=== PATIENT | female | born 1985 | race Caucasian/White ===

== ENCOUNTER → 2017-03-28 | Outpatient (CLI) | payer MEDICARE, OTHER ==
[~2017-03-28] MED LIST: *ONDANSETRON 4 MG VIAL PERIprocedural Use ONLY ONE; *RESP: ALBUTEROL 2.5 MG/3 ML NEB (PRN) PERIprocedural Use ONLY NEB ONE; ADVA250A INH; ALBU.5I NEB; ARIP1TAB7 PO; ARIP20 PO; BUPR100T4 PO; BUPR150T3 PO; CHLORHEXIDINE GLUCONATE 2 % 1 PACK (2 CLOTHS) TOPICAL PRN; COMBAER INH; DEXAMETHASONE SOD PHOS 4 MG/ML VIAL IV ONE; DO NOT ADM ANY ANTICOAGULANT DRUGS PRN; DOCU1CAP39 PO; DUONI NEB; FLON0.053 NASAL; INSULIN HUMAN REGULAR 1,000 UNITS/10 ML VIAL SQ PRN; LACTATED RINGER'S 1,000 ML BAG IV ONE; LACTATED RINGER'S 1000 ML IV PRN; LISI-363 PO; LISI-515 PO; LORTA5 PO; METOPROLOL TARTRATE 25 MG TAB PO PRN; MONT10TA2 PO; OMEP20CA2; OMEP20TA39 PO; ONDANSETRON HCL 4 MG/2 ML VIAL IV PUSH ONE; PHENYLEPH/NS 1000 MCG/10 ML SYR IV ONE; POVIDONE IODINE 5% (ANTISEPSIS KIT) 4 APPLICATIONS EACH NARE PRN; PROPOFOL 200 MG/20 ML AMP IV ONE; SERT-129 PO; SUCCINYLCHOLINE CHLORIDE 200 MG/10 ML VIAL IV ONE; TOPA50TA7 PO; TOPI25CA PO; Z.0.OXYGEN INH; Z.0.OXYGENDME NC
[2017-03-28 10:45] VITALS: BP 157/82; PULSE 83; RESP 20; TEMP 99.1; O2SAT 95
[2017-03-28 15:57] VITALS: BP 184/80; PULSE 100; RESP 18; TEMP 98.1; O2SAT 100
--- NOTE | 2017-03-29 15:32 | MR ---
cc: DEVONTE AGRAWAL DATE: 03/28/2017 PROCEDURE Upper endoscopy, colonoscopy. 1985 INDICATION FOR PROCEDURE 1. Abdominal pain. 2. Nausea, vomiting. 3. History of previous gastric sleeve procedure. 4. Rectal bleeding. Photographs and biopsies were taken, polypectomy was performed and upper endoscopy. MONITORING Monitoring was accomplished with pulse oximeter, EKG, blood pressure monitor. PROCEDURE NOTE The patient was intubated to protect the airway at the start of the procedure. This was performed by anesthesiology. After intubation was completed the forward-viewing endoscope was inserted per the oral route and the esophagus was inspected and found to be normal. There was no evidence of esophagitis. The scope was gradually passed into the stomach which revealed changes consistent with previous gastric sleeve, bariatric surgery. Elongated portion of the stomach was traversed. The antrum was approached. In the antrum two gastric polyps were noted, one about 6 mm, the other one about 5 mm, both of these were snared and removed. The antrum revealed mild gastritis. This was biopsied as well. The pylorus was patent. The first, second, third portion of the duodenum were unremarkable. In the retroflex view the cardia and fundus were unremarkable. Scope was withdrawn. The patient was repositioned and colonoscopy performed. The video enteroscope was inserted per the rectum. The rectum was carefully inspected and in the retroflex view I could not appreciate any obvious bleeding source. Scope was advanced with gentle pressure to the cecum and the terminal ileum was also entered. Mucosa throughout this examination appeared to be grossly normal. There was some residual liquefied stool which was suctioned as best possible. I did not appreciate any bleeding source or space-occupying lesions. The scope was gradually withdrawn. The patient tolerated the procedure well. Postprocedure vital signs were stable. She was to be extubated. IMPRESSION Upper endoscopy revealed previous gastric sleeve, two gastric polyps were removed and retrieved. Mild antrum gastritis was biopsied. Otherwise, upper endoscopy was unremarkable. Colonoscopy was completely unremarkable to the terminal ileum and cecum without any active bleeding source seen. PLAN Follow up biopsies taken today. Will follow up clinically as an outpatient for further discussion as to the findings and if need be further workup, we could consider gastric emptying study as well. Continue supportive therapy as an outpatient. MD MACY Escobedo/DEVAN /2:53 PM /3:16 PM
== END ==
LOC: HEND 10:36
PROVIDERS: ATTEND Internal Medicine Gastroenterology
DX: R10.9 Unspecified abdominal pain (principal); R11.2 Nausea with vomiting, unspecified; Z98.84 Bariatric surgery status; K62.5 Hemorrhage of anus and rectum; K31.7 Polyp of stomach and duodenum; K29.50 Unspecified chronic gastritis without bleeding
CPT/HCPCS: 00740; 00810; 43239; 43251; 45378; 88305; 88312; J0330; J1100; J2370; J2405; J3010; J7120; J7613; 94664

== ENCOUNTER 2017-04-24 10:29 | Inpatient (IN) | payer MEDICARE, OTHER ==
[~2017-04-24] VITALS: Ht 162.6 cm; Wt 231.3 kg
[~2017-04-24 10:29] MED LIST changes: -*ONDANSETRON 4 MG VIAL PERIprocedural Use ONLY ONE; -*RESP: ALBUTEROL 2.5 MG/3 ML NEB (PRN) PERIprocedural Use ONLY NEB ONE; -ADVA250A INH; -ARIP20 PO; -BUPR150T3 PO; -CHLORHEXIDINE GLUCONATE 2 % 1 PACK (2 CLOTHS) TOPICAL PRN; -COMBAER INH; -DEXAMETHASONE SOD PHOS 4 MG/ML VIAL IV ONE; -DO NOT ADM ANY ANTICOAGULANT DRUGS PRN; -DOCU1CAP39 PO; -DUONI NEB; -FLON0.053 NASAL; -INSULIN HUMAN REGULAR 1,000 UNITS/10 ML VIAL SQ PRN; -LACTATED RINGER'S 1,000 ML BAG IV ONE; -LACTATED RINGER'S 1000 ML IV PRN; -LISI-363 PO; -LORTA5 PO; -METOPROLOL TARTRATE 25 MG TAB PO PRN; -OMEP20TA39 PO; -ONDANSETRON HCL 4 MG/2 ML VIAL IV PUSH ONE; -PHENYLEPH/NS 1000 MCG/10 ML SYR IV ONE; -POVIDONE IODINE 5% (ANTISEPSIS KIT) 4 APPLICATIONS EACH NARE PRN; -PROPOFOL 200 MG/20 ML AMP IV ONE; -SUCCINYLCHOLINE CHLORIDE 200 MG/10 ML VIAL IV ONE; -TOPI25CA PO; -Z.0.OXYGEN INH; -Z.0.OXYGENDME NC
[2017-04-24 10:32] VITALS: BP 176/85; PULSE 88; RESP 16; TEMP 98.2; O2SAT 98
--- NOTE | 2017-04-24 11:16 | PD ---
HPI Chief Complaint: Psychiatric Symptoms Time Seen by Provider: 11:11 Travel History International Travel<30 days: No Contact w/Intl Traveler<30days: No Traveled to known affect area: No History of Present Illness HPI 32-year-old female with PMH of COPD, depression, bipolar presents to the ED for evaluation of visual and auditory hallucinations. Patient states that she has been seeing visions of dilators and knives "for years." She states that yesterday she began to hear voices saying "You're nothing. You should cut yourself." Patient admits to making several superficial scratches on the right wrist. She denies suicidal or homicidal ideation. She endorses compliance with her multiple psychiatric medications. She complains of shortness of breath which she thinks is related to her heightened anxiety. Also endorses occasional nonproductive cough. No other somatic complaints. States last tetanus immunization was in 2012. States LMP "last month." Denies risk of . PFSH Past Medical History Hx Anticoagulant Therapy: No ADD: Yes ADHD: Yes Arthritis: No Asthma: Yes Autoimmune Disease: Yes (IGG DEF) Blood Disorders: No Bipolar Disorder: Yes Anxiety: Yes Depression: Yes Heart Rhythm Problems: No Cancer: No Cardiovascular Problems: Yes (HTN) High Cholesterol: Yes Chest Pain: No Congestive Heart Failure: No COPD: Yes Cerebrovascular Accident: No Diabetes: No Diminished Hearing: No Endocrine: No Gastrointestinal Disorders: Yes (GERD) GERD: Yes Glaucoma: No Genitourinary: No Headaches: No Hepatitis: No Hiatal Hernia: No Hypertension: Yes Immune Disorder: No Kidney Stones: No Musculoskeletal: No Neurologic: No Psychiatric: Yes (BIPOLAR) Reproductive: No Respiratory: Yes (ASTHMA, ARDS) Integumentary: Yes (PSORIASIS) Myocardial Infarction: No Renal Failure: No Seizures: No Sickle Cell Disease: No Sleep Apnea: Yes (BIPAP) Thyroid Disease: No Ulcer: No ?: Not LMP: 03/25/2017 : 0 Ectopic : No Ovarian Cysts: No Tubal Ligation: No Past Surgical History Abdominal Surgery: Yes (VERTICAL SLEEVE GASTRECTOMY) AICD: No Arteriovenous Shunt: No Body Medical Devices: NONE Cardiac Surgery: No Ear Surgery: No Endocrine Surgery: No Eye Surgery: Yes (SURGERY ON RIGHT EYE) Genitourinary Surgery: No Gynecologic Surgery: No Hysterectomy: No Insulin Pump: No Joint Replacement: No Oral Surgery: Yes (ADENOIDECTOMY) Pacemaker: No Thoracic Surgery: No Tonsillectomy: Yes Other Surgery: Yes Social History Alcohol Use: No Tobacco Use: No Substance Use: No Allergies-Medications (Allergen,Severity, Reaction): Coded Allergies: Adhesives (Unverified Allergy, Severe, RASH, 04/24/17) Augmentin (Verified Allergy, Severe, VOMITING, 04/24/17) Baclofen (Unverified Allergy, Severe, NAUSEA AND VOMITING, 04/24/17) Biaxin (Verified Allergy, Severe, VOMITING, 04/24/17) Latex (Unverified Allergy, Severe, RASH/ITCHING, 04/24/17) Methocarbamol (Unverified Allergy, Severe, 04/24/17) Shellfish (Verified Allergy, Severe, Hives, 04/24/17) *MDRO Multi-Drug Resistant Organism (Verified Adverse Reaction, Unknown, ) MRSA (finger wound) - 07/11/11 Reported Meds & Prescriptions Reported Meds & Active Scripts Active Reported Topamax (Topiramate) 50 Mg Tab 50 Mg PO BID Sertraline (Sertraline HCl) 100 Mg Tab 200 Mg PO HS Omeprazole 20 Mg Cap Singulair (Montelukast Sodium) 10 Mg Tab 10 Mg PO HS Lisinopril 20 Mg Tab 20 Mg PO DAILY Albuterol Neb (Albuterol Sulfate) 2.5 Mg/0.5 Ml Neb 2.5 Mg NEB Q6HR NEB PRN Note: The Albuterol Sulfate Inhalation Solution is concentrated and must be diluted. Read complete instructions carefully before using. Bupropion HCl 100 Mg Tab 300 Mg PO HS Abilify (Aripiprazole) 20 Mg Tab 20 Mg PO DAILY Review of Systems Except as stated in HPI: all other systems reviewed are Neg Physical Exam Narrative GENERAL: Morbidly obese hirsute white female in no acute distress. PSYCHIATRIC: No delusional thought processes. Appropriate eye contact. SKIN: Focused skin assessment warm, dry, dirty. HEAD: Normocephalic. EYES: No scleral icterus. No injection or drainage. NECK: Supple, trachea midline. No JVD or lymphadenopathy. CARDIOVASCULAR: Regular rate and rhythm without murmurs, gallops, or rubs. RESPIRATORY: Breath sounds clear and equal bilaterally. No accessory muscle use. GASTROINTESTINAL: Abdomen protuberant, soft, non-tender, nondistended. Active bowel sounds. MUSCULOSKELETAL: No cyanosis, or edema. BACK: Nontender without obvious deformity. No CVA tenderness. Data Data Last Documented VS Vital Signs Date Time Temp Pulse Resp B/P Pulse Ox O2 Delivery O2 Flow Rate FiO2 04/24/17 10:32 98.2 88 16 176/85 98 Orders Complete Blood Count With Diff (04/24/17 11:04) Comprehensive Metabolic Panel (04/24/17 11:04) Urinalysis - C+S If Indicated (04/24/17 11:04) Ed Urine Pregnancytest Poc (04/24/17 11:04) Psych Screen (04/24/17 11:04) Drug Screen, Random Urine (04/24/17 11:04) Alcohol (Ethanol) (04/24/17 11:04) Chest, Single Ap (04/24/17 ) Labs Laboratory Tests Test 04/24/17 12:10 White Blood Count 8.4 TH/MM3 Red Blood Count 4.77 MIL/MM3 Hemoglobin 13.3 GM/DL Hematocrit 39.9 % Mean Corpuscular Volume 83.7 FL Mean Corpuscular Hemoglobin 27.8 PG Mean Corpuscular Hemoglobin 33.3 % Concent Red Cell Distribution Width 14.2 % Platelet Count 293 TH/MM3 Mean Platelet Volume 8.1 FL Neutrophils (%) (Auto) 54.5 % Lymphocytes (%) (Auto) 30.9 % Monocytes (%) (Auto) 8.6 % Eosinophils (%) (Auto) 5.0 % Basophils (%) (Auto) 1.0 % Neutrophils # (Auto) 4.6 TH/MM3 Lymphocytes # (Auto) 2.6 TH/MM3 Monocytes # (Auto) 0.7 TH/MM3 Eosinophils # (Auto) 0.4 TH/MM3 Basophils # (Auto) 0.1 TH/MM3 CBC Comment DIFF FINAL Differential Comment Urine Color YELLOW Urine Turbidity HAZY Urine pH 6.0 Urine Specific [place] 1.027 Urine Protein TRACE mg/dL Urine Glucose (UA) NEG mg/dL Urine Ketones NEG mg/dL Urine Occult Blood SMALL Urine Nitrite NEG Urine Bilirubin NEG Urine Urobilinogen LESS THAN 2.0 MG/DL Urine Leukocyte Esterase TRACE Urine RBC 2 /hpf Urine WBC 3 /hpf Urine Squamous Epithelial 7 /hpf Cells Urine Bacteria RARE /hpf Urine Mucus FEW /lpf Microscopic Urinalysis Comment CULT NOT INDICATED Sodium Level 141 MEQ/L Potassium Level 4.0 MEQ/L Chloride Level 109 MEQ/L Carbon Dioxide Level 25.7 MEQ/L Anion Gap 6 MEQ/L Blood Urea Nitrogen 15 MG/DL Creatinine 0.91 MG/DL Estimat Glomerular Filtration 73 ML/MIN Rate Random Glucose 102 MG/DL Calcium Level 8.8 MG/DL Total Bilirubin 0.2 MG/DL Aspartate Amino Transf 80 U/L (AST/SGOT) Alanine Aminotransferase 96 U/L (ALT/SGPT) Alkaline Phosphatase 134 U/L Total Protein 8.1 GM/DL Albumin 3.4 GM/DL Ethyl Alcohol Level LESS THAN 3 MG/DL MDM Medical Decision Making Medical Screen Exam Complete: Yes Emergency Medical Condition: Yes Medical Record Reviewed: Yes Differential Diagnosis Adjustment disorder versus anxiety versus bipolar versus depression versus dementia versus electrolyte disorder versus malingering versus mood disorder versus ODD versus psychosis versus PTSD versus schizophrenia versus schizoaffective disorder versus substance-induced mood disorder versus other Narrative Course 32-year-old female with PMH of COPD, depression, bipolar presents to the ED for evaluation of visual and auditory hallucinations. Patient states that she has been seeing visions of daggers and knives "for years." She states that yesterday she began to hear voices saying "You're nothing. You should cut yourself." Patient admits to making several superficial scratches on the right wrist. She denies suicidal or homicidal ideation. She endorses compliance with her multiple psychiatric medications. She complains of shortness of breath which she thinks is related to heightened anxiety. Also endorses occasional nonproductive cough. No other somatic complaints. Last tetanus 2012. Denies risk of . Vitals reviewed. Physical exam is unremarkable. Labs reveal elevation of LFTs which appears chronic per review of the record. No other concerning lab abnormalities. Patient is medically cleared for psychiatric evaluation. Please see psychiatric note for disposition. Diagnosis Primary Impression: Medical clearance for psychiatric admission Tanesha Shah Apr 24, 2017 11:16
--- NOTE | 2017-04-24 12:22 | RADRPT ---
EXAM DATE/TIME: 04/24/2017 11:25 [facility] COMPARISON: No previous studies available for comparison. INDICATIONS : Short of breath. MEDICAL HISTORY : Chronic obstructive pulmonary disease. asthma SURGICAL HISTORY : None. ENCOUNTER: Initial ACUITY: 1 day PAIN SCORE: 0/10 LOCATION: Bilateral chest FINDINGS: A single view of the chest is limited due to the patient's body habitus. Grossly, lungs are clear. Ac counting for the degree of inspiration, heart size is upper limits of normal. No obvious effusions. O sseous structures are intact. CONCLUSION: 1. Limited anatomic detail due to the patient's body habitus. 2. However, lungs are grossly clear. Heart size is borderline but well compensated. Flakito Thurman MD on April 24, 2017 at 12:19 Board Certified Radiologist. This report was verified electronically.
[2017-04-24 12:33] LABS: BACTERIA, URINE RARE /hpf; BLOOD, URINE SMALL (NEG); COMMENT (UR) CULT NOT INDICATED; CULTURE IF INDICATED CULT NOT INDICATED; GLUCOSE,URINE NEG (NEG); KETONE, URINE NEG (NEG); MUCUS URINE FEW /lpf (OCC); NITRITE,URINE NEG (NEG); SQUAMOUS EPITHELIAL CELL URINE 7 /hpf (0-5); URINE COLOR YELLOW (YELLW/STRAW)
[2017-04-24 12:35] LABS: AUTOMATED NEUTROPHIL # 4.6 TH/MM3 (1.8-7.7); BASOPHIL # 0.1 TH/MM3 (0-0.2); EOSINOPHIL # 0.4 TH/MM3 (0-0.4); HEMATOCRIT 39.9 % (35.0-46.0); HEMO FLAGS DIFF FINAL; LYMPH % 30.9 % (9.0-44.0); LYMPHOCYTE # 2.6 TH/MM3 (1.0-4.8); MEAN CELL VOLUME 83.7 FL (80.0-100.0); MEAN CORPUSCULAR HEMOGLOBIN 27.8 PG (27.0-34.0); MEAN CORPUSCULAR HGB CONC 33.3 % (32.0-36.0); MONO % 8.6 % (0.0-8.0); NEUT % 54.5 % (16.0-70.0); PLATELET COUNT 293 TH/MM3 (150-450); RED BLOOD COUNT 4.77 MIL/MM3 (4.00-5.30); RED CELL DISTRIBUTION WIDTH 14.2 % (11.6-17.2); WHITE BLOOD COUNT 8.4 TH/MM3 (4.0-11.0)
[2017-04-24 12:55] LABS: ALT (GPT) 96 U/L (10-53); ANION GAP 6 MEQ/L (5-15); AST (GOT) 80 U/L (15-37); BICARBONATE 25.7 MEQ/L (21.0-32.0); BLOOD UREA NITROGEN 15 MG/DL (7-18); CHLORIDE 109 MEQ/L (98-107); GLOMERULAR FILTRATION RATE 73 ML/MIN (>89); SODIUM (NA) 141 MEQ/L (136-145)
[2017-04-24 12:57] LABS: ALKALINE PHOSPHATASE 134 U/L (45-117); TOTAL BILIRUBIN ADULT 0.2 MG/DL (0.2-1.0)
[2017-04-24 19:19] VITALS: BP 141/72; PULSE 77; RESP 20; TEMP 98.4; O2SAT 93
[2017-04-24] MEDS ORDERED: diphenhydrAMINE HCL 50 MG CAP - HS PRN PO (19:45)
[2017-04-24] MEDS ORDERED: BENZTROPINE MESYLATE 1 MG TAB PO PRN (19:45)
[2017-04-24] MEDS ORDERED: ACETAMINOPHEN 325 MG TAB PO PRN (19:45)
[2017-04-24] MEDS ORDERED: MAGNESIUM HYDROXIDE SUSP 30 ML CUP PO PRN (19:45)
[2017-04-24] MEDS ORDERED: BENZTROPINE MESYLATE 2 MG/2 ML VIAL IM PRN (19:45)
[2017-04-24] MEDS ORDERED: REMOVE OLD NICOTINE PATCH T-DERMAL SCH (21:00)
[2017-04-24] MEDS: TOPIRAMATE 25 MG TAB PO SCH (22:08)
[2017-04-24] MEDS: MONTELUKAST SODIUM 10 MG TAB PO SCH (22:08)
[2017-04-24] MEDS: SERTRALINE HCL 100 MG TAB PO SCH (22:08)
[2017-04-24] MEDS: buPROPion HCL 150 MG SUSTAINED RELEASE TAB PO SCH (22:08)
[2017-04-24 22:10] VITALS: BP 172/83; PULSE 78; RESP 22; TEMP 97.7; O2SAT 94
[2017-04-25 02:04] LABS: AMPHETAMINE, URINE NEG (NEG); BARBITURATES, URINE NEG (NEG); COCAINE, URINE NEG (NEG)
[2017-04-25] MEDS: hydrOXYzine HCL 50 MG TAB PO PRN ×3 (02:45→20:10)
[2017-04-25 06:00] VITALS: BP 163/69; PULSE 78; RESP 20; TEMP 98; O2SAT 94
[2017-04-25] MEDS: buPROPion HCL 150 MG SUSTAINED RELEASE TAB PO SCH ×2 (08:18→20:10)
[2017-04-25] MEDS: PANTOPRAZOLE SOD 20 MG DELAYED RELEASE TAB PO SCH (08:18)
[2017-04-25] MEDS: TOPIRAMATE 25 MG TAB PO SCH ×2 (08:19→20:10)
[2017-04-25] MEDS: LISINOPRIL 20 MG TAB PO SCH (08:19)
[2017-04-25] MEDS ORDERED: NICOTINE 21 MG/24 HR PATCH T-DERMAL SCH (09:00)
[2017-04-25 09:13] LABS: HDL CHOLESTEROL 55.1 MG/DL (40.0-60.0); LDL CHOLESTEROL 123 MG/DL (0-99)
[2017-04-25 09:17] LABS: ANION GAP 8 MEQ/L (5-15); BICARBONATE 24.8 MEQ/L (21.0-32.0); BLOOD UREA NITROGEN 15 MG/DL (7-18); CHLORIDE 106 MEQ/L (98-107); GLOMERULAR FILTRATION RATE 85 ML/MIN (>89); SODIUM (NA) 139 MEQ/L (136-145)
[2017-04-25] MEDS ORDERED: cloNIDine HCL 0.1 MG TAB PO PRN (14:00)
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
--- NOTE | 2017-04-25 15:40 | PD.CONS ---
HPI Service [facility] Consult Requested By Psychiatry team Reason for Consult Medical management - Primary Care Physician Zay Baeza DO Diagnoses: History of Present Illness Written by Zak Rivera, acting as scribe for Dr. Villareal on 04/25/17 at 15:20. This note was transcribed by scribSumeet MCGILL. I, Dr. Maddie Villareal personally performed the history, physical exam, and medical decision making; and confirmed the accuracy of the information in the transcribed note. Authenticated by Dr. Maddie Villareal on 04/25/17 at 15:20. Patient is a 32-year-old female with primary medical history of morbid obesity, COPD, HLD, HTN, GERD, asthma, ACOSTA on BiPAP, depression, bipolar disorder who came into the hospital secondary to visual and auditory hallucinations. She is now admitted to inpatient psychiatry unit for further evaluation. Consulted for medical management. Patient states that she is hearing voices and she is also wanting to cut herself. She states that she has visual hallucinations of seeing "daggers and knives." Patient states she uses 2 L nasal cannula and BiPAP at night but not during the daytime. Reports some cough, not expectorating. Reports some nausea occasionally. Denies any vomiting, abdominal cramping. Denies any headaches, chest pain, palpitations, dizziness. Denies dysuria. Denies shortness of breath. Review of Systems Except as stated in HPI: all other systems reviewed are Neg Past Family Social History Allergies: Coded Allergies: Adhesives (Unverified Allergy, Severe, RASH, 04/24/17) Augmentin (Verified Allergy, Severe, VOMITING, 04/24/17) Baclofen (Unverified Allergy, Severe, NAUSEA AND VOMITING, 04/24/17) Biaxin (Verified Allergy, Severe, VOMITING, 04/24/17) Latex (Unverified Allergy, Severe, RASH/ITCHING, 04/24/17) Methocarbamol (Unverified Allergy, Severe, 04/24/17) Shellfish (Verified Allergy, Severe, Hives, 04/24/17) *MDRO Multi-Drug Resistant Organism (Verified Adverse Reaction, Unknown, ) MRSA (finger wound) - 07/11/11 Past Medical History Morbid obesity COPD Depression Bipolar disorder HTN HLD GERD Asthma Psoriasis ACOSTA on BiPAP Past Surgical History Vertical sleeve gastrectomy Right eye surgery Adenoidectomy Reported Medications Reported Meds & Active Scripts Active Reported Topamax (Topiramate) 50 Mg Tab 50 Mg PO BID Sertraline (Sertraline HCl) 100 Mg Tab 200 Mg PO HS Omeprazole 20 Mg Cap Singulair (Montelukast Sodium) 10 Mg Tab 10 Mg PO HS Lisinopril 20 Mg Tab 20 Mg PO DAILY Albuterol Neb (Albuterol Sulfate) 2.5 Mg/0.5 Ml Neb 2.5 Mg NEB Q6HR NEB PRN Note: The Albuterol Sulfate Inhalation Solution is concentrated and must be diluted. Read complete instructions carefully before using. Bupropion HCl 100 Mg Tab 300 Mg PO HS Abilify (Aripiprazole) 20 Mg Tab 20 Mg PO DAILY Active Ordered Medications Current Medications Medications (Trade) Dose Ordered Sig/Minesh Route Start Time Stop Time Status Last Admin (Atarax) 50 mg Q6H PRN PO 04/24/17 19:45 04/25/17 13:05 (Cogentin) 1 mg Q12H PRN PO 04/24/17 19:45 (Cogentin Inj) 1 mg Q12H PRN IM 04/24/17 19:45 (Benadryl) 50 mg HS PRN PO 04/24/17 19:45 04/24/17 22:30 (Tylenol) 650 mg Q4H PRN PO 04/24/17 19:45 (Milk Of Magnesia Liq) 30 ml DAILY PRN PO 04/24/17 19:45 (Mag-Al Plus Susp Liq) 30 ml Q6H PRN PO 04/24/17 19:45 (Abilify) 20 mg DAILY PO 04/25/17 09:00 04/25/17 08:18 (Wellbutrin Sr) 150 mg BID PO 04/24/17 21:00 04/25/17 08:18 (Prinivil) 20 mg DAILY PO 04/25/17 09:00 04/25/17 08:19 (Singulair) 10 mg HS PO 04/24/17 21:00 04/24/17 22:08 (Protonix) 20 mg DAILY PO 04/25/17 09:00 04/25/17 08:18 (Zoloft) 200 mg HS PO 04/24/17 21:00 04/24/17 22:08 (Topamax) 50 mg BID PO 04/24/17 21:00 04/25/17 08:19 (Catapres) 0.1 mg Q6H PRN PO 04/25/17 14:00 (risperDAL M-TAB) 1 mg DAILY@08,16 PO 04/25/17 16:00 Family History Mother has diabetes and high blood pressure, father has bipolar Social History Denies alcohol use Denies tobacco use Denies illicit drug use Physical Exam Vital Signs Vital Signs Date Time Temp Pulse Resp B/P Pulse Ox O2 Delivery O2 Flow Rate FiO2 04/25/17 06:00 98.0 78 20 163/69 94 04/24/17 22:10 97.7 78 22 172/83 94 04/24/17 19:19 98.4 77 20 141/72 93 Room Air Physical Exam GENERAL: This is a morbidly obese, well-developed patient, in no apparent distress. SKIN: Warm and dry. HEAD: Normocephalic. EYES: Pupils equal round and reactive. No scleral icterus. No injection or drainage. ENT: Nose without bleeding. Throat without erythema. Airway patent. NECK: Trachea midline. CARDIOVASCULAR: Regular rate and rhythm without murmurs, gallops, or rubs. RESPIRATORY: CTA. No wheezes, rales, or rhonchi. GASTROINTESTINAL: Abdomen protuberant, non-tender. Bowel sounds active 4. No guarding. MUSCULOSKELETAL: Extremities without clubbing, cyanosis, or edema. NEUROLOGICAL: Awake and alert. Cranial nerves II through XII intact. Motor and sensory grossly within normal limits. Normal speech. Laboratory Laboratory Tests Test 04/25/17 06:20 Sodium Level 139 Potassium Level 4.0 Chloride Level 106 Carbon Dioxide Level 24.8 Anion Gap 8 Blood Urea Nitrogen 15 Creatinine 0.79 Estimat Glomerular Filtration 85 Rate Random Glucose 76 Calcium Level 9.1 Triglycerides Level 139 Cholesterol Level 206 LDL Cholesterol 123 HDL Cholesterol 55.1 Cholesterol/HDL Ratio 3.73 Result Diagram: 04/24/17 1210 04/25/17 0620 Imaging Last Impressions Chest X-Ray 04/24/17 0000 Signed Impressions: Service Date/Time: Monday, April 24, 2017 11:25 - CONCLUSION: 1. Limited anatomic detail due to the patient's body habitus. 2. However, lungs are grossly clear. Heart size is borderline but well compensated. Flakito Thurman MD Assessment and Plan Problem List: (1) Morbid obesity with BMI of 70 and over, adult ICD Code: E66.01 Status: Chronic (2) Bipolar disorder, curr episode depressed, severe, w/psychotic features ICD Code: F31.5 Status: Acute (3) COPD (chronic obstructive pulmonary disease) ICD Code: J44.9 Status: Chronic (4) HTN (hypertension) ICD Code: I10 Status: Chronic Assessment and Plan Patient is a 32-year-old female with primary medical history of morbid obesity, COPD, HLD, HTN, GERD, asthma, ACOSTA on BiPAP, depression, bipolar disorder who came into the hospital secondary to visual and auditory hallucinations. She is now admitted to inpatient psychiatry unit for further evaluation. Consulted for medical management. Anxiety, depression, bipolar, suicidal ideation - Managed by psychiatry team COPD Asthma - Continue home medications Singulair - Pro-air when necessary - DuoNeb's when necessary - Chest x-ray Limited anatomic detail due to the patient's body habitus. 2. However, lungs are grossly clear. Heart size is borderline but well compensated ACOSTA - Home BiPAP. Family members will bring HTN HLD - Clonidine when necessary for now - Trend BP - Elevated cholesterol 206, LDL C 123. - Encourage lifestyle changes - Recheck in 3 months as an outpatient GERD - Pantoprazole DVT prop ambulatory Code Status Full code Discussed Condition With Patient, nursing Zak Scanlon Apr 25, 2017 15:40 Maddie Villareal MD Apr 25, 2017 15:42
[2017-04-25] MEDS: risperiDONE ODT 1 MG TAB PO SCH (16:39)
[2017-04-25 16:54] LABS: HEMOGLOBIN A1a 1.1 %; HEMOGLOBIN Ao 85.4 %; HEMOGLOBIN F 0.9 %; HEMOGLOBIN LA1C 1.6 %; HEMOGLOBIN P3 3.5 %
[2017-04-25 18:00] VITALS: BP 135/89; PULSE 78; RESP 20; TEMP 97.5; O2SAT 96
[2017-04-25] MEDS: SERTRALINE HCL 100 MG TAB PO SCH (20:11)
[2017-04-25] MEDS: MONTELUKAST SODIUM 10 MG TAB PO SCH (20:11)
[2017-04-26] MEDS: hydrOXYzine HCL 50 MG TAB PO PRN ×2 (02:19→14:47)
[2017-04-26 06:08] VITALS: BP 116/69; PULSE 62; RESP 18; TEMP 97.3; O2SAT 92
[2017-04-26 08:25] LABS: AUTOMATED NEUTROPHIL # 3.3 TH/MM3 (1.8-7.7); BASOPHIL # 0.1 TH/MM3 (0-0.2); BASOPHIL % 1.2 % (0.0-2.0); EOSINOPHIL # 0.4 TH/MM3 (0-0.4); EOSINOPHIL % 5.7 % (0.0-4.0); HEMO FLAGS DIFF FINAL; LYMPH % 37.3 % (9.0-44.0); LYMPHOCYTE # 2.5 TH/MM3 (1.0-4.8); MEAN CELL VOLUME 83.4 FL (80.0-100.0); MEAN CORPUSCULAR HEMOGLOBIN 27.8 PG (27.0-34.0); MEAN CORPUSCULAR HGB CONC 33.3 % (32.0-36.0); MONO % 7.5 % (0.0-8.0); NEUT % 48.3 % (16.0-70.0); PLATELET COUNT 246 TH/MM3 (150-450); RED BLOOD COUNT 4.56 MIL/MM3 (4.00-5.30); RED CELL DISTRIBUTION WIDTH 14.3 % (11.6-17.2); WHITE BLOOD COUNT 6.8 TH/MM3 (4.0-11.0)
[2017-04-26 08:32] LABS: ALT (GPT) 102 U/L (10-53); ANION GAP 8 MEQ/L (5-15); AST (GOT) 112 U/L (15-37); BICARBONATE 27.1 MEQ/L (21.0-32.0); BLOOD UREA NITROGEN 15 MG/DL (7-18); CHLORIDE 107 MEQ/L (98-107); GLOMERULAR FILTRATION RATE 94 ML/MIN (>89); POTASSIUM 3.7 MEQ/L (3.5-5.1); SODIUM (NA) 142 MEQ/L (136-145)
[2017-04-26] MEDS: buPROPion HCL 150 MG SUSTAINED RELEASE TAB PO SCH ×2 (08:33→21:23)
[2017-04-26 08:34] LABS: ALKALINE PHOSPHATASE 106 U/L (45-117); TOTAL BILIRUBIN ADULT 0.4 MG/DL (0.2-1.0)
[2017-04-26] MEDS: risperiDONE ODT 1 MG TAB PO SCH ×2 (08:34→16:52)
[2017-04-26] MEDS: PANTOPRAZOLE SOD 20 MG DELAYED RELEASE TAB PO SCH (08:34)
[2017-04-26] MEDS: LISINOPRIL 20 MG TAB PO SCH (08:34)
[2017-04-26] MEDS: TOPIRAMATE 25 MG TAB PO SCH ×2 (08:35→21:23)
[2017-04-26] MEDS: RESP: ALBUTEROL 2.5 MG/3 ML NEB (PRN) INH (10:09)
--- NOTE | 2017-04-26 11:53 | HHI.PYPN ---
Subjective Remarks Patient seen with nurse Sher, chart review, patient compliant medications. Patient states she had one "nightmare" that included visual of person stabbing at her with knives, and voices telling her to harm herself. She still remains depressed anxious and quite vigilant. Though she feels safer here than at home at this time. For now continue treatment Review of Systems Except as stated in HPI: all other systems reviewed are Neg Objective Alert: Yes [place]: Person, Place, Date Mood: Anxious, Depressed Affect: Restricted Memory Intact: Comment Hallucinations: Auditory, Visual (fair) Delusions: Yes Delusion Type: Paranoid (vague) Suicidal: Ideation (vague related to the auditory or visual hallucinations) Homicidal: Ideation (denies) Insight/Judgment Poor Labs Test 04/25/17 04/26/17 11:51 06:56 Nasal Screen MRSA (PCR) MRSA NOT DETECTED White Blood Count 6.8 TH/MM3 Red Blood Count 4.56 MIL/MM3 Hemoglobin 12.7 GM/DL Hematocrit 38.0 % Mean Corpuscular Volume 83.4 FL Mean Corpuscular Hemoglobin 27.8 PG Mean Corpuscular Hemoglobin 33.3 % Concent Red Cell Distribution Width 14.3 % Platelet Count 246 TH/MM3 Mean Platelet Volume 8.4 FL Neutrophils (%) (Auto) 48.3 % Lymphocytes (%) (Auto) 37.3 % Monocytes (%) (Auto) 7.5 % Eosinophils (%) (Auto) 5.7 % Basophils (%) (Auto) 1.2 % Neutrophils # (Auto) 3.3 TH/MM3 Lymphocytes # (Auto) 2.5 TH/MM3 Monocytes # (Auto) 0.5 TH/MM3 Eosinophils # (Auto) 0.4 TH/MM3 Basophils # (Auto) 0.1 TH/MM3 CBC Comment DIFF FINAL Differential Comment Sodium Level 142 MEQ/L Potassium Level 3.7 MEQ/L Chloride Level 107 MEQ/L Carbon Dioxide Level 27.1 MEQ/L Anion Gap 8 MEQ/L Blood Urea Nitrogen 15 MG/DL Creatinine 0.73 MG/DL Estimat Glomerular Filtration 94 ML/MIN Rate Random Glucose 85 MG/DL Calcium Level 8.8 MG/DL Total Bilirubin 0.4 MG/DL Aspartate Amino Transf 112 U/L (AST/SGOT) Alanine Aminotransferase 102 U/L (ALT/SGPT) Alkaline Phosphatase 106 U/L Total Protein 7.4 GM/DL Albumin 3.2 GM/DL Vitals/IOs Vital Signs Date Time Temp Pulse Resp B/P Pulse Ox O2 Delivery O2 Flow Rate FiO2 04/26/17 06:08 97.3 62 18 116/69 92 04/24/17 19:19 Room Air Intake and Output 04/25/17 04/25/17 04/26/17 08:00 16:00 00:00 Intake Total 720 ml 480 ml Balance 720 ml 480 ml Assessment & Plan Problem List: (1) Morbid obesity with BMI of 70 and over, adult ICD Code: E66.01 (2) Bipolar disorder, curr episode depressed, severe, w/psychotic features ICD Code: F31.5 Assessment & Plan Estimated LOS: days patient continues depressed vaguely suicidal psychotic features. Compliant medications. For now continue treatment Justification for Cont. Inpt. At this time patient will decompensate placed in a lower level of care Discharge Planning To be determined Request HC Surrog/Guard Advoc?: No Nain Burgess MD Apr 26, 2017 11:53
[2017-04-26 16:30] VITALS: BP 130/75; PULSE 77; RESP 18; TEMP 98.3; O2SAT 95
[2017-04-26] MEDS: MONTELUKAST SODIUM 10 MG TAB PO SCH (21:23)
[2017-04-26] MEDS: SERTRALINE HCL 100 MG TAB PO SCH (21:24)
[2017-04-27 05:40] VITALS: BP 124/56; PULSE 56; RESP 17; TEMP 98; O2SAT 96
[2017-04-27] MEDS: risperiDONE ODT 1 MG TAB PO SCH ×2 (08:41→16:13)
[2017-04-27] MEDS: PANTOPRAZOLE SOD 20 MG DELAYED RELEASE TAB PO SCH (08:41)
[2017-04-27] MEDS: buPROPion HCL 150 MG SUSTAINED RELEASE TAB PO SCH ×2 (08:42→19:48)
[2017-04-27] MEDS: TOPIRAMATE 25 MG TAB PO SCH ×2 (08:42→19:48)
[2017-04-27] MEDS: LISINOPRIL 20 MG TAB PO SCH (08:43)
--- NOTE | 2017-04-27 11:41 | HHI.PYPN ---
Subjective Remarks Patient seen in [place] of floor staff, chart review, compliant medications. Patient calm cooperative today stating she is sleeping better and had no bad dreams last night. He states the first time today she is not experiencing any auditory or visual hallucinations. States is talked with her mother and fianc the also feel she is improving. For now continue treatment Review of Systems Except as stated in HPI: all other systems reviewed are Neg Objective Alert: Yes [place]: Person, Place, Date Mood: Anxious, Depressed Affect: Restricted Memory Intact: Comment Hallucinations: Auditory (denies today), Visual (denies today) Delusions: Yes Delusion Type: Paranoid (denies) Suicidal: Ideation (denies) Homicidal: Ideation (deny) Insight/Judgment Poor Vitals/IOs Vital Signs Date Time Temp Pulse Resp B/P Pulse Ox O2 Delivery O2 Flow Rate FiO2 04/27/17 05:40 98.0 56 17 124/56 96 04/24/17 19:19 Room Air Assessment & Plan Problem List: (1) Morbid obesity with BMI of 70 and over, adult ICD Code: E66.01 (2) Bipolar disorder, curr episode depressed, severe, w/psychotic features ICD Code: F31.5 Assessment & Plan Estimated LOS: days patient showing some decrease in her psychosis now denying voices or visions. States he had no bad dreams last night. For now continue treatment will need to see some consistency with this improvement Justification for Cont. Inpt. At this time patient may decompensate if not observe for further continuation of her improvement Discharge Planning To be determined Request HC Surrog/Guard Advoc?: No Nain Burgess MD Apr 27, 2017 11:41
[2017-04-27] MEDS: ONDANSETRON ODT 4 MG TAB PO PRN (16:46)
[2017-04-27 17:27] VITALS: BP 148/68; PULSE 63; RESP 18; TEMP 97.2; O2SAT 98
--- NOTE | 2017-04-27 17:55 | HHI.PR ---
Subjective Remarks Follow-up visit abdominal pain, elevated liver enzymes. Patient seen and examined today. Reported nausea without vomiting. Patient was given Zofran as ordered. States she has some relief. Abdominal pain rated 6/10, started today , aggravated by movement, intermittent aching, dull, sharp pain starts from right side going to the left side. Patient states she's been having on and off abdominal pain since her cholecystectomy surgery. Discussed lab results with patient elevated liver enzymes. Discussed plan of treatment. Denies SOB/ dyspnea. Denies chest pain, palpitations, headaches, dizziness. Denies fevers, chills. Denies dysuria. Objective Vitals Vital Signs Date Time Temp Pulse Resp B/P Pulse Ox O2 Delivery O2 Flow Rate FiO2 04/27/17 17:27 97.2 63 18 148/68 98 04/27/17 05:40 98.0 56 17 124/56 96 Result Diagram: 04/26/17 0656 04/26/17 0656 Imaging Last Impressions Chest X-Ray 04/24/17 0000 Signed Impressions: Service Date/Time: Monday, April 24, 2017 11:25 - CONCLUSION: 1. Limited anatomic detail due to the patient's body habitus. 2. However, lungs are grossly clear. Heart size is borderline but well compensated. Flakito Thurman MD Objective Remarks GENERAL: This is a morbidly obese, well-developed patient, in no apparent distress. SKIN: Warm and dry. HEAD: Normocephalic. EYES: Pupils equal round and reactive. No scleral icterus. No injection or drainage. ENT: Nose without bleeding. Throat without erythema. Airway patent. NECK: Trachea midline. CARDIOVASCULAR: Regular rate and rhythm without murmurs, gallops, or rubs. RESPIRATORY: CTA. No wheezes, rales, or rhonchi. GASTROINTESTINAL: Abdomen protuberant. Bowel sounds active 4. Tender to palpate right quadrant, left quadrant. No tenderness mid epigastric region. MUSCULOSKELETAL: Extremities without clubbing, cyanosis, or edema. NEUROLOGICAL: Awake and alert. No focal neuro deficit. Motor and sensory grossly within normal limits. Normal speech. A/P Problem List: (1) Morbid obesity with BMI of 70 and over, adult ICD Code: E66.01 Status: Chronic (2) Bipolar disorder, curr episode depressed, severe, w/psychotic features ICD Code: F31.5 Status: Acute (3) COPD (chronic obstructive pulmonary disease) ICD Code: J44.9 Status: Chronic (4) HTN (hypertension) ICD Code: I10 Status: Chronic Assessment and Plan Patient is a 32-year-old female with primary medical history of morbid obesity, COPD, HLD, HTN, GERD, asthma, ACOSTA on BiPAP, depression, bipolar disorder who came into the hospital secondary to visual and auditory hallucinations. She is now admitted to inpatient psychiatry unit for further evaluation. Consulted for medical management. Abdominal Pain, associated with nausea Transaminitis - AST 111, [id number] - US liver follow-up results - Recheck labs LFTs, BMP, hepatitis profile - If US liver shows an abnormality will consult GI for recommendations - Avoid hepatotoxic medications - Zofran when necessary Anxiety, depression, bipolar, suicidal ideation - Managed by psychiatry team COPD Asthma - Continue home medications Singulair - Pro-air when necessary - DuoNeb's when necessary - Chest x-ray Limited anatomic detail due to the patient's body habitus. 2. However, lungs are grossly clear. Heart size is borderline but well compensated ACOSTA - Home BiPAP. Family members will bring HTN HLD - Clonidine when necessary for now - Trend BP - Elevated cholesterol 206, LDL C 123. - ASCVD risk not recommended for Statin use - Encourage lifestyle changes - Recheck in 3 months as an outpatient GERD - Pantoprazole DVT prop ambulatory Full code Discussed Condition with Patient, nursing, Zak Adrian Apr 27, 2017 17:54
[2017-04-27] MEDS: SERTRALINE HCL 100 MG TAB PO SCH (19:48)
[2017-04-27] MEDS: MONTELUKAST SODIUM 10 MG TAB PO SCH (19:48)
--- NOTE | 2017-04-27 20:16 | RADRPT ---
EXAM DATE/TIME: 04/27/2017 18:43 [facility] COMPARISON: No previous studies available for comparison. INDICATIONS : Abnormal labs. MEDICAL HISTORY : Hypertension. Hypercholesterolemia. Chronic obstructive pulmonary disease. Asthma. Sleep apnea. GERD. Bipolar. ADHD. PTSD. SURGICAL HISTORY : Cholecystectomy. Right eye surgery. Adenoidectomy. Veritcal sleeve gastrectomy. ENCOUNTER: Initial ACUITY: 1 day PAIN SCORE: 7/10 LOCATION: Right upper quadrant MEASUREMENTS: LIVER: 20.6 cm length COMMON DUCT: Non-visualized RIGHT KIDNEY: 12.8 x 5.6 x 4.9 cm SPLEEN: 15.6 cm length FINDINGS: Examination is limited due to patient body habitus and bowel gas. There is previous cholecystectomy. Liver enlarged to 20.6 cm with fatty infiltration. Spleen also enlarged to 15.6 cm. Gallbladder, comm on bile duct and portal vein aren't clearly identified. CONCLUSION: 1. Fatty liver enlarged to 20.6 cm. Spleen enlarged to 15.6 cm. No free fluid. Exam technically limit ed. The gallbladder and bile ducts are not clearly visualized. Daquan Mabry MD on April 27, 2017 at 20:13 Board Certified Radiologist. This report was verified electronically.
[2017-04-27] MEDS: RESP: ALBUTEROL 2.5 MG/3 ML NEB (PRN) INH (21:40)
[2017-04-28 04:04] LABS: BICARBONATE 28.3 MEQ/L (21.0-32.0); POTASSIUM 4.2 MEQ/L (3.5-5.1)
[2017-04-28 04:06] LABS: INDIRECT BILIRUBIN 0.2 MG/DL (0.0-0.8); TOTAL BILIRUBIN ADULT 0.3 MG/DL (0.2-1.0)
[2017-04-28 06:01] VITALS: BP 135/73; PULSE 56; RESP 19; TEMP 98.9; O2SAT 96
[2017-04-28] MEDS: ONDANSETRON ODT 4 MG TAB PO PRN ×3 (08:09→22:13)
[2017-04-28] MEDS: PANTOPRAZOLE SOD 20 MG DELAYED RELEASE TAB PO SCH (09:32)
[2017-04-28] MEDS: buPROPion HCL 150 MG SUSTAINED RELEASE TAB PO SCH ×2 (09:32→22:09)
[2017-04-28] MEDS: LISINOPRIL 20 MG TAB PO SCH (09:32)
[2017-04-28] MEDS: TOPIRAMATE 25 MG TAB PO SCH ×2 (09:32→22:09)
[2017-04-28] MEDS: risperiDONE ODT 1 MG TAB PO SCH ×2 (09:34→16:00)
[2017-04-28] MEDS: RESP: ALBUTEROL 2.5 MG/3 ML NEB (PRN) INH (12:18)
[2017-04-28] MEDS: ALUMINUM/MAGNESIUM/SIMETH 30 ML CUP PO PRN (13:00)
--- NOTE | 2017-04-28 14:23 | HHI.PR ---
Subjective Remarks At the margin of the bed. Patient says she felt nauseated and vomited 4 times liquid in the morning. However she was able to tolerate breakfast and lunch. She also has bilateral upper quadrant abdominal pain, nonradiating, intermittent , mild to moderate in intensity . No diarrhea. No fever or chills. Patient says she had natasha done. Objective Vitals Vital Signs Date Time Temp Pulse Resp B/P Pulse Ox O2 Delivery O2 Flow Rate FiO2 04/28/17 06:01 98.9 56 19 135/73 96 04/27/17 17:27 97.2 63 18 148/68 98 Result Diagram: 04/26/17 0656 04/28/17 0319 Imaging Last Impressions Liver Ultrasound 04/27/17 0000 Signed Impressions: Service Date/Time: Thursday, April 27, 2017 18:43 - CONCLUSION: 1. Fatty liver enlarged to 20.6 cm. Spleen enlarged to 15.6 cm. No free fluid. Exam technically limited. The gallbladder and bile ducts are not clearly visualized. Daquan Mabry MD Chest X-Ray 04/24/17 0000 Signed Impressions: Service Date/Time: Monday, April 24, 2017 11:25 - CONCLUSION: 1. Limited anatomic detail due to the patient's body habitus. 2. However, lungs are grossly clear. Heart size is borderline but well compensated. Flakito Thurman MD Objective Remarks GENERAL: This is a very pleasant 32 yo F, morbidly obese, well-developed patient , in no apparent distress. CARDIOVASCULAR: Regular rate and rhythm without murmurs, gallops, or rubs. RESPIRATORY: CTA all lung ji. No wheezes, rales, or rhonchi. GASTROINTESTINAL: Abdomen protuberant. Bowel sounds active 4. Tender to palpate right quadrant, left quadrant. No tenderness mid epigastric region. MUSCULOSKELETAL: Extremities without clubbing, cyanosis, or edema. NEUROLOGICAL: Awake and alert. No focal neuro deficit. Motor and sensory grossly within normal limits. Normal speech. A/P Problem List: (1) Morbid obesity with BMI of 70 and over, adult ICD Code: E66.01 Status: Chronic (2) Bipolar disorder, curr episode depressed, severe, w/psychotic features ICD Code: F31.5 Status: Acute (3) COPD (chronic obstructive pulmonary disease) ICD Code: J44.9 Status: Chronic (4) HTN (hypertension) ICD Code: I10 Status: Chronic Assessment and Plan Patient is a 32-year-old female with primary medical history of morbid obesity, COPD, HLD, HTN, GERD, asthma, ACOSTA on BiPAP, depression, bipolar disorder who came into the hospital secondary to visual and auditory hallucinations. She is now admitted to inpatient psychiatry unit for further evaluation. Consulted for medical management. Abdominal Pain, associated with nausea Transaminitis Hepatosplenomegaly AST 111, [id number], trend US liver reviewed and findings discussed with the patient, with hepatosplenomegaly Monitor LFTs, BMP, hepatitis profile Consult GI for recommendations Avoid hepatotoxic medications Zofran when necessary Anxiety, depression, bipolar, suicidal ideation- Managed by psychiatry team COPD Asthma Continue home medications Singulair Pro-air when necessary DuoNeb's when necessary Chest x-ray Limited anatomic detail due to the patient's body habitus. 2. However, lungs are grossly clear. Heart size is borderline but well compensated ACOSTA - Home BiPAP. Family members will bring HTN HLD Clonidine when necessary for now Trend BP Elevated cholesterol 206, LDL C 123. ASCVD risk not recommended for Statin use Encourage lifestyle changes Recheck in 3 months as an outpatient GERD- Pantoprazole Morbid obesity with BMI of 87.2. Diet and exercise. DVT prophy ambulatory Full code Discussed with the patient, nurse Maddie Villareal MD Apr 28, 2017 14:23
[2017-04-28] MEDS ORDERED: DIATRIZOATE MEGLUM/DIATRIZOATE SOD 9 ML CUP PO ONE (15:45)
--- NOTE | 2017-04-28 16:18 | HHI.PYPN ---
Subjective Remarks Pt seen and discussed with staff. She reports that mood is improved and she denies SI/HI. She is compliant with medications and denies side effects. She denies AVH and delusional ideations. Objective Alert: Yes [place]: Person, Place, Date Mood: Calm Affect: Restricted Memory Intact: Comment (intact) Hallucinations: Other (none) Delusions: No Delusion Type: Other (no delusional content) Suicidal: Ideation (denies) Homicidal: Ideation (deny) Insight/Judgment fair Labs Test 04/28/17 03:19 Sodium Level 141 MEQ/L Potassium Level 4.2 MEQ/L Chloride Level 106 MEQ/L Carbon Dioxide Level 28.3 MEQ/L Anion Gap 7 MEQ/L Blood Urea Nitrogen 13 MG/DL Creatinine 0.84 MG/DL Estimat Glomerular Filtration 80 ML/MIN Rate Random Glucose 105 MG/DL Calcium Level 8.7 MG/DL Total Bilirubin 0.3 MG/DL Direct Bilirubin 0.1 MG/DL Indirect Bilirubin 0.2 MG/DL Aspartate Amino Transf 97 U/L (AST/SGOT) Alanine Aminotransferase 101 U/L (ALT/SGPT) Alkaline Phosphatase 110 U/L Total Protein 7.4 GM/DL Albumin 3.3 GM/DL Lipase 113 U/L Vitals/IOs Vital Signs Date Time Temp Pulse Resp B/P Pulse Ox O2 Delivery O2 Flow Rate FiO2 04/28/17 06:01 98.9 56 19 135/73 96 04/24/17 19:19 Room Air Assessment & Plan Problem List: (1) Bipolar disorder, curr episode depressed, severe, w/psychotic features ICD Code: F31.5 (2) Morbid obesity with BMI of 70 and over, adult ICD Code: E66.01 Assessment & Plan PT improving. Continue current tx plan. Estimated LOS: days Justification for Cont. Inpt. risk of decompensation. Request HC Surrog/Guard Advoc?: Rosa Maria Tapia MD Apr 28, 2017 16:18
[2017-04-28 18:35] VITALS: BP 143/67; PULSE 90; RESP 30; TEMP 97.9; O2SAT 95
[2017-04-28] MEDS ORDERED: IOHEXOL 350 MG/ML 10 ML VIAL (for RAD DIAG) IV ONE (20:14)
--- NOTE | 2017-04-28 20:31 | RADRPT ---
EXAM DATE/TIME: 04/28/2017 20:02 [facility] COMPARISON: No previous studies available for comparison. INDICATIONS : Bilateral upper quadrant pain. IV CONTRAST: 96 cc Omnipaque 350 (iohexol) IV ORAL CONTRAST: Prescribed oral contrast ingested. RADIATION DOSE: 29.25 CTDIvol (mGy) ; Patient body habitus MEDICAL HISTORY : Gastroesophageal reflux disease. Chronic obstructive pulmonary disease. Hypertension. SURGICAL HISTORY : Gasterectomy. ENCOUNTER: Initial ACUITY: 1 day PAIN SCALE: 6/10 LOCATION: Bilateral upper quadrant abdomen TECHNIQUE: Volumetric scanning of the abdomen and pelvis was performed. Using automated exposure control and ad justment of the mA and/or kV according to patient size, radiation dose was kept as low as reasonably achievable to obtain optimal diagnostic quality images. DICOM format image data is available electro nically for review and comparison. FINDINGS: Image quality is compromised due to out of field artifact related to patient's body size. The study is still diagnostic. LOWER LUNGS: The visualized lower lungs are clear. LIVER: Homogeneous density without lesion for noncontrast technique. There is no dilation of the biliary tr ee. Cholecystectomy. SPLEEN: Normal size without lesion. PANCREAS: Within normal limits. KIDNEYS: Normal in size and shape. There is no mass, stone or hydronephrosis. ADRENAL GLANDS: Within normal limits. VASCULAR: There is no aortic aneurysm. BOWEL/MESENTERY: No dilated loops of small or large bowel. ABDOMINAL WALL: Within normal limits. RETROPERITONEUM: There is no lymphadenopathy. BLADDER: No wall thickening or mass. REPRODUCTIVE: Within normal limits. INGUINAL: There is no lymphadenopathy or hernia. MUSCULOSKELETAL: Within normal limits for patient age. CONCLUSION: Negative noncontrast CT abdomen/pelvis. Eloy Marr MD on April 28, 2017 at 20:27 Board Certified Radiologist. This report was verified electronically.
[2017-04-28] MEDS: SERTRALINE HCL 100 MG TAB PO SCH (22:09)
[2017-04-28] MEDS: MONTELUKAST SODIUM 10 MG TAB PO SCH (22:09)
[2017-04-29] MEDS: ALUMINUM/MAGNESIUM/SIMETH 30 ML CUP PO PRN (05:25)
[2017-04-29 06:06] VITALS: BP 170/82; PULSE 86; RESP 21; TEMP 98.1; O2SAT 95
[2017-04-29] MEDS: LISINOPRIL 20 MG TAB PO SCH (08:33)
[2017-04-29] MEDS: TOPIRAMATE 25 MG TAB PO SCH ×2 (08:33→20:07)
[2017-04-29] MEDS: PANTOPRAZOLE SOD 20 MG DELAYED RELEASE TAB PO SCH (08:34)
[2017-04-29] MEDS: buPROPion HCL 150 MG SUSTAINED RELEASE TAB PO SCH ×2 (08:34→20:06)
[2017-04-29] MEDS: ONDANSETRON ODT 4 MG TAB PO PRN ×2 (08:36→18:18)
[2017-04-29] MEDS: risperiDONE ODT 1 MG TAB PO SCH ×2 (08:36→16:30)
--- NOTE | 2017-04-29 13:29 | MB ---
cc: DEVONTE PATEL LOUIS M. MD DATE OF CONSULTATION: 04/29/2017. REASON FOR CONSULTATION: Fatty liver. REFERRING PHYSICIAN: Dr. Burgess. HISTORY OF PRESENT ILLNESS: This is a 32-year-old female who was admitted a few days ago after coming to the emergency department voluntarily with complaints of increased auditory and visual hallucinations and showing increase in self-harming behaviors. I would refer to the psychiatry notes for details. The patient states that she is feeling better from a psychiatric standpoint. She was recently referred to Dr. Patel for several months of vomiting, upper abdominal pain and rectal bleeding. She underwent EGD and colonoscopy with Dr. Patel at the end of March of this year. The endoscopy was done March 28 and revealed a prior gastric sleeve anatomy and two benign gastric polyps were removed. Mild antrum gastritis was biopsied and negative for H. Pylori. Colonoscopy was completely unremarkable to the terminal ileum. The patient has had recent imaging with an abdominal ultrasound done this admission on April 27 that showed fatty liver with an enlarged liver and an enlarged spleen but the study was technically limited due to her body size. She had a CT scan of her abdomen and pelvis done yesterday and the report mentions that she received both IV and oral contrast but the radiologist's conclusion was that it was a negative noncontrast study. The liver appeared homogeneous without bile duct dilation. The pancreas appeared normal and there were no signs of bowel obstruction. The patient has had chronically elevated liver chemistries. Her AST is most recently 97 with an ALT of 101, alkaline phosphatase of 110, total bilirubin of 0.3 and a low albumin of 3.3. Her lipase was normal. Her viral hepatitis serology is pending. The patient states that she had a gastric sleeve done by Dr. Sanchez in 2010 and lost over 100 pounds but then due to psychiatric issues gained the weight back. She states she had her gallbladder removed laparoscopically in May of 2016 and there was mention in the op note of fatty liver but the liver was not biopsied at that time. She states that she felt well for about a few weeks after her gallbladder removal, but since then she has had frequent upper abdominal pain which she describes as a sharp stabbing pain in both upper quadrants that usually lasts about an hour. Sometimes eating triggers it but at other times it occurs without eating. She states that she vomits up food that she recently ingested about five minutes after eating. This has not changed over the past several months. SOCIAL HISTORY: The patient is single but she lives at home with her mother and a fiance'. She has no children. She does not use tobacco products or drink alcohol. PAST MEDICAL HISTORY: Her medical history is remarkable for: 1. Morbid obesity status post gastric sleeve in 2010. 2. History of COPD. 3. Asthma. 4. History of bipolar disorder with depression. 5. History of hypertension. 6. History of gastroesophageal reflux disease. 7. History of psoriasis. 8. History of sleep apnea on BiPAP. PAST SURGICAL HISTORY: 1. She has had the gastric sleeve. 2. She had a tracheostomy. 3. She has had an adenoidectomy. 4. Right eye surgery. 5. Laparoscopic cholecystectomy. MEDICATIONS: Her medications at home have included: 1. Topamax 50 milligrams twice a day. 2. Sertraline 100 milligrams two tablets at bedtime. 3. Omeprazole 20 milligrams daily. 4. Singulair 10 milligrams at bedtime. 5. Lisinopril 20 milligrams daily. 6. Albuterol inhaler PRN. 7. Bupropion 100 milligrams three tablets at bedtime. 8. Abilify 20 milligrams daily. ALLERGIES: 1. ADHESIVES CAUSE A RASH. 2. AUGMENTIN CAUSED VOMITING. 3. BACLOFEN CAUSED NAUSEA AND VOMITING. 4. BIAXIN CAUSED VOMITING. 5. LATEX CAUSES A RASH AND ITCHING. 6. METHOCARBAMOL. 7. SHELLFISH WHICH CAUSES HIVES. REVIEW OF SYSTEMS: Her review of systems is remarkable for the gastrointestinal symptoms as described above. She states that she is still seeing blood when she goes to the bathroom but she is not certain if it is from the rectum or the vaginal area. She denies any recent weight loss. No fever or chills. No dysphagia. No heartburn on omeprazole. She has had the recent hallucinations and other psychiatric problems as mentioned above. Remainder of the review of systems was unremarkable. PHYSICAL EXAMINATION: GENERAL: Physical exam reveals a morbidly obese female in no acute distress. She has a pleasant affect. VITAL SIGNS: Her blood pressure is 170/82, pulse 86, respirations are 21, temperature is 98.1 orally. HEAD, EYES, EARS, NOSE, THROAT: Sclerae anicteric. She has a tracheostomy scar. LUNGS: Grossly clear. HEART: Heart sounds are distant but regular. ABDOMEN: Abdomen is obese and rounded with diffuse upper abdominal tenderness. No focal tenderness. No palpable masses. Difficult to appreciate any organomegaly given her obesity. EXTREMITIES: No pitting edema. SKIN: Warm and dry. NEUROLOGIC: She was alert and oriented. LABORATORY FINDINGS: In addition to the above, her platelet count is normal at 246,000, hemoglobin 12.7 with an MCV of 83.4. Liver function tests were as described above. Her creatinine is normal 0.84, BUN 13. Urine drug screen was negative. Urinalysis - culture not indicated. I IMPRESSION: 1. Elevated liver enzymes with hepatomegaly on imaging. The patient most likely has nonalcoholic fatty liver disease. 2. Chronic upper abdominal pain with nausea and vomiting. Etiology unclear. Given the recent negative CT scan and upper endoscopy, she may have adhesions or motility disorder. There is no sign of bile duct dilation and her alkaline phosphatase and her bilirubin are normal, so a common bile duct stone or other biliary pathology unlikely. PLAN: 1. Would recommend further blood tests to screen for autoimmune and metabolic liver disease. 2. Because of her psychiatric history, will screen for Vaughn's disease. 3. At some point, a liver biopsy should be considered. 4. Can also consider a gastric emptying scan as well as an upper GI with small bowel follow through once she is stable from a psychiatric standpoint. Will be available to see her while she is in the hospital; otherwise, she should follow up with Dr. Patel in the office after discharge. Thank you for this consultation. MD DEBI Kapoor/AVA /12:48 PM /1:10 PM LING
--- NOTE | 2017-04-29 14:57 | HHI.PYPN ---
Subjective Remarks Pt seen and discussed with staff. She denies AVH and SI/HI. She has been engaging in staff splitting and hygiene is poor. She is compliant with medications and denies side effects. Active in milieu and socializing with peers. Objective Alert: Yes [place]: Person, Place, Date Mood: Calm Affect: Restricted Memory Intact: Comment (intact) Hallucinations: Other (none) Delusions: No Delusion Type: Other (no delusional content) Suicidal: Ideation (denies) Homicidal: Ideation (deny) Insight/Judgment Continue current tx plan. Vitals/IOs Vital Signs Date Time Temp Pulse Resp B/P Pulse Ox O2 Delivery O2 Flow Rate FiO2 04/29/17 06:06 98.1 86 21 170/82 95 Assessment & Plan Problem List: (1) Bipolar disorder, curr episode depressed, severe, w/psychotic features ICD Code: F31.5 (2) Morbid obesity with BMI of 70 and over, adult ICD Code: E66.01 Assessment & Plan continue current tx plan. Estimated LOS: days Justification for Cont. Inpt. risk of decompensating Request HC Surrog/Guard Advoc?: Rosa Maria Tapia MD Apr 29, 2017 14:57
[2017-04-29] MEDS: hydrOXYzine HCL 50 MG TAB PO PRN ×2 (15:38→20:06)
[2017-04-29 16:46] VITALS: BP 109/60; PULSE 74; RESP 18; TEMP 97.4
--- NOTE | 2017-04-29 18:20 | HHI.PR ---
Subjective Remarks Says she has pain in her abdomen, RUQ and LUQ. CT abd results reviewed. No cp, sob, n/v/d/c. Objective Vitals Vital Signs Date Time Temp Pulse Resp B/P Pulse Ox O2 Delivery O2 Flow Rate FiO2 04/29/17 16:46 97.4 74 18 109/60 04/29/17 06:06 98.1 86 21 170/82 95 04/28/17 18:35 97.9 90 30 143/67 95 I/O 04/28/17 04/28/17 04/28/17 04/29/17 04/29/17 04/29/17 07:00 15:00 23:00 07:00 15:00 23:00 Intake Total 550 ml Balance 550 ml Intake Oral 550 ml # Voids 2 Result Diagram: 04/26/17 0656 04/28/17 0319 Imaging Last Impressions Abdomen/Pelvis CT 04/28/17 0000 Signed Impressions: Service Date/Time: Friday, April 28, 2017 20:02 - CONCLUSION: Negative noncontrast CT abdomen/pelvis. Eloy Marr MD Liver Ultrasound 04/27/17 0000 Signed Impressions: Service Date/Time: Thursday, April 27, 2017 18:43 - CONCLUSION: 1. Fatty liver enlarged to 20.6 cm. Spleen enlarged to 15.6 cm. No free fluid. Exam technically limited. The gallbladder and bile ducts are not clearly visualized. Daquan Mabry MD Chest X-Ray 04/24/17 0000 Signed Impressions: Service Date/Time: Monday, April 24, 2017 11:25 - CONCLUSION: 1. Limited anatomic detail due to the patient's body habitus. 2. However, lungs are grossly clear. Heart size is borderline but well compensated. Flakito Thurman MD Objective Remarks GENERAL: This is a very pleasant 32 yo F, morbidly obese, well-developed patient , in no apparent distress. CARDIOVASCULAR: Regular rate and rhythm without murmurs, gallops, or rubs. RESPIRATORY: CTA all lung ji. No wheezes, rales, or rhonchi. GASTROINTESTINAL: Abdomen protuberant. Bowel sounds active 4. Tender to palpate right quadrant, left quadrant. No tenderness mid epigastric region. MUSCULOSKELETAL: Extremities without clubbing, cyanosis, or edema. NEUROLOGICAL: Awake and alert. No focal neuro deficit. Motor and sensory grossly within normal limits. Normal speech. A/P Problem List: (1) Morbid obesity with BMI of 70 and over, adult ICD Code: E66.01 Status: Chronic (2) Bipolar disorder, curr episode depressed, severe, w/psychotic features ICD Code: F31.5 Status: Acute (3) COPD (chronic obstructive pulmonary disease) ICD Code: J44.9 Status: Chronic (4) HTN (hypertension) ICD Code: I10 Status: Chronic Assessment and Plan Patient is a 32-year-old female with primary medical history of morbid obesity, COPD, HLD, HTN, GERD, asthma, ACOSTA on BiPAP, depression, bipolar disorder who came into the hospital secondary to visual and auditory hallucinations. She is now admitted to inpatient psychiatry unit for further evaluation. Consulted for medical management. Abdominal Pain, associated with nausea. Nausea resolved, able to tolerate food, still with abdominal pain. Transaminitis Hepatosplenomegaly AST 111, [id number], trend US liver reviewed and findings discussed with the patient, with hepatosplenomegaly Monitor LFTs, BMP, hepatitis profile Consult GI for recommendations Avoid hepatotoxic medications Zofran when necessary Add bentyl as patient says seh is taking at home and helps with pain some. Add oxycodone PO Q8hrs PRN, discussed with the patient will try to limit tylenol and narcotic use 2/2 enlarged liver. Anxiety, depression, bipolar, suicidal ideation- Managed by psychiatry team COPD Asthma Continue home medications Singulair Pro-air when necessary DuoNeb's when necessary Chest x-ray Limited anatomic detail due to the patient's body habitus. 2. However, lungs are grossly clear. Heart size is borderline but well compensated ACOSTA - Home BiPAP. Family members will bring HTN HLD Clonidine when necessary for now Trend BP Elevated cholesterol 206, LDL C 123. ASCVD risk not recommended for Statin use Encourage lifestyle changes Recheck in 3 months as an outpatient GERD- Pantoprazole Morbid obesity with BMI of 87.2. Diet and exercise. DVT prophy ambulatory Full code Discussed with the patient, nurse Maddie Villareal MD Apr 29, 2017 18:20
[2017-04-29 18:41] LABS: PROTHROMBIN TIME - PATIENT 10.7 SEC (9.8-11.6)
[2017-04-29 18:46] LABS: TRANSFERRIN IRON PROFILE 264 MG/DL (200-360)
[2017-04-29 18:48] LABS: FERRITIN 70 NG/ML (8-252)
[2017-04-29] MEDS: MONTELUKAST SODIUM 10 MG TAB PO SCH (20:06)
[2017-04-29] MEDS: SERTRALINE HCL 100 MG TAB PO SCH (20:06)
[2017-04-29] MEDS: DICYCLOMINE HCL 10 MG CAP PO SCH (20:06)
[2017-04-30] MEDS: ONDANSETRON ODT 4 MG TAB PO PRN (06:06)
[2017-04-30 06:18] VITALS: BP 112/63; PULSE 63; RESP 17; TEMP 97.5; O2SAT 97
[2017-04-30 08:32] LABS: ALT (GPT) 112 U/L (10-53)
[2017-04-30 08:34] LABS: ALKALINE PHOSPHATASE 124 U/L (45-117); TOTAL BILIRUBIN ADULT 0.5 MG/DL (0.2-1.0)
[2017-04-30] MEDS: PANTOPRAZOLE SOD 20 MG DELAYED RELEASE TAB PO SCH (08:39)
[2017-04-30] MEDS: LISINOPRIL 20 MG TAB PO SCH (08:39)
[2017-04-30] MEDS: risperiDONE ODT 1 MG TAB PO SCH (08:40)
[2017-04-30] MEDS: DICYCLOMINE HCL 10 MG CAP PO SCH ×2 (08:40→12:12)
[2017-04-30] MEDS: hydrOXYzine HCL 50 MG TAB PO PRN (08:40)
[2017-04-30] MEDS: TOPIRAMATE 25 MG TAB PO SCH (08:40)
[2017-04-30] MEDS: buPROPion HCL 150 MG SUSTAINED RELEASE TAB PO SCH (08:40)
[2017-04-30 08:48] LABS: ANION GAP 9 MEQ/L (5-15); AST (GOT) 122 U/L (15-37); BICARBONATE 28.1 MEQ/L (21.0-32.0); BLOOD UREA NITROGEN 11 MG/DL (7-18); CHLORIDE 101 MEQ/L (98-107); GLOMERULAR FILTRATION RATE 74 ML/MIN (>89); SODIUM (NA) 138 MEQ/L (136-145)
[2017-04-30 08:53] LABS: POTASSIUM 4.7 MEQ/L (3.5-5.1)
--- NOTE | 2017-04-30 12:48 | PD.TTN ---
Patient Problems 1. Discharge planning 2. Medication compliance 3. Knowledge deficit 4. Lack of coping skills Progress Toward Goals Provider Input: Patient is compliant with medications and denies side effects. Patient denies SI/HI AVH currently. Patient complains of medical issues. Psych Therapist Input: Patient is pleasant and cooperative with care. Patient is observed to be in better spirits and is socalizing appropriately with peers on the unit. Occupational Therapist Input: Patient does not attend groups. Tracie Coleman [facility] Apr 30, 2017 12:48
[2017-04-30] MEDS ORDERED: ARIP1TAB7 PO (13:45)
[2017-04-30] MEDS ORDERED: ZOLO100T PO (13:45)
[2017-04-30] MEDS ORDERED: RISP1TAB54 PO (13:45)
[2017-04-30] MEDS ORDERED: TOPA50TA7 PO (13:45)
[2017-04-30] MEDS ORDERED: BUPR150CR PO (13:45)
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
== END 2017-04-30 15:45 | disposition home or self-care (01) | DRG 885 ==
LOC: NEPC 10:29 → NEDA 19:35 → H250 20:10 → H260 04-25 21:21
PROVIDERS: ADMIT Psychiatry & Neurology Psychiatry; ATTEND Psychiatry & Neurology Psychiatry
DX: F31.64 Bipolar disorder, current episode mixed, severe, with psychotic features (principal); Z68.45 Body mass index [BMI] 70 or greater, adult; R45.851 Suicidal ideations; K62.5 Hemorrhage of anus and rectum; E66.01 Morbid (severe) obesity due to excess calories; E78.5 Hyperlipidemia, unspecified; F41.9 Anxiety disorder, unspecified; F90.9 Attention-deficit hyperactivity disorder, unspecified type; G47.33 Obstructive sleep apnea (adult) (pediatric); I10 Essential (primary) hypertension; K21.9 Gastro-esophageal reflux disease without esophagitis; J44.9 Chronic obstructive pulmonary disease, unspecified; K29.70 Gastritis, unspecified, without bleeding; Z62.810 Personal history of physical and sexual abuse in childhood; Z79.899 Other long term (current) drug therapy; Z98.84 Bariatric surgery status
CPT/HCPCS: 71010; 74177; 76705; 80048; 80053; 80061; 80074; 80076; 80307; 81001; 82103; 82104; 82390; 82525; 82728; 83036; 83540; 83550; 83690; 84703; 85025; 85610; 86038; 86255; 87641; 94640; 94664; J7613; Q0163; Q9963; Q9967

== ENCOUNTER 2017-10-26 19:17 | Inpatient (IN) | payer MEDICARE, MEDICAID ==
[~2017-10-26] VITALS: Ht 162.6 cm; Wt 221.3 kg
[~2017-10-26 19:17] MED LIST changes: +ABIL20TA5 PO; -ARIP1TAB7 PO; +BUPR150CR PO; -OMEP20CA2; +OMEP20CA2 PO; +RISP1TAB54 PO; +ZOLO100T PO
[2017-10-26 19:19] VITALS: BP 173/99; PULSE 68; RESP 18; TEMP 98.7; O2SAT 95
--- NOTE | 2017-10-26 19:54 | PD ---
HPI Chief Complaint: Psychiatric Symptoms Time Seen by Provider: 19:48 Travel History International Travel<30 days: No Contact w/Intl Traveler<30days: No Traveled to known affect area: No History of Present Illness HPI 32-year-old female with history of bipolar depression here for evaluation of suicidal ideation and abdominal pain. The patient reports that she has had constant abdominal pain for 4 years. She reports increasing depression and states that she wants to cut her arms as well as cut her abdomen where her abdominal pain is. Her pain is upper and described as sharp/stabbing. History of cholecystectomy. No fevers. She reports constant diarrhea over the last 4 years as well. She is followed by a GI physician for this. No urinary symptoms. No vaginal bleeding or discharge. She did not do anything today to harm herself. PFSH Past Medical History Hx Anticoagulant Therapy: No ADD: Yes ADHD: Yes Arthritis: No Asthma: Yes Autoimmune Disease: Yes (IGG DEF) Blood Disorders: No Bipolar Disorder: Yes Anxiety: Yes Depression: Yes Heart Rhythm Problems: No Cancer: No Cardiovascular Problems: Yes (HTN) High Cholesterol: Yes Chemotherapy: No Chest Pain: No Congestive Heart Failure: No COPD: Yes Cerebrovascular Accident: No Diabetes: No Diminished Hearing: No Endocrine: No Gastrointestinal Disorders: Yes (GERD) GERD: Yes Glaucoma: No Genitourinary: No Headaches: No Hepatitis: No Hiatal Hernia: No Hypertension: Yes Immune Disorder: No Kidney Stones: No Musculoskeletal: No Neurologic: No Psychiatric: Yes (BIPOLAR) Reproductive: No Respiratory: Yes (ASTHMA, ARDS) Integumentary: Yes (PSORIASIS) Migraines: No Myocardial Infarction: No Radiation Therapy: No Renal Failure: No Seizures: No Sickle Cell Disease: No Sleep Apnea: Yes (BIPAP) Thyroid Disease: No Ulcer: No ?: Unknown LMP: irregular cycles : 0 Ectopic : No Ovarian Cysts: No Tubal Ligation: No Past Surgical History Abdominal Surgery: Yes (VERTICAL SLEEVE GASTRECTOMY) AICD: No Arteriovenous Shunt: No Body Medical Devices: NONE Cardiac Surgery: No Ear Surgery: No Endocrine Surgery: No Eye Surgery: Yes (SURGERY ON RIGHT EYE) Genitourinary Surgery: No Gynecologic Surgery: No Hysterectomy: No Insulin Pump: No Joint Replacement: No Oral Surgery: Yes (ADENOIDECTOMY) Pacemaker: No Thoracic Surgery: No Tonsillectomy: Yes Other Surgery: Yes Social History Alcohol Use: No Tobacco Use: No Substance Use: No Allergies-Medications (Allergen,Severity, Reaction): Coded Allergies: adhesive (Unverified Allergy, Severe, RASH, 05/15/17) amoxicillin (Unverified Allergy, Severe, VOMITING, 05/15/17) baclofen (Unverified Allergy, Severe, NAUSEA AND VOMITING, 05/15/17) clarithromycin (Unverified Allergy, Severe, VOMITING, 05/15/17) clavulanic acid (Unverified Allergy, Severe, VOMITING, 05/15/17) latex (Unverified Allergy, Severe, RASH/ITCHING, 05/15/17) methocarbamol (Unverified Allergy, Severe, 05/15/17) shellfish derived (Unverified Allergy, Severe, Hives, 05/15/17) *MDRO Multi-Drug Resistant Organism (Verified Adverse Reaction, Unknown, Cleared - 04/27/17, 04/27/17) Cleared: MRSA screens negative on 04/25/17 & 04/27/17 MRSA (finger wound) - 07/11/11 Reported Meds & Prescriptions Reported Meds & Active Scripts Active Topamax (Topiramate) 50 Mg Tab 50 Mg PO BID Risperdal M-Tab (Risperidone) 1 Mg Tab 1 Mg PO DAILY@08,16 Wellbutrin SR 12 HR (Bupropion HCl) 150 Mg Tab 150 Mg PO BID Reported Hydroxyzine HCl 10 Mg Tab 10 Mg PO DAILY Sertraline (Sertraline HCl) 100 Mg Tab 200 Mg PO HS Omeprazole 20 Mg Cap Singulair (Montelukast Sodium) 10 Mg Tab 10 Mg PO HS Lisinopril 20 Mg Tab 20 Mg PO DAILY Albuterol Neb (Albuterol Sulfate) 2.5 Mg/0.5 Ml Neb 2.5 Mg NEB Q6HR NEB PRN Note: The Albuterol Sulfate Inhalation Solution is concentrated and must be diluted. Read complete instructions carefully before using. Bupropion HCl 100 Mg Tab 300 Mg PO HS Abilify (Aripiprazole) 20 Mg Tab 20 Mg PO DAILY Review of Systems Except as stated in HPI: all other systems reviewed are Neg Physical Exam Narrative GENERAL: Well-developed, well-nourished, overweight, comfortable, no apparent distress, calm. SKIN: Focused skin assessment warm/dry. HEAD: Atraumatic. Normocephalic. EYES: Pupils equal and round. No scleral icterus. No injection or drainage. ENT: Mucous membranes pink and moist. NECK: Trachea midline. No JVD. CARDIOVASCULAR: Regular rate and rhythm. RESPIRATORY: No accessory muscle use. Clear to auscultation. Breath sounds equal bilaterally. GASTROINTESTINAL: Abdomen soft, non-tender, nondistended. Normal bowel sounds. MUSCULOSKELETAL: No obvious deformities. No clubbing. No cyanosis. No edema. NEUROLOGICAL: Awake and alert. No obvious cranial nerve deficits. Motor grossly within normal limits. Normal speech. PSYCHIATRIC: Calm, flat affect, poor eye contact. Data Data Last Documented VS Vital Signs Date Time Temp Pulse Resp B/P (MAP) Pulse Ox O2 Delivery O2 Flow Rate FiO2 10/26/17 19:19 98.7 68 18 173/99 (123) 95 Room Air Orders Orders Complete Blood Count With Diff (10/26/17 19:50) Comprehensive Metabolic Panel (10/26/17 19:50) Thyroid Stimulating Hormone (10/26/17 19:50) Beta Hcg (Quant/Titer) (10/26/17 19:50) Psych Screen (10/26/17 19:50) Drug Screen, Random Urine (10/26/17 19:50) Alcohol (Ethanol) (10/26/17 19:50) Salicylates (Aspirin) (10/26/17 19:50) Tylenol (Acetaminophen) (10/26/17 19:50) Urinalysis - C+S If Indicated (10/26/17 19:51) Labs Laboratory Tests Test 10/26/17 19:55 10/26/17 20:00 White Blood Count 7.1 TH/MM3 Red Blood Count 5.03 MIL/MM3 Hemoglobin 13.9 GM/DL Hematocrit 41.8 % Mean Corpuscular Volume 83.2 FL Mean Corpuscular Hemoglobin 27.6 PG Mean Corpuscular Hemoglobin Concent 33.2 % Red Cell Distribution Width 13.5 % Platelet Count 276 TH/MM3 Mean Platelet Volume 8.0 FL Neutrophils (%) (Auto) 50.9 % Lymphocytes (%) (Auto) 35.3 % Monocytes (%) (Auto) 7.6 % Eosinophils (%) (Auto) 5.4 % Basophils (%) (Auto) 0.8 % Neutrophils # (Auto) 3.6 TH/MM3 Lymphocytes # (Auto) 2.5 TH/MM3 Monocytes # (Auto) 0.5 TH/MM3 Eosinophils # (Auto) 0.4 TH/MM3 Basophils # (Auto) 0.1 TH/MM3 CBC Comment DIFF FINAL Differential Comment Blood Urea Nitrogen 13 MG/DL Creatinine 0.83 MG/DL Random Glucose 95 MG/DL Total Protein 7.5 GM/DL Albumin 3.6 GM/DL Calcium Level 8.9 MG/DL Alkaline Phosphatase 128 U/L Aspartate Amino Transf (AST/SGOT) 90 U/L Alanine Aminotransferase (ALT/SGPT) 99 U/L Total Bilirubin 0.3 MG/DL Sodium Level 141 MEQ/L Potassium Level 4.0 MEQ/L Chloride Level 107 MEQ/L Carbon Dioxide Level 29.7 MEQ/L Anion Gap 4 MEQ/L Estimat Glomerular Filtration Rate 81 ML/MIN Thyroid Stimulating Hormone 3rd Gen 3.280 uIU/ML Human Chorionic Gonadotropin, Quant LESS THAN 1 MIU/ML Salicylates Level LESS THAN 1.7 MG/DL Acetaminophen Level LESS THAN 2.0 MCG/ML Ethyl Alcohol Level LESS THAN 3 MG/DL Urine Color YELLOW Urine Turbidity HAZY Urine pH 5.5 Urine Specific [place] 1.023 Urine Protein TRACE mg/dL Urine Glucose (UA) NEG mg/dL Urine Ketones NEG mg/dL Urine Occult Blood NEG Urine Nitrite NEG Urine Bilirubin NEG Urine Urobilinogen LESS THAN 2.0 MG/DL Urine Leukocyte Esterase TRACE Urine RBC 1 /hpf Urine WBC 2 /hpf Urine Squamous Epithelial Cells 2 /hpf Urine Bacteria OCC /hpf Urine Mucus FEW /lpf Microscopic Urinalysis Comment CULT NOT INDICATED Urine Opiates Screen NEG Urine Barbiturates Screen NEG Urine Amphetamines Screen NEG Urine Benzodiazepines Screen NEG Urine Cocaine Screen NEG Urine Cannabinoids Screen NEG MDM Medical Decision Making Medical Screen Exam Complete: Yes Emergency Medical Condition: Yes Medical Record Reviewed: Yes Differential Diagnosis Depression, suicidal ideation, chronic abdominal pain, acute intra-abdominal/ surgical process unlikely Narrative Course Vital signs reviewed. CBC is unremarkable. CMP shows slight transaminitis with AST 90, ALT 99 which she has had in the past. Beta hCG is negative. Urine drug screen is negative for all drugs tested. UA is not suggestive of UTI. Patient has had abdominal pain for 4 years. There is no tenderness or peritoneal signs on exam today. I do not believe that there is an acute intra- abdominal/surgical process to warrant imaging at this time. She is medically cleared for psychiatric evaluation and disposition by them. Diagnosis Primary Impression: Medical clearance for psychiatric admission Carl Clarke MD Oct 26, 2017 19:54
[2017-10-26] MEDS ORDERED: HYDR-755 PO (20:24)
[2017-10-26 20:28] LABS: BACTERIA, URINE OCC /hpf; BILIRUBIN, URINE NEG (NEG); BLOOD, URINE NEG (NEG); GLUCOSE,URINE NEG (NEG); KETONE, URINE NEG (NEG); MUCUS URINE FEW /lpf (OCC); NITRITE,URINE NEG (NEG); PH, URINE 5.5 (5.0-8.5); SQUAMOUS EPITHELIAL CELL URINE 2 /hpf (0-5); URINE COLOR YELLOW (YELLW/STRAW); URINE LEUKOCYTE ESTERASE TRACE (NEG)
[2017-10-26 20:30] LABS: AUTOMATED NEUTROPHIL # 3.6 TH/MM3 (1.8-7.7); BASOPHIL # 0.1 TH/MM3 (0-0.2); BASOPHIL % 0.8 % (0.0-2.0); EOSINOPHIL # 0.4 TH/MM3 (0-0.4); EOSINOPHIL % 5.4 % (0.0-4.0); HEMATOCRIT 41.8 % (35.0-46.0); HEMOGLOBIN 13.9 GM/DL (11.6-15.3); LYMPH % 35.3 % (9.0-44.0); LYMPHOCYTE # 2.5 TH/MM3 (1.0-4.8); MEAN CELL VOLUME 83.2 FL (80.0-100.0); MEAN CORPUSCULAR HEMOGLOBIN 27.6 PG (27.0-34.0); MEAN CORPUSCULAR HGB CONC 33.2 % (32.0-36.0); MONO % 7.6 % (0.0-8.0); MONOCYTE # 0.5 TH/MM3 (0-0.9); NEUT % 50.9 % (16.0-70.0); PLATELET COUNT 276 TH/MM3 (150-450); RED BLOOD COUNT 5.03 MIL/MM3 (4.00-5.30); RED CELL DISTRIBUTION WIDTH 13.5 % (11.6-17.2); WHITE BLOOD COUNT 7.1 TH/MM3 (4.0-11.0)
[2017-10-26 20:41] LABS: ALBUMIN 3.6 GM/DL (3.4-5.0); ALT (GPT) 99 U/L (10-53); AST (GOT) 90 U/L (15-37); BICARBONATE 29.7 MEQ/L (21.0-32.0); BLOOD UREA NITROGEN 13 MG/DL (7-18); CALCIUM 8.9 MG/DL (8.5-10.1); CHLORIDE 107 MEQ/L (98-107); CREATININE 0.83 MG/DL (0.50-1.00); GLOMERULAR FILTRATION RATE 81 ML/MIN (>89); GLUCOSE,RANDOM 95 MG/DL (74-106); SODIUM (NA) 141 MEQ/L (136-145)
[2017-10-26 20:52] LABS: ALKALINE PHOSPHATASE 128 U/L (45-117); TOTAL BILIRUBIN ADULT 0.3 MG/DL (0.2-1.0); TOTAL PROTEIN 7.5 GM/DL (6.4-8.2)
[2017-10-26 20:56] LABS: ACETAMINOPHEN LESS THAN 2.0 MCG/ML (10.0-30.0)
[2017-10-27] MEDS ORDERED: LOSA25TA PO (01:21)
[2017-10-27] MEDS ORDERED: ABIL30TA5 PO (01:21)
[2017-10-27] MEDS ORDERED: FURO1TAB61 PO (01:25)
[2017-10-27 02:38] VITALS: BP 162/92; PULSE 70; TEMP 98.3; O2SAT 95
[2017-10-27] MEDS ORDERED: MAGNESIUM HYDROXIDE SUSP 30 ML CUP PO PRN (03:45)
[2017-10-27] MEDS ORDERED: ALUMINUM/MAGNESIUM/SIMETH 30 ML CUP PO PRN (03:45)
[2017-10-27] MEDS ORDERED: LORazepam 2 MG/ML VIAL IM PRN (03:45)
[2017-10-27] MEDS: LORazepam 1 MG TAB PO PRN ×2 (04:23→21:36)
[2017-10-27] MEDS: ACETAMINOPHEN 325 MG TAB PO PRN ×2 (04:28→17:55)
[2017-10-27 04:30] VITALS: BP 169/99; PULSE 77; RESP 18; TEMP 98.2; O2SAT 96
[2017-10-27 06:01] VITALS: BP 168/93; PULSE 87; RESP 18; TEMP 98.1; O2SAT 95
--- NOTE | 2017-10-27 08:17 | PD.CONS ---
HPI Service [facility] Consult Requested By Dr Cobb Reason for Consult medical management Primary Care Physician Zay Baeza DO Diagnoses: History of Present Illness 32-year-old female with history of bipolar depression, HTN, IGG deficiency, GERD , Asthma here for evaluation of suicidal ideation and abdominal pain. The patient reports that she has had constant abdominal pain for 4 years. She reports increasing depression and states that she wants to cut her arms as well as cut her abdomen where her abdominal pain is. Her pain is upper and described as sharp/stabbing. History of cholecystectomy. No fevers. She reports constant diarrhea over the last 4 years as well. She is followed by a GI physician for this. No urinary symptoms. No vaginal bleeding or discharge. She did not do anything today to harm herself. Patient says she has diarrhea nonbloody 3-4 times a day. No fever or chills. She also complains of diffuse abdominal cramps. No fever or chills. Able to keep down food. No nausea or vomiting Review of Systems Except as stated in HPI: all other systems reviewed are Neg Past Family Social History Allergies: Coded Allergies: adhesive (Unverified Allergy, Severe, RASH, 05/15/17) amoxicillin (Unverified Allergy, Severe, VOMITING, 05/15/17) baclofen (Unverified Allergy, Severe, NAUSEA AND VOMITING, 05/15/17) clarithromycin (Unverified Allergy, Severe, VOMITING, 05/15/17) clavulanic acid (Unverified Allergy, Severe, VOMITING, 05/15/17) latex (Unverified Allergy, Severe, RASH/ITCHING, 05/15/17) methocarbamol (Unverified Allergy, Severe, 05/15/17) shellfish derived (Unverified Allergy, Severe, Hives, 05/15/17) *MDRO Multi-Drug Resistant Organism (Verified Adverse Reaction, Unknown, Cleared - 04/27/17, 04/27/17) Cleared: MRSA screens negative on 04/25/17 & 04/27/17 MRSA (finger wound) - 07/11/11 Past Medical History Bipolar depression, HTN, IGG deficiency, GERD, Asthma Past Surgical History Vertical sleeve gastrectomy Cholecystectomy Right eye surgery Adenoidectomy Tonsillectomy Reported Medications Reported Meds & Active Scripts Active Topamax (Topiramate) 50 Mg Tab 50 Mg PO BID Wellbutrin SR 12 HR (Bupropion HCl) 150 Mg Tab 150 Mg PO BID Reported Lasix (Furosemide) 80 Mg Tab 80 Mg PO DAILY Losartan (Losartan Potassium) 25 Mg Tab 12.5 Mg PO DAILY Abilify (Aripiprazole) 30 Mg Tab 30 Mg PO DAILY Hydroxyzine HCl 10 Mg Tab 10 Mg PO DAILY Sertraline (Sertraline HCl) 100 Mg Tab 200 Mg PO HS Omeprazole 20 Mg Cap 20 Cap PO HS Singulair (Montelukast Sodium) 10 Mg Tab 10 Mg PO HS Albuterol Neb (Albuterol Sulfate) 2.5 Mg/0.5 Ml Neb 2.5 Mg NEB Q6HR NEB PRN Note: The Albuterol Sulfate Inhalation Solution is concentrated and must be diluted. Read complete instructions carefully before using. Family History Mother with diabetes, heart problems, pacemaker hypertension Father with hypertension, bipolar disorder Social History Denies EtOH use, illicit drug use or tobacco use. Physical Exam Vital Signs Vital Signs Date Time Temp Pulse Resp B/P (MAP) Pulse Ox O2 Delivery O2 Flow Rate FiO2 10/27/17 06:01 98.1 87 18 168/93 (118) 95 10/27/17 04:30 98.2 77 18 169/99 (122) 96 10/27/17 02:38 98.3 70 162/92 (115) 95 10/26/17 19:19 98.7 68 18 173/99 (123) 95 Room Air Physical Exam GENERAL: This is a very pleasant 32-year-old female morbidly obese, well- nourished, well-developed patient, in no apparent distress. SKIN: No rashes, ecchymoses or lesions. Cool and dry. HEAD: Atraumatic. Normocephalic. No temporal or scalp tenderness. EYES: Pupils equal round and reactive. Extraocular motions intact. No scleral icterus. No injection or drainage. ENT: Nose without bleeding, purulent drainage or septal hematoma. Throat without erythema, tonsillar hypertrophy or exudate. Uvula midline. Airway patent. NECK: Trachea midline. No JVD or lymphadenopathy. Supple, nontender, no meningeal signs. CARDIOVASCULAR: Regular rate and rhythm without murmurs, gallops, or rubs. RESPIRATORY: Clear to auscultation. Breath sounds equal bilaterally. No wheezes , rales, or rhonchi. GASTROINTESTINAL: Abdomen soft, obese, mild diffuse tenderness on palpation, nondistended. No hepato-splenomegaly, or palpable masses. No guarding. MUSCULOSKELETAL: Extremities without clubbing, cyanosis, or edema. No joint tenderness, effusion, or edema noted. No calf tenderness. Negative Homans sign bilaterally. NEUROLOGICAL: Awake and alert. Cranial nerves II through XII intact. Motor and sensory grossly within normal limits. Five out of 5 muscle strength in all muscle groups. Normal speech. Laboratory Laboratory Tests Test 10/26/17 19:55 10/26/17 20:00 White Blood Count 7.1 Red Blood Count 5.03 Hemoglobin 13.9 Hematocrit 41.8 Mean Corpuscular Volume 83.2 Mean Corpuscular Hemoglobin 27.6 Mean Corpuscular Hemoglobin Concent 33.2 Red Cell Distribution Width 13.5 Platelet Count 276 Mean Platelet Volume 8.0 Neutrophils (%) (Auto) 50.9 Lymphocytes (%) (Auto) 35.3 Monocytes (%) (Auto) 7.6 Eosinophils (%) (Auto) 5.4 Basophils (%) (Auto) 0.8 Neutrophils # (Auto) 3.6 Lymphocytes # (Auto) 2.5 Monocytes # (Auto) 0.5 Eosinophils # (Auto) 0.4 Basophils # (Auto) 0.1 CBC Comment DIFF FINAL Differential Comment Blood Urea Nitrogen 13 Creatinine 0.83 Random Glucose 95 Total Protein 7.5 Albumin 3.6 Calcium Level 8.9 Alkaline Phosphatase 128 Aspartate Amino Transf (AST/SGOT) 90 Alanine Aminotransferase (ALT/SGPT) 99 Total Bilirubin 0.3 Sodium Level 141 Potassium Level 4.0 Chloride Level 107 Carbon Dioxide Level 29.7 Anion Gap 4 Estimat Glomerular Filtration Rate 81 Thyroid Stimulating Hormone 3rd Gen 3.280 Human Chorionic Gonadotropin, Quant LESS THAN 1 Salicylates Level LESS THAN 1.7 Acetaminophen Level LESS THAN 2.0 Ethyl Alcohol Level LESS THAN 3 Urine Color YELLOW Urine Turbidity HAZY Urine pH 5.5 Urine Specific [place] 1.023 Urine Protein TRACE Urine Glucose (UA) NEG Urine Ketones NEG Urine Occult Blood NEG Urine Nitrite NEG Urine Bilirubin NEG Urine Urobilinogen LESS THAN 2.0 Urine Leukocyte Esterase TRACE Urine RBC 1 Urine WBC 2 Urine Squamous Epithelial Cells 2 Urine Bacteria OCC Urine Mucus FEW Microscopic Urinalysis Comment CULT NOT INDICATED Urine Opiates Screen NEG Urine Barbiturates Screen NEG Urine Amphetamines Screen NEG Urine Benzodiazepines Screen NEG Urine Cocaine Screen NEG Urine Cannabinoids Screen NEG Result Diagram: 10/26/17195410/26/171954 Assessment and Plan Assessment and Plan Depression, suicidal ideation. Management per psych Chronic abdominal pain x 4 years Diarrhea CBC is unremarkable. CMP shows slight transaminitis with AST 90, ALT 99 which she has had in the past , appears at baseline. Beta hCG is negative. Urine drug screen is negative for all drugs tested. UA is not suggestive of UTI. Check for C. difficile Started Lactinex Start dicyclomine when necessary for abdominal cramps. Patient says she follows with Dr. Jorge RYAN as outpatient and had recent colonoscopy and EGD which were normal. She also had an gastric emptying study done as outpatient by Dr. Patel. Patient doesn't improve consider consulting Dr. Jorge RYAN Morbid obesity BMI of 83.7. Diet and exercise. follow-up as outpatient, consider bariatric surgery. HTN Resume losartan. Monitor BP and adjust as need DVT ppx ambulation Discussed Condition With pt, nurse Maddie Villareal MD Oct 27, 2017 08:17
[2017-10-27] MEDS ORDERED: buPROPion HCL 150 MG SUSTAINED RELEASE TAB PO SCH (09:00)
[2017-10-27] MEDS: RESP: ALBUTEROL CONC 2.5 MG/0.5 ML NEB INH PRN (09:02)
[2017-10-27] MEDS: ARIPiprazole 30 MG TAB PO SCH (10:30)
[2017-10-27] MEDS: hydrOXYzine HCL 10 MG TAB PO SCH (10:30)
[2017-10-27] MEDS: TOPIRAMATE 25 MG TAB PO SCH ×2 (10:31→20:46)
--- NOTE | 2017-10-27 12:41 | HHI.HP ---
Provisional Diagnosis Admission Date Oct 27, 2017 at 02:12 [place] I. Bipolar disorder current episode depressed severe without psychosis F 31.5 Certification of Person's Competence To Provide Express and Informed Consent I have personally examined Andree Flynn , a person being served at [facility] on, Oct 27, 2017 12:29. Express and informed consent means consent voluntarily given in writing, by a competent person, after sufficient explanation and disclosure of the subject matter involved to enable the person to make a knowing and willful decision without any element of force, fraud, deceit, duress, or other form of constraint or coercion. This person is 18 years of age or older, is not now known to be incompetent to consent to treatment with a guardian advocate, and does not have a health care surrogate or proxy currently making medical treatment decisions. I have found this person to be one of the following: [xxx] Competent to provide express and informed consent, as defined above, for voluntary admission to this facility and is competent to provide express and informed consent for treatment. He/she has the consistent capacity to make well reasoned, willful, and knowing decisions concerning his or her medical or mental health treatment. The person fully and consistently understands the purpose of the admission for examination/placement and is fully capable of personally exercising all rights [place] Incompetent to provide express and informed consent to voluntary admission, and this is incompetent to provide express and informed consent to treatment. The person must be transferred to involuntary status and a petition for a guardian advocate filed with the Circuit Court. [] Refusing to provide express and informed consent to voluntary admission but is competent to provide express and informed consent for treatment. The person must be discharged or transferred to involuntary status. Form shall be completed within 24 hours of a person's arrival at the receiving facility and filed in the clinical record of each person: 1. Admitted on a voluntary basis 2. Permitted to provide express and informed consent to his/her own treatment 3. Allowed to transfer from involuntary to voluntary status 4. Prior to permitting a person to consent to his or her own treatment after having been previously found incompetent to consent to treatment. History of Present Illness Capacity: Has Capacity Psych Chief Complaint: depression urges to self mutilate HPI Patient is a 32-year-old morbidly obese white female known to me from prior hospitalization in March 2017. Comes here today voluntarily with a history of chronic abdominal pain for 4+ years with multiple examinations and workups that have been negative. The patient appears to started after she had a gallbladder surgery. Urine toxicology negative. At the present time patient sitting quietly in her room nurse Joanna present throughout session. Patient alert origin calm cooperative did remember me from her prior contact. She states she lives with her mother father lala she's had a relationship with for 7 years and her younger sister. She states she has been depressed related to the chronicity of his pain and the inability to treated sufficiently for her purpose. She is also somewhat upset by the lack of care infection by her lala . She is had marked increased urges to cut herself related to some pressure in her head. In the hopes to relieve the abdominal pain. She is also considered cutting on her abdomen related to this. She denies suicidal ideation intent or plan though has some vague ideation. She is unemployed at the present time. The lithium that since being a pleasure are her 2 small dogs. She denies any physical or sexual abuse. Denies an significant mental health issues in the family. Patient does have various specialists in the community that she follows up with including Dr. Patel, she sees Dr. Romulo fountain been a psychiatrist for a number of years. Though she denies seeing a counselor. At the present time patient doesn't meet criteria for a brief inpatient psychiatric hospitalization. We did discuss medications. We will wean patient off of her Wellbutrin cutting the dose in half today and adding Cymbalta 30 mg in the afternoon. Hopeless to be fairly short stay patient to follow-up with Dr. fountain Review of Systems Constitutional: DENIES: Diaphoretic episodes, Fatigue, Fever, Weight gain, Weight loss, Chills, Dizziness, Change in appetite, Night Sweats Endocrine: DENIES: Abnorml menstrual pattern, Heat/cold intolerance, Polydipsia , Polyuria, Polyphagia Eyes: DENIES: Blurred vision, Diplopia, Eye inflammation, Eye pain, Vision loss , Photosensitivity, Double Vision Ears, nose, mouth, throat: DENIES: Tinnitus, Hearing loss, Vertigo, Nasal discharge, Oral lesions, Throat pain, Hoarseness, Ear Pain, Running Nose, Epistaxis, Sinus Pain, Toothache, Odynophagia Respiratory: DENIES: Apneas, Cough, Snoring, Wheezing, Hemoptysis, Sputum production, Shortness of breath Cardiovascular: DENIES: Chest pain, Palpitations, Syncope, Dyspnea on Exertion , PND, Lower Extremity Edema, Orthopnea, Claudication Gastrointestinal: COMPLAINS OF: Abdominal pain, DENIES: Black stools, Bloody stools, Constipation, Diarrhea, Nausea, Vomiting, Difficulty Swallowing, Anorexia Genitourinary: DENIES: Abnormal vaginal bleeding, Dysmenorrhea, Dyspareunia, Sexual dysfunction, Urinary frequency, Urinary incontinence, Urgency, Hematuria , Dysuria, Nocturia, Vaginal discharge Musculoskeletal: DENIES: Joint pain, Muscle aches, Stiffness, Joint Swelling, Back pain, Neck pain Integumentary: DENIES: Abnormal pigmentation, Pruritus, Rash, Nail changes, Breast masses, Breast skin changes, Nipple discharge Hematologic/lymphatic: DENIES: Bruising, Lymphadenopathy Immunologic/allergic: DENIES: Eczema, Urticaria Neurologic: DENIES: Abnormal gait, Headache, Localized weakness, Paresthesias, Seizures, Speech Problems, Tremor, Poor Balance Psychiatric: COMPLAINS OF: Mood changes, Depression, Suicidal Ideation (denies been having increasing urges to self mutilate) Past Psych History Psychological trauma history Patient denies Violence risk - others (6 mos) Low Violence risk - self (6 mos) high Substance Abuse History Drugs/Alcohol past 12 months Denies Past Family Social History Coded Allergies: adhesive (Unverified Allergy, Severe, RASH, 05/15/17) amoxicillin (Unverified Allergy, Severe, VOMITING, 05/15/17) baclofen (Unverified Allergy, Severe, NAUSEA AND VOMITING, 05/15/17) clarithromycin (Unverified Allergy, Severe, VOMITING, 05/15/17) clavulanic acid (Unverified Allergy, Severe, VOMITING, 05/15/17) latex (Unverified Allergy, Severe, RASH/ITCHING, 05/15/17) methocarbamol (Unverified Allergy, Severe, 05/15/17) shellfish derived (Unverified Allergy, Severe, Hives, 05/15/17) *MDRO Multi-Drug Resistant Organism (Verified Adverse Reaction, Unknown, Cleared - 04/27/17, 04/27/17) Cleared: MRSA screens negative on 04/25/17 & 04/27/17 MRSA (finger wound) - 07/11/11 Active Scripts Topiramate (Topamax) 50 Mg Tab, 50 MG PO BID for health, #60 TAB 0 Refills Prov:Nain Burgess MD 04/30/17 Bupropion HCl ER 12 HR (Wellbutrin SR 12 HR) 150 Mg Tab, 150 MG PO BID for health, #60 TAB 0 Refills Prov:Nain Burgess MD 04/30/17 Reported Medications Furosemide (Lasix) 80 Mg Tab, 80 MG PO DAILY, #30 TAB 0 Refills 10/27/17 Losartan (Losartan) 25 Mg Tab, 12.5 MG PO DAILY for Blood Pressure Management, # 15 TAB 0 Refills 10/27/17 Aripiprazole (Abilify) 30 Mg Tab, 30 MG PO DAILY, #30 TAB 0 Refills 10/27/17 Hydroxyzine HCl (Hydroxyzine HCl) 10 Mg Tab, 10 MG PO DAILY, TAB 0 Refills 10/26/17 Sertraline (Sertraline) 100 Mg Tab, 200 MG PO HS, #30 TAB 0 Refills 03/28/17 Omeprazole (Omeprazole) 20 Mg Cap, 20 CAP PO HS for Heartburn Management 03/28/17 Montelukast (Singulair) 10 Mg Tab, 10 MG PO HS, #30 TAB 0 Refills 03/28/17 Albuterol Neb (Albuterol Neb) 2.5 Mg/0.5 Ml Neb, 2.5 MG NEB Q6HR NEB Y for WHEEZING, BOX Note: The Albuterol Sulfate Inhalation Solution is concentrated and must be diluted. Read complete instructions carefully before using. 03/28/17 Discontinued Reported Medications Lisinopril (Lisinopril) 20 Mg Tab, 20 MG PO DAILY, #30 TAB 0 Refills 03/28/17 Bupropion HCl (Bupropion HCl) 100 Mg Tab, 300 MG PO HS for Control Depression, TAB 0 Refills 03/28/17 Aripiprazole (Abilify) 20 Mg Tab, 20 MG PO DAILY, #30 TAB 0 Refills 03/28/17 Topiramate (Topamax) 50 Mg Tab, 50 MG PO BID for Control Seizures, #60 TAB 0 Refills 03/28/17 Discontinued Scripts Risperidone Odt (Risperdal M-Tab) 1 Mg Tab, 1 MG PO DAILY@08,16 for health, #60 TAB 0 Refills Prov:Nain Burgess MD 04/30/17 Sertraline (Zoloft) 100 Mg Tab, 200 MG PO 2 hs for health, #60 TAB 0 Refills Prov:Nain Burgess MD 04/30/17 Aripiprazole (Abilify) 20 Mg Tab, 20 MG PO DAILY for health, #30 TAB 0 Refills Prov:Nain Burgess MD 04/30/17 Current Medications Medications (Trade) Dose Ordered Sig/Minesh Route Start Time Stop Time Status Last Admin (Ativan) 1 mg Q6H PRN PO 10/27/17 03:45 10/27/17 04:23 (Ativan Inj) 1 mg Q6H PRN IM 10/27/17 03:45 (Tylenol) 650 mg Q4H PRN PO 10/27/17 03:45 10/27/17 04:28 (Milk Of Magnesia Liq) 30 ml DAILY PRN PO 10/27/17 03:45 (Mag-Al Plus Susp Liq) 30 ml Q6H PRN PO 10/27/17 03:45 (Albuterol Concentrated Neb) 2.5 mg Q6HR NEB PRN INH 10/27/17 03:45 10/27/17 09:02 (Singulair) 10 mg HS PO 10/27/17 21:00 (Protonix) 20 mg HS PO 10/27/17 21:00 (Zoloft) 200 mg HS PO 10/27/17 21:00 (Wellbutrin Sr) 150 mg BID PO 10/27/17 09:00 10/27/17 10:30 (Topamax) 50 mg BID PO 10/27/17 09:00 10/27/17 10:31 (Atarax) 10 mg DAILY PO 10/27/17 09:00 10/27/17 10:30 (Abilify) 30 mg DAILY PO 10/27/17 09:00 10/27/17 10:30 (Lactinex) 1 tab TID PO 10/27/17 13:00 (Bentyl) 20 mg QID PRN PO 10/27/17 11:15 Family Psych History Denies Social History Patient lives with parents and younger sister and fianc Patient's Strengths (min. 2) Patient verbal label axis health care Physical Exam Patient medically cleared ED, patient sitting quietly on the edge of her bed she is in no acute distress sitting calmly there she is in no respiratory distress. She does not appear to be in abdominal pain though she states that the abdominal pain is present and severe. Patient moves all 4 extremities without difficulty Vital Signs Vital Signs Date Time Temp Pulse Resp B/P (MAP) Pulse Ox O2 Delivery O2 Flow Rate FiO2 10/27/17 06:01 98.1 87 18 168/93 (118) 95 10/26/17 19:19 Room Air Lab Results Test 10/26/17 19:55 10/26/17 20:00 White Blood Count 7.1 TH/MM3 Red Blood Count 5.03 MIL/MM3 Hemoglobin 13.9 GM/DL Hematocrit 41.8 % Mean Corpuscular Volume 83.2 FL Mean Corpuscular Hemoglobin 27.6 PG Mean Corpuscular Hemoglobin Concent 33.2 % Red Cell Distribution Width 13.5 % Platelet Count 276 TH/MM3 Mean Platelet Volume 8.0 FL Neutrophils (%) (Auto) 50.9 % Lymphocytes (%) (Auto) 35.3 % Monocytes (%) (Auto) 7.6 % Eosinophils (%) (Auto) 5.4 % Basophils (%) (Auto) 0.8 % Neutrophils # (Auto) 3.6 TH/MM3 Lymphocytes # (Auto) 2.5 TH/MM3 Monocytes # (Auto) 0.5 TH/MM3 Eosinophils # (Auto) 0.4 TH/MM3 Basophils # (Auto) 0.1 TH/MM3 CBC Comment DIFF FINAL Differential Comment Blood Urea Nitrogen 13 MG/DL Creatinine 0.83 MG/DL Random Glucose 95 MG/DL Total Protein 7.5 GM/DL Albumin 3.6 GM/DL Calcium Level 8.9 MG/DL Alkaline Phosphatase 128 U/L Aspartate Amino Transf (AST/SGOT) 90 U/L Alanine Aminotransferase (ALT/SGPT) 99 U/L Total Bilirubin 0.3 MG/DL Sodium Level 141 MEQ/L Potassium Level 4.0 MEQ/L Chloride Level 107 MEQ/L Carbon Dioxide Level 29.7 MEQ/L Anion Gap 4 MEQ/L Estimat Glomerular Filtration Rate 81 ML/MIN Thyroid Stimulating Hormone 3rd Gen 3.280 uIU/ML Human Chorionic Gonadotropin, Quant LESS THAN 1 MIU/ML Salicylates Level LESS THAN 1.7 MG/DL Acetaminophen Level LESS THAN 2.0 MCG/ML Ethyl Alcohol Level LESS THAN 3 MG/DL Urine Color YELLOW Urine Turbidity HAZY Urine pH 5.5 Urine Specific [place] 1.023 Urine Protein TRACE mg/dL Urine Glucose (UA) NEG mg/dL Urine Ketones NEG mg/dL Urine Occult Blood NEG Urine Nitrite NEG Urine Bilirubin NEG Urine Urobilinogen LESS THAN 2.0 MG/DL Urine Leukocyte Esterase TRACE Urine RBC 1 /hpf Urine WBC 2 /hpf Urine Squamous Epithelial Cells 2 /hpf Urine Bacteria OCC /hpf Urine Mucus FEW /lpf Microscopic Urinalysis Comment CULT NOT INDICATED Urine Opiates Screen NEG Urine Barbiturates Screen NEG Urine Amphetamines Screen NEG Urine Benzodiazepines Screen NEG Urine Cocaine Screen NEG Urine Cannabinoids Screen NEG Mental Status Examination Appearance: Appropriate Consciousness: Alert Orientation: x4 Motor Activity: Normal gait Speech: Unremarkable Language: Adequate Fund of Knowledge: Adequate Attention and Concentration: Adequate Memory: Unremarkable Mood: Sad, Anxious (mildly) Affect: Other (good range and intensity) Thought Process & Associations: Intact Thought Content: Appropriate Hallucination Type: None Delusion Type: None Suicidal Ideation: No Suicidal Plan: No Suicidal Intention: No Homicidal Ideation: No Homicidal Plan: No Homicidal Intention: No Insight: Fair Judgment: Impulsive Assessment & Plan Problem List: (1) Bipolar disorder, curr episode depressed, severe, w/psychotic features ICD Codes: F31.5 - Bipolar disorder, current episode depressed, severe, with psychotic features Status: Chronic Assessment & Plan Estimated LOS: days this time patient meets criteria for involuntary psychiatric hospitalization observation assessment patient's safety and to adjust medications. See medication adjustments above will also hospitalist consult with us. And had a dietary consult Discharge Planning To return home with family Request HC Surrog/Guard Advoc?: Nain Tidwell MD Oct 27, 2017 12:41
[2017-10-27] MEDS: LACTOBACILLUS ACIDOPHILUS TAB PO SCH ×2 (14:05→17:53)
[2017-10-27] MEDS: DULoxetine HCl DR 30 MG CAP PO SCH (16:15)
[2017-10-27 16:44] VITALS: BP 152/71; PULSE 73; RESP 18; TEMP 98.3; O2SAT 92
[2017-10-27] MEDS: PANTOPRAZOLE SOD 20 MG DELAYED RELEASE TAB PO SCH (20:46)
[2017-10-27] MEDS: MONTELUKAST SODIUM 10 MG TAB PO SCH (20:46)
[2017-10-27] MEDS: SERTRALINE HCL 100 MG TAB PO SCH (20:46)
[2017-10-27] MEDS: DICYCLOMINE HCL 20 MG TAB PO PRN (20:46)
[2017-10-28 06:28] VITALS: BP 197/86; PULSE 76; RESP 18; TEMP 98; O2SAT 92
[2017-10-28 06:36] VITALS: BP 148/85
--- NOTE | 2017-10-28 07:47 | HHI.PR ---
Subjective Remarks Patient in nad. Says diarrhea resolved. Still with abd cramps improved. Patient is eatign small portions of meals and more often and is improving. No fever or chills.No n/v/d/c. Objective Vitals Vital Signs Date Time Temp Pulse Resp B/P (MAP) Pulse Ox O2 Delivery O2 Flow Rate FiO2 10/28/17 06:36 148/85 (106) 10/28/17 06:28 98.0 76 18 197/86 (123) 92 10/27/17 16:44 98.3 73 18 152/71 (98) 92 Result Diagram: 10/26/17195410/26/171954 Objective Remarks GENERAL: This is a very pleasant 32-year-old female morbidly obese, well- nourished, well-developed patient, in no apparent distress. CARDIOVASCULAR: Regular rate and rhythm without murmurs, gallops, or rubs. RESPIRATORY: Clear to auscultation. Breath sounds equal bilaterally. No wheezes , rales, or rhonchi. GASTROINTESTINAL: Abdomen soft, obese, mild diffuse tenderness on palpation, nondistended. No hepato-splenomegaly, or palpable masses. No guarding. MUSCULOSKELETAL: Extremities without clubbing, cyanosis, or edema. No joint tenderness, effusion, or edema noted. No calf tenderness. Negative Homans sign bilaterally. NEUROLOGICAL: Awake and alert. Cranial nerves II through XII intact. Motor and sensory grossly within normal limits. Five out of 5 muscle strength in all muscle groups. Normal speech. A/P Assessment and Plan Depression, suicidal ideation. Management per psych Chronic abdominal pain x 4 years Diarrhea, resolved CBC is unremarkable. CMP shows slight transaminitis with AST 90, ALT 99 which she has had in the past , appears at baseline. Beta hCG is negative. Urine drug screen is negative for all drugs tested. UA is not suggestive of UTI. Check for C. difficile if still diarrhea Started Lactinex Start dicyclomine when necessary for abdominal cramps. Patient says she follows with Dr. Jorge RYAN as outpatient and had recent colonoscopy and EGD which were normal. She also had an gastric emptying study done as outpatient by Dr. Patel. Patient doesn't improve consider consulting Dr. Jorge RYAN Morbid obesity BMI of 83.7. Diet and exercise. follow-up as outpatient, consider bariatric surgery. HTN Resume losartan. Monitor BP and adjust as need DVT ppx ambulation Discussed Condition With pt, nurse Maddie Villareal MD Oct 28, 2017 07:47
[2017-10-28] MEDS: RESP: ALBUTEROL CONC 2.5 MG/0.5 ML NEB INH PRN ×2 (09:35→21:01)
[2017-10-28] MEDS: hydrOXYzine HCL 10 MG TAB PO SCH (10:11)
[2017-10-28] MEDS: ARIPiprazole 30 MG TAB PO SCH (10:11)
[2017-10-28] MEDS: buPROPion HCL 150 MG SUSTAINED RELEASE TAB PO SCH (10:12)
[2017-10-28] MEDS: LACTOBACILLUS ACIDOPHILUS TAB PO SCH ×3 (10:12→18:28)
[2017-10-28] MEDS: TOPIRAMATE 25 MG TAB PO SCH ×2 (10:13→20:35)
--- NOTE | 2017-10-28 14:58 | HHI.PYPN ---
Subjective Chief Complaint: depression urges to self mutilate Remarks Pt seen and discussed with staff. She remains depressed and dysphoric. She reports that she continues to have urges to cut out her stomach. She is malodorous with poor hygiene. She has been pacing halls. She is compliant with medications and denies side effects. Mental Status Examination Appearance: Appropriate Consciousness: Alert Orientation: x4 Motor Activity: Normal gait Speech: Unremarkable Language: Adequate Fund of Knowledge: Adequate Attention and Concentration: Adequate Memory: Unremarkable Mood: Sad Affect: Sad Thought Process & Associations: Intact Thought Content: Appropriate Hallucination Type: None Delusion Type: None Suicidal Ideation: No Suicidal Plan: No Suicidal Intention: No Homicidal Ideation: No Homicidal Plan: No Homicidal Intention: No Insight: Fair Judgment: Impulsive Results Labs Test 10/28/17 09:30 Vitals/IOs Vital Signs Date Time Temp Pulse Resp B/P (MAP) Pulse Ox O2 Delivery O2 Flow Rate FiO2 10/28/17 06:36 148/85 (106) 10/28/17 06:28 98.0 76 18 92 10/26/17 19:19 Room Air Assessment & Plan Problem List: (1) Bipolar disorder, curr episode depressed, severe, w/psychotic features ICD Codes: F31.5 - Bipolar disorder, current episode depressed, severe, with psychotic features Status: Chronic Assessment & Plan Continue current tx plan. Estimated LOS: days Justification for Cont. Inpt. impairments in safety Request HC Surrog/Guard Advoc?: Rosa Maria Tapia MD Oct 28, 2017 14:58
[2017-10-28] MEDS: LORazepam 1 MG TAB PO PRN (16:10)
[2017-10-28] MEDS: DULoxetine HCl DR 30 MG CAP PO SCH (16:10)
[2017-10-28] MEDS: LOSARTAN 25 MG TAB PO SCH (17:12)
[2017-10-28] MEDS: SERTRALINE HCL 100 MG TAB PO SCH (20:34)
[2017-10-28] MEDS: MONTELUKAST SODIUM 10 MG TAB PO SCH (20:34)
[2017-10-28] MEDS: PANTOPRAZOLE SOD 20 MG DELAYED RELEASE TAB PO SCH (20:35)
[2017-10-29 05:23] VITALS: BP 111/65; PULSE 72; RESP 18; TEMP 97.1; O2SAT 96
[2017-10-29] MEDS: buPROPion HCL 150 MG SUSTAINED RELEASE TAB PO SCH (08:14)
[2017-10-29] MEDS: ARIPiprazole 30 MG TAB PO SCH (08:14)
[2017-10-29] MEDS: LACTOBACILLUS ACIDOPHILUS TAB PO SCH ×3 (08:14→17:06)
[2017-10-29] MEDS: TOPIRAMATE 25 MG TAB PO SCH ×2 (08:15→21:27)
[2017-10-29] MEDS: LOSARTAN 25 MG TAB PO SCH (08:15)
[2017-10-29] MEDS: hydrOXYzine HCL 10 MG TAB PO SCH (08:15)
[2017-10-29] MEDS: DICYCLOMINE HCL 20 MG TAB PO PRN (08:18)
[2017-10-29] MEDS: ONDANSETRON ODT 4 MG TAB PO PRN (12:28)
--- NOTE | 2017-10-29 12:54 | HHI.PR ---
Subjective Remarks PATIENT HAD NAUSEA AND ABDOMINAL PAIN- IMPROVED WITH ZOFRAN WILL CONTINUE TO MONITOR ONE MORE DAY MAY NEED GI IN FUTURE PATIENT STILL EATING ALL HER MEALS HAD BOWEL MOVEMENT TODAY Objective Vitals Vital Signs Date Time Temp Pulse Resp B/P (MAP) Pulse Ox O2 Delivery O2 Flow Rate FiO2 10/29/17 05:23 97.1 72 18 111/65 (80) 96 Result Diagram: 10/26/17195410/26/171954 Other Results Laboratory Tests Test 10/26/17 19:55 10/26/17 20:00 10/28/17 09:30 White Blood Count 7.1 TH/MM3 Red Blood Count 5.03 MIL/MM3 Hemoglobin 13.9 GM/DL Hematocrit 41.8 % Mean Corpuscular Volume 83.2 FL Mean Corpuscular Hemoglobin 27.6 PG Mean Corpuscular Hemoglobin Concent 33.2 % Red Cell Distribution Width 13.5 % Platelet Count 276 TH/MM3 Mean Platelet Volume 8.0 FL Neutrophils (%) (Auto) 50.9 % Lymphocytes (%) (Auto) 35.3 % Monocytes (%) (Auto) 7.6 % Eosinophils (%) (Auto) 5.4 % Basophils (%) (Auto) 0.8 % Neutrophils # (Auto) 3.6 TH/MM3 Lymphocytes # (Auto) 2.5 TH/MM3 Monocytes # (Auto) 0.5 TH/MM3 Eosinophils # (Auto) 0.4 TH/MM3 Basophils # (Auto) 0.1 TH/MM3 CBC Comment DIFF FINAL Differential Comment Blood Urea Nitrogen 13 MG/DL Creatinine 0.83 MG/DL Random Glucose 95 MG/DL Total Protein 7.5 GM/DL Albumin 3.6 GM/DL Calcium Level 8.9 MG/DL Alkaline Phosphatase 128 U/L Aspartate Amino Transf (AST/SGOT) 90 U/L Alanine Aminotransferase (ALT/SGPT) 99 U/L Total Bilirubin 0.3 MG/DL Sodium Level 141 MEQ/L Potassium Level 4.0 MEQ/L Chloride Level 107 MEQ/L Carbon Dioxide Level 29.7 MEQ/L Anion Gap 4 MEQ/L Estimat Glomerular Filtration Rate 81 ML/MIN Thyroid Stimulating Hormone 3rd Gen 3.280 uIU/ML Human Chorionic Gonadotropin, Quant LESS THAN 1 MIU/ML Salicylates Level LESS THAN 1.7 MG/DL Acetaminophen Level LESS THAN 2.0 MCG/ML Ethyl Alcohol Level LESS THAN 3 MG/DL Urine Color YELLOW Urine Turbidity HAZY Urine pH 5.5 Urine Specific [place] 1.023 Urine Protein TRACE mg/dL Urine Glucose (UA) NEG mg/dL Urine Ketones NEG mg/dL Urine Occult Blood NEG Urine Nitrite NEG Urine Bilirubin NEG Urine Urobilinogen LESS THAN 2.0 MG/DL Urine Leukocyte Esterase TRACE Urine RBC 1 /hpf Urine WBC 2 /hpf Urine Squamous Epithelial Cells 2 /hpf Urine Bacteria OCC /hpf Urine Mucus FEW /lpf Microscopic Urinalysis Comment CULT NOT INDICATED Urine Opiates Screen NEG Urine Barbiturates Screen NEG Urine Amphetamines Screen NEG Urine Benzodiazepines Screen NEG Urine Cocaine Screen NEG Urine Cannabinoids Screen NEG Objective Remarks GENERAL: 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 HEAD: Atraumatic. Normocephalic. EYES: Pupils equal and round. No scleral icterus. No injection or drainage. EOMI ENT: No nasal bleeding or discharge. Mucous membranes pink and moist. TONGUE MIDLINE NECK: Trachea midline. No JVD. SUPPLE CARDIOVASCULAR: Regular rate and rhythm. S1, S2 NO S3 OR S4 RESPIRATORY: No accessory muscle use. Clear to auscultation. Breath sounds equal bilaterally. GASTROINTESTINAL: Abdomen soft, non-tender, nondistended. Hepatic and splenic margins not palpable. SUPER MORBIDLY OBESE MUSCULOSKELETAL: Extremities without clubbing, cyanosis, or edema. No obvious deformities. NEUROLOGICAL: Awake and alert. No obvious cranial nerve deficits. Motor grossly within normal limits. Five out of 5 muscle strength in the arms and legs. Normal speech. PSYCHIATRIC: INAppropriate mood and affect; insight and judgment ABnormal. Medications and IVs Current Medications Lorazepam (Ativan) 1 mg Q6H PRN PO MODERATE TO SEVERE ANXIETY Last administered on 10/28/17at 16:10; Start 10/27/17 at 03:45 Lorazepam (Ativan Inj) 1 mg Q6H PRN IM MODERATE TO SEVERE ANXIETY; Start at 03:45 Acetaminophen (Tylenol) 650 mg Q4H PRN PO Pain 1-5 or Temp >101F Last administered on 10/27/17at 17:55; Start 10/27/17 at 03:45 Magnesium Hydroxide (Milk Of Magnesia Liq) 30 ml DAILY PRN PO CONSTIPATION; Start 10/27/17 at 03:45 Al Hydrox/Mg Hydrox/Simethicone (Mag-Al Plus Susp Liq) 30 ml Q6H PRN PO DYSPEPSIA Last administered on 10/29/17at 11:40; Start 10/27/17 at 03:45 Albuterol Sulfate (Albuterol Concentrated Neb) 2.5 mg Q6HR NEB PRN INH WHEEZING Last administered on 10/28/17at 21:01; Start 10/27/17 at 03:45 Montelukast Sodium (Singulair) 10 mg HS PO Last administered on 10/28/17at 20:34 ; Start 10/27/17 at 21:00 Pantoprazole Sodium (Protonix) 20 mg HS PO Last administered on 10/28/17at 20:35 ; Start 10/27/17 at 21:00 Sertraline HCl (Zoloft) 200 mg HS PO Last administered on 10/28/17 20:34; Start 10/27/17 at 21:00 Bupropion HCl (Wellbutrin Sr) 150 mg BID PO Last administered on 10/27/17at 10: 30; Start 10/27/17 at 09:00; Stop 10/27/17 at 12:27; Status DC Topiramate (Topamax) 50 mg BID PO Last administered on 10/29/17 08:15; Start 10/27/17 at 09:00 Hydroxyzine HCl (Atarax) 10 mg DAILY PO Last administered on 10/29/17 08:15; Start 10/27/17 at 09:00 Aripiprazole (Abilify) 30 mg DAILY PO Last administered on 10/29/17 08:14; Start 10/27/17 at 09:00 Lactobacillus Acidophilus (Lactinex) 1 tab TID PO Last administered on at 12:28; Start 10/27/17 at 13:00 Dicyclomine HCl (Bentyl) 20 mg QID PRN PO abd cramps Last administered on 10/29 08:18; Start 10/27/17 at 11:15 Bupropion HCl (Wellbutrin Sr) 150 mg DAILY PO Last administered on 10/29/17 08 :14; Start 10/28/17 at 09:00 Duloxetine HCl (Cymbalta Dr) 30 mg DAILY@1600 PO Last administered on at 16:10; Start 10/27/17 at 16:00 Losartan Potassium (Cozaar) 25 mg DAILY PO Last administered on 10/29/17at 08:15 ; Start 10/28/17 at 16:45 Ondansetron HCl (Zofran Odt) 4 mg Q6H PRN PO NAUSEA OR VOMITING Last administered on 10/29/17at 12:28; Start 10/29/17 at 12:00 A/P Assessment and Plan Depression, suicidal ideation. Management per psych Chronic abdominal pain x 4 years Diarrhea, resolved CBC is unremarkable. CMP shows slight transaminitis with AST 90, ALT 99 which she has had in the past , appears at baseline. Beta hCG is negative. Urine drug screen is negative for all drugs tested. UA is not suggestive of UTI. Check for C. difficile if still diarrhea Started Lactinex Start dicyclomine when necessary for abdominal cramps. Patient says she follows with Dr. Jorge RYAN as outpatient and had recent colonoscopy and EGD which were normal. She also had an gastric emptying study done as outpatient by Dr. Patel. Patient doesn't improve consider consulting Dr. Jorge RYAN Morbid obesity BMI of 83.7. Diet and exercise. follow-up as outpatient, consider bariatric surgery. HTN Resume losartan. Monitor BP and adjust as need DVT ppx ambulation PATIENT DENIES CONSTIPATION- HAD BM TODAY STILL TOLERATING ALL OF HER DIET Discharge Planning PENDING PSYCHIATRIC CLEARANCE Anival Addison DO Oct 29, 2017 12:54
[2017-10-29 14:55] LABS: ALBUMIN 3.4 GM/DL (3.4-5.0); AST (GOT) 75 U/L (15-37); BICARBONATE 30.9 MEQ/L (21.0-32.0); BLOOD UREA NITROGEN 13 MG/DL (7-18); CHLORIDE 106 MEQ/L (98-107); CREATININE 0.69 MG/DL (0.50-1.00); GLOMERULAR FILTRATION RATE 100 ML/MIN (>89); GLUCOSE,RANDOM 99 MG/DL (74-106); SODIUM (NA) 141 MEQ/L (136-145)
[2017-10-29 14:57] LABS: ALT (GPT) 83 U/L (10-53)
[2017-10-29 14:59] LABS: ALKALINE PHOSPHATASE 115 U/L (45-117); TOTAL BILIRUBIN ADULT 0.3 MG/DL (0.2-1.0)
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
[2017-10-29 15:47] VITALS: BP 194/86; PULSE 73; RESP 15; TEMP 98.1; O2SAT 90
[2017-10-29] MEDS: LORazepam 1 MG TAB PO PRN (16:10)
[2017-10-29] MEDS: DULoxetine HCl DR 30 MG CAP PO SCH (16:17)
[2017-10-29] MEDS: ACETAMINOPHEN 325 MG TAB PO PRN ×2 (16:38→21:27)
[2017-10-29] MEDS ORDERED: cloNIDine HCL 0.1 MG TAB PO PRN (17:00)
[2017-10-29] MEDS: FUROSEMIDE 40 MG TAB PO SCH (17:06)
[2017-10-29 18:00] VITALS: BP 194/86; PULSE 73; RESP 15; TEMP 98.1; O2SAT 90
[2017-10-29] MEDS: MONTELUKAST SODIUM 10 MG TAB PO SCH (21:27)
[2017-10-29] MEDS: PANTOPRAZOLE SOD 20 MG DELAYED RELEASE TAB PO SCH (21:27)
[2017-10-29] MEDS: SERTRALINE HCL 100 MG TAB PO SCH (21:27)
[2017-10-30 05:51] VITALS: BP 144/68; PULSE 74; RESP 17; TEMP 97.5; O2SAT 92
[2017-10-30 07:29] LABS: HEMATOCRIT 40.7 % (35.0-46.0); HEMOGLOBIN 13.5 GM/DL (11.6-15.3); MEAN CELL VOLUME 83.3 FL (80.0-100.0); MEAN CORPUSCULAR HEMOGLOBIN 27.7 PG (27.0-34.0); MEAN CORPUSCULAR HGB CONC 33.2 % (32.0-36.0); RED BLOOD COUNT 4.89 MIL/MM3 (4.00-5.30); WHITE BLOOD COUNT 5.9 TH/MM3 (4.0-11.0)
[2017-10-30 07:30] LABS: AUTOMATED NEUTROPHIL # 2.7 TH/MM3 (1.8-7.7); BASOPHIL # 0.1 TH/MM3 (0-0.2); BASOPHIL % 1.1 % (0.0-2.0); EOSINOPHIL # 0.4 TH/MM3 (0-0.4); EOSINOPHIL % 6.3 % (0.0-4.0); LYMPH % 39.4 % (9.0-44.0); LYMPHOCYTE # 2.3 TH/MM3 (1.0-4.8); MONO % 6.7 % (0.0-8.0); MONOCYTE # 0.4 TH/MM3 (0-0.9); NEUT % 46.5 % (16.0-70.0); PLATELET COUNT 256 TH/MM3 (150-450); RED CELL DISTRIBUTION WIDTH 13.6 % (11.6-17.2)
[2017-10-30 07:59] LABS: ALBUMIN 3.4 GM/DL (3.4-5.0); ALT (GPT) 81 U/L (10-53); AST (GOT) 71 U/L (15-37); BICARBONATE 32.8 MEQ/L (21.0-32.0); BLOOD UREA NITROGEN 14 MG/DL (7-18); CALCIUM 8.7 MG/DL (8.5-10.1); CHLORIDE 104 MEQ/L (98-107); CREATININE 0.67 MG/DL (0.50-1.00); GLOMERULAR FILTRATION RATE 103 ML/MIN (>89); GLUCOSE,RANDOM 90 MG/DL (74-106); MAGNESIUM 2.1 MG/DL (1.5-2.5); PHOSPHORUS 4.5 MG/DL (2.5-4.9); SODIUM (NA) 143 MEQ/L (136-145)
[2017-10-30] MEDS: hydrOXYzine HCL 10 MG TAB PO SCH (08:02)
[2017-10-30] MEDS: ARIPiprazole 30 MG TAB PO SCH (08:02)
[2017-10-30] MEDS: LOSARTAN 25 MG TAB PO SCH (08:02)
[2017-10-30] MEDS: LACTOBACILLUS ACIDOPHILUS TAB PO SCH ×3 (08:02→17:01)
[2017-10-30] MEDS: FUROSEMIDE 40 MG TAB PO SCH ×2 (08:03→17:01)
[2017-10-30] MEDS: buPROPion HCL 150 MG SUSTAINED RELEASE TAB PO SCH (08:03)
[2017-10-30] MEDS: TOPIRAMATE 25 MG TAB PO SCH ×2 (08:03→21:00)
[2017-10-30 08:07] LABS: ALKALINE PHOSPHATASE 113 U/L (45-117); FREE T4 0.99 NG/DL (0.76-1.46); TOTAL BILIRUBIN ADULT 0.3 MG/DL (0.2-1.0); TOTAL PROTEIN 7.1 GM/DL (6.4-8.2)
[2017-10-30] MEDS: DICYCLOMINE HCL 20 MG TAB PO PRN ×3 (08:11→21:21)
[2017-10-30] MEDS: ACETAMINOPHEN 325 MG TAB PO PRN ×3 (08:11→21:22)
[2017-10-30] MEDS: RESP: ALBUTEROL CONC 2.5 MG/0.5 ML NEB INH PRN (12:30)
--- NOTE | 2017-10-30 13:56 | HHI.PR ---
Subjective Remarks Follow up on patient with abdominal pain, N/V. Patient seen and examined. Patient continues to complain of severe lower abdominal pain after eating. Reports 2 episodes of nonbloody vomiting yesterday. She states she was barely able to eat any lunch due to the pain. She is moving her bowels and reports normal BM yesterday. She denies any diarrhea. She denies any dark/black/tarry stools. She denies any urinary complaints. She denies any fever or chills. Objective Vitals Vital Signs Date Time Temp Pulse Resp B/P (MAP) Pulse Ox O2 Delivery O2 Flow Rate FiO2 10/30/17 05:51 97.5 74 17 144/68 (93) 92 10/29/17 18:00 98.1 73 15 194/86 (122) 90 10/29/17 15:47 98.1 73 15 194/86 (122) 90 I/O 10/29/17 10/29/17 10/29/17 10/30/17 10/30/17 10/30/17 07:00 15:00 23:00 07:00 15:00 23:00 Intake Total 240 ml Balance 240 ml Intake Oral 240 ml Result Diagram: 10/30/1762310/30/1724 Objective Remarks GENERAL: Well-nourished, well-developed morbidly obese female patient in NAD. Awake and alert. Appears comfortable. SKIN: Warm and dry. No rash. HEAD: Normocephalic. Atraumatic. EYES: Pupils equal and round. No scleral icterus. No injection or drainage. ENT: No nasal bleeding or discharge. Mucous membranes pink and moist. NECK: Supple. Trachea midline. CARDIOVASCULAR: Regular rate and rhythm. S1, S2 noted. No murmur appreciated. RESPIRATORY: Nonlabored. Clear to auscultation. Breath sounds equal bilaterally. GASTROINTESTINAL: Abdomen soft, obese. (+)subjective tenderness to palpation over lower abdomen. Normoactive bowel sounds x4. MUSCULOSKELETAL: No obvious deformities. Extremities without clubbing or cyanosis. Trace bilateral lower extremity edema. NEUROLOGICAL: Awake and alert. No obvious cranial nerve deficits. Motor grossly within normal limits. 5/5 muscle strength in bilateral upper and lower extremities. Normal speech. PSYCHIATRIC: Appropriate mood and affect; insight and judgment normal. Medications and IVs Current Medications Medications (Trade) Dose Ordered Sig/Minesh Route Start Time Stop Time Status Last Admin (Ativan) 1 mg Q6H PRN PO 10/27/17 03:45 10/29/17 16:10 (Ativan Inj) 1 mg Q6H PRN IM 10/27/17 03:45 (Tylenol) 650 mg Q4H PRN PO 10/27/17 03:45 10/30/17 08:11 (Milk Of Magnesia Liq) 30 ml DAILY PRN PO 10/27/17 03:45 (Mag-Al Plus Susp Liq) 30 ml Q6H PRN PO 10/27/17 03:45 10/29/17 11:40 (Albuterol Concentrated Neb) 2.5 mg Q6HR NEB PRN INH 10/27/17 03:45 10/30/17 12:30 (Singulair) 10 mg HS PO 10/27/17 21:00 10/29/17 21:27 (Protonix) 20 mg HS PO 10/27/17 21:00 10/29/17 21:27 (Zoloft) 200 mg HS PO 10/27/17 21:00 10/29/17 21:27 (Topamax) 50 mg BID PO 10/27/17 09:00 10/30/17 08:03 (Atarax) 10 mg DAILY PO 10/27/17 09:00 10/30/17 08:02 (Abilify) 30 mg DAILY PO 10/27/17 09:00 10/30/17 08:02 (Lactinex) 1 tab TID PO 10/27/17 13:00 10/30/17 08:02 (Bentyl) 20 mg QID PRN PO 10/27/17 11:15 10/30/17 08:11 (Wellbutrin Sr) 150 mg DAILY PO 10/28/17 09:00 10/30/17 08:03 (Cymbalta Dr) 30 mg DAILY@1600 PO 10/27/17 16:00 10/29/17 16:17 (Cozaar) 25 mg DAILY PO 10/28/17 16:45 10/30/17 08:02 (Zofran Odt) 4 mg Q6H PRN PO 10/29/17 12:00 10/29/17 12:28 (Catapres) 0.1 mg Q4H PRN PO 10/29/17 17:00 10/29/17 16:27 (Lasix) 40 mg BID@,18 PO 10/29/17 18:00 10/30/17 08:03 A/P Assessment and Plan Depression Suicidal ideation - Management per psychiatric team Acute on chronic abdominal pain Nausea/vomiting hx of cholecystectomy - patient follows with Dr. Patel of GI as outpatient. Patient with recent GES on the , she does not know the results. Still with complaints of severe abdominal pain. Will consult Dr. Patel, appreciate recommendations. - obtain KUB - UA 10/26 unremarkable. Obtain repeat UA. - obtain lipase level - continue on Bentyl for abdominal cramping - Zofran prn N/V Morbid Obesity hx of previous gastric surgery - BMI 83.7 - lifestyle modification to include healthy eating habits and regular home exercise program HTN - continue patient on Losartan. BP not well controlled. Increase Losartan dose. - monitor BP and adjust treatment accordingly Transaminitis - patient follows with GI as outpatient - chronic, - avoid hepatotoxic agents - negative hepatitis profile, CT abd/pelvis showing homogeneous density without lesion 04/16 DVT prophylaxis - patient is ambulatory Georgie Ca Oct 30, 2017 13:56
[2017-10-30 14:38] LABS: BACTERIA, URINE RARE /hpf; BILIRUBIN, URINE NEG (NEG); BLOOD, URINE NEG (NEG); GLUCOSE,URINE NEG (NEG); KETONE, URINE NEG (NEG); MUCUS URINE FEW /lpf (OCC); NITRITE,URINE NEG (NEG); SQUAMOUS EPITHELIAL CELL URINE 4 /hpf (0-5); TRANSITIONAL EPI CELLS, URINE <1 /hpf; URINE COLOR YELLOW (YELLW/STRAW); URINE LEUKOCYTE ESTERASE MOD (NEG)
--- NOTE | 2017-10-30 15:18 | HHI.PYPN ---
Subjective Chief Complaint: depression urges to self mutilate Remarks Patient seen for follow-up, chart reviewed. Discussion her sister reported patient reported feeling better and denies any suicidal or homicidal ideations. Patient found heavily evaluated by to be calm and cooperative interview today. Patient continues report feelings of abdominal pain which she states affects mood but in general reports feeling "okay". Patient states sleeping well. Patient reports eating as much as she can tolerate due to abdominal pain and had also met with a dietitian which recommendations. Patient states that she has vague thoughts of wanting to cut herself but denies any homicidal suicidal ideations. Patient reports having spoken to family over the phone which feel that she is getting better. Review of Systems Except as stated in HPI: all other systems reviewed are Neg Mental Status Examination Appearance: Appropriate, Malodorous Consciousness: Alert Orientation: x4 Motor Activity: Normal gait Speech: Unremarkable Language: Adequate Fund of Knowledge: Adequate Attention and Concentration: Adequate Memory: Unremarkable Mood: Sad Affect: Sad Thought Process & Associations: Intact Thought Content: Appropriate Hallucination Type: None Delusion Type: None Suicidal Ideation: No Suicidal Plan: No Suicidal Intention: No Homicidal Ideation: No Homicidal Plan: No Homicidal Intention: No Insight: Fair Judgment: Impulsive Results Labs Labs reviewed Test 10/30/17 06:24 10/30/17 14:22 White Blood Count 5.9 TH/MM3 Red Blood Count 4.89 MIL/MM3 Hemoglobin 13.5 GM/DL Hematocrit 40.7 % Mean Corpuscular Volume 83.3 FL Mean Corpuscular Hemoglobin 27.7 PG Mean Corpuscular Hemoglobin Concent 33.2 % Red Cell Distribution Width 13.6 % Platelet Count 256 TH/MM3 Mean Platelet Volume 8.0 FL Neutrophils (%) (Auto) 46.5 % Lymphocytes (%) (Auto) 39.4 % Monocytes (%) (Auto) 6.7 % Eosinophils (%) (Auto) 6.3 % Basophils (%) (Auto) 1.1 % Neutrophils # (Auto) 2.7 TH/MM3 Lymphocytes # (Auto) 2.3 TH/MM3 Monocytes # (Auto) 0.4 TH/MM3 Eosinophils # (Auto) 0.4 TH/MM3 Basophils # (Auto) 0.1 TH/MM3 CBC Comment DIFF FINAL Differential Comment Blood Urea Nitrogen 14 MG/DL Creatinine 0.67 MG/DL Random Glucose 90 MG/DL Total Protein 7.1 GM/DL Albumin 3.4 GM/DL Calcium Level 8.7 MG/DL Phosphorus Level 4.5 MG/DL Magnesium Level 2.1 MG/DL Alkaline Phosphatase 113 U/L Aspartate Amino Transf (AST/SGOT) 71 U/L Alanine Aminotransferase (ALT/SGPT) 81 U/L Total Bilirubin 0.3 MG/DL Sodium Level 143 MEQ/L Potassium Level 3.8 MEQ/L Chloride Level 104 MEQ/L Carbon Dioxide Level 32.8 MEQ/L Anion Gap 6 MEQ/L Estimat Glomerular Filtration Rate 103 ML/MIN Lipase 112 U/L Free Thyroxine 0.99 NG/DL Thyroid Stimulating Hormone 3rd Gen 4.510 uIU/ML Urine Color YELLOW Urine Turbidity HAZY Urine pH 5.0 Urine Specific [place] 1.010 Urine Protein NEG mg/dL Urine Glucose (UA) NEG mg/dL Urine Ketones NEG mg/dL Urine Occult Blood NEG Urine Nitrite NEG Urine Bilirubin NEG Urine Urobilinogen LESS THAN 2.0 MG/DL Urine Leukocyte Esterase MOD Urine RBC 1 /hpf Urine WBC 2 /hpf Urine Squamous Epithelial Cells 4 /hpf Urine Transitional Epithelial Cells <1 /hpf Urine Bacteria RARE /hpf Urine Mucus FEW /lpf Microscopic Urinalysis Comment CULT NOT INDICATED Vitals/IOs Vital Signs Date Time Temp Pulse Resp B/P (MAP) Pulse Ox O2 Delivery O2 Flow Rate FiO2 10/30/17 05:51 97.5 74 17 144/68 (93) 92 10/26/17 19:19 Room Air Intake and Output 10/30/17 10/30/17 10/31/17 08:00 16:00 00:00 Intake Total 240 ml Balance 240 ml Assessment & Plan Problem List: (1) Bipolar disorder, curr episode depressed, severe, w/psychotic features ICD Codes: F31.5 - Bipolar disorder, current episode depressed, severe, with psychotic features Status: Chronic Assessment & Plan Patient at this time reports having some improvement in mood but continues to have intermittent thoughts of wanting to cut herself which are also exacerbated by her continued chronic abdominal pain. Patient denies any thoughts of suicide at this time. Patient continues to have pain which is managed by the primary medical team. We'll continue current treatment as patient appears to be improving. Recommendations as per primary medical team. Brief supportive psychotherapy provided. Discharge planning in progress Justification for Cont. Inpt. At risk for decompensation at lower level of care Discharge Planning Patient to return back to her residence upon psychiatric stabilization Request HC Surrog/Guard Advoc?: No Cristobal Branham MD Oct 30, 2017 15:18
[2017-10-30] MEDS: DULoxetine HCl DR 30 MG CAP PO SCH (15:24)
--- NOTE | 2017-10-30 15:24 | RADRPT ---
EXAM DATE/TIME: 10/30/2017 15:00 [facility] COMPARISON: CT ABDOMEN & PELVIS W CONTRAST, April 28, 2017, 20:02. INDICATIONS : Abdomen pain. MEDICAL HISTORY : Gastroesophageal reflux disease. Chronic obstructive pulmonary disease. Hypertension. SURGICAL HISTORY : Gasterectomy. ENCOUNTER: Initial ACUITY: 1 day PAIN SCORE: 0/10 LOCATION: Abdomen. FINDINGS: Supine view of the abdomen was performed. The abdominal bowel gas pattern is normal. No abnormal ma sses, calcifications, or organomegaly is seen. The osseous structures are unremarkable. Clip in plac e prior cholecystectomy. CONCLUSION: Prior cholecystectomy. Benign abdomen. Primo Burch MD on October 30, 2017 at 15:20 Board Certified Radiologist. This report was verified electronically.
[2017-10-30 15:37] LABS: HEMOGLOBIN A1C 5.7 % (4.3-6.0)
[2017-10-30] MEDS: SUCRALFATE 1 GM TAB PO SCH ×2 (17:00→21:00)
[2017-10-30] MEDS: ONDANSETRON ODT 4 MG TAB PO PRN (17:01)
--- NOTE | 2017-10-30 17:52 | MB ---
cc: JASMYNE QUINTANILLA M.D., HARRY M.D. DATE OF CONSULTATION: 10/30/2017 DATE OF : 1985 VISUAL DESIGNER: Dylon Christie MD. REASON FOR CONSULTATION: The patient is a 32 year-old white female I was asked to see her for further evaluation, management of abdominal pain. She has been seeing Dr. Patel as an outpatient for quite some time. She tells me that since her cholecystectomy two years ago, she has had post prandial abdominal pain starting within minutes of eating a meal. It tends to be across the low abdomen. The patient describes as a sharp/lightening type pain. She has had some nausea. She has had no diarrhea or constipation. She has been gaining weight and recent gastric emptying study was normal. Zofran has helped symptoms to a degree. Course of Flagyl may have helped to some degree in the past. A panendoscopy had been preformed on March, there is evidence of prior gastric sleeve, two hyperplastic gastric polyps were removed. Mild antral erythema was noted. Biopsies confirmed mild to moderate chronic gastritis with no intestinal metaplasia and no H-pylori organisms. CT scan in March was unremarkable. Supine abdominal films today unremarkable. PAST MEDICAL HISTORY: The patients medical history is significant for bipolar disorder. Hypertension. PAST SURGICAL HISTORY: 1. As mentioned, Cholecystectomy. 2. Gastric sleeve procedure. MEDICATIONS: 1. On admission 2. Topamax. 3. Wellbutrin 4. Lasix 5. Losartan 6. Abilify 7. Hydroxyzine 8. Sertraline 9. Omeprazole 20 mg at bedtime 10. Singulair 11. Albuterol ALLERGIES ADHESIVE TAPE AMOXICILLIN BACLOFEN CLARITHROMYCIN CARBONIC ACID LATEX METHOCARBAMOL SHELLFISH SOCIAL HISTORY: No alcohol or drug use. FAMILY HISTORY: None for any psychiatric disorders. REVIEW OF SYSTEMS She denies headaches, she has had no history of seizures. She denies dysphagia, odynophagia. Early satiety, she has had no bowel irregularities recently although she has had diarrhea in the past. No chest pains, no palpitations, no respiratory difficulties. No urinary symptoms. PHYSICAL EXAMINATION: VITAL SIGNS: Weight 221 kg's, temperature 97.5. Pulse 74, blood pressure 144/68. Oxygen saturation 92% on room air. IN GENERAL: She is alert and oriented times three. She is morbidly obese. She is anicteric, extraocular motions are intact. LYMPHATICS: I appreciate no submandibular, cervical, supraclavicular, axillary or epitrochlea adenopathy. LUNGS: The lungs are clear to auscultation. HEART: The heart examination Regular rate and rhythm, no appreciable murmur or gallop. ABDOMEN: Bowel sounds with no appreciable bruit. The abdomen is soft, there is tenderness to a mild degree in the low abdomen. Though it is hard to know if I am actually pressing into the abdominal structures or if the discomfort is related to the subcutaneous fatty tissue. I appreciate no hepatosplenomegaly or palmar erythema or Dupuytren's contractors. LABORATORY STUDIES: Today white count 5.9, hemoglobin 13.5, platelets 256, sodium 143, potassium 3.8, blood urea nitrogen 14, creatinine 0.67. Aspartate aminotransferase 71, ALT 81, alkaline phosphatase 113, bilirubin 0.3, thyroid stimulating hormone 4.5. Human chorionic gonadotropin less than 1. Urinalysis unremarkable. Toxicology screen negative. IMPRESSION: 1. Post prandial abdominal pain with nausea and vomiting with studies as outlined above. 2. Normal CT scan in March. 3. Normal recent gastric emptying study. 4. Panendoscopy revealing moderate gastritis histologically. 5. She has been on Omeprazole. PLAN: At this point I suggest a trial of sucralfate in case the gastric mucosal irrigation is related to a non-acid irritant. This product will be given one gram four times per day. One hour before meals and at bedtime. Not to be given within one hour of other medications. Dr. Patel will follow up on this patient tomorrow. MD SAMUEL Li/gopal /3:42 PM /3:51 PM
[2017-10-30 18:00] VITALS: BP 139/60; PULSE 79; RESP 20; TEMP 98.4; O2SAT 96
[2017-10-30] MEDS: SERTRALINE HCL 100 MG TAB PO SCH (20:59)
[2017-10-30] MEDS: MONTELUKAST SODIUM 10 MG TAB PO SCH (21:00)
[2017-10-30] MEDS: PANTOPRAZOLE SOD 20 MG DELAYED RELEASE TAB PO SCH (21:00)
[2017-10-31] MEDS: ACETAMINOPHEN 325 MG TAB PO PRN ×2 (01:13→11:38)
[2017-10-31] MEDS: ONDANSETRON ODT 4 MG TAB PO PRN (01:14)
[2017-10-31 06:00] VITALS: BP 99/58; PULSE 88; RESP 18; TEMP 97.4; O2SAT 90
[2017-10-31] MEDS: SUCRALFATE 1 GM TAB PO SCH ×2 (08:00→11:11)
[2017-10-31] MEDS: ARIPiprazole 30 MG TAB PO SCH (08:35)
[2017-10-31] MEDS: buPROPion HCL 150 MG SUSTAINED RELEASE TAB PO SCH (08:35)
[2017-10-31] MEDS: LACTOBACILLUS ACIDOPHILUS TAB PO SCH ×2 (08:35→13:00)
[2017-10-31] MEDS: FUROSEMIDE 40 MG TAB PO SCH (08:35)
[2017-10-31] MEDS: TOPIRAMATE 25 MG TAB PO SCH (08:35)
[2017-10-31] MEDS: hydrOXYzine HCL 10 MG TAB PO SCH (09:00)
[2017-10-31] MEDS ORDERED: LOSARTAN 25 MG TAB PO SCH (09:00)
[2017-10-31] MEDS ORDERED: LOSARTAN 50 MG TAB PO SCH (09:00)
--- NOTE | 2017-10-31 09:59 | HHI.GIFU ---
Subjective Remarks alert nad c/o lower abdominal pain across abdomen without vomiting Bowel movements ok Objective Vitals I&O Vital Signs Date Time Temp Pulse Resp B/P (MAP) Pulse Ox O2 Delivery O2 Flow Rate FiO2 10/31/17 06:00 97.4 88 18 99/58 (72) 90 10/30/17 18:00 98.4 79 20 139/60 (86) 96 I/O 10/30/17 10/30/17 10/30/17 10/31/17 10/31/17 10/31/17 07:00 15:00 23:00 07:00 15:00 23:00 Intake Total 240 ml 240 ml Balance 240 ml 240 ml Intake Oral 240 ml 240 ml Laboratory Laboratory Tests Test 10/30/17 14:22 Urine Color YELLOW Urine Turbidity HAZY Urine pH 5.0 Urine Specific [place] 1.010 Urine Protein NEG Urine Glucose (UA) NEG Urine Ketones NEG Urine Occult Blood NEG Urine Nitrite NEG Urine Bilirubin NEG Urine Urobilinogen LESS THAN 2.0 Urine Leukocyte Esterase MOD Urine RBC 1 Urine WBC 2 Urine Squamous Epithelial Cells 4 Urine Transitional Epithelial Cells <1 Urine Bacteria RARE Urine Mucus FEW Microscopic Urinalysis Comment CULT NOT INDICATED Physical Exam CHEST: Chest is clear to auscultation and percussion. CARDIAC: Regular rate and rhythm with no murmur gallop or rubs. ABDOMEN: Soft, nondistended, extremely large and pendulous, no discrete rebound or gaurding bs pos EXTREMITIES: No clubbing, cyanosis, or edema. Assessment and Plan Assessment: (1) Abdominal pain ICD Codes: R10.9 - Unspecified abdominal pain (2) BIPOLAR DISORDER, UNSPECIFIED Status: Chronic Plan continue present therapy pain me be due to abdominal wall or musculo skeletal etiology ...could also try warm heating pad or ultram prn otherwise will sign off and f/u as outpt thanks Levi Patel MD Oct 31, 2017 09:59
[2017-10-31 12:41] LABS: ALKALINE PHOSPHATASE 113 U/L (45-117); ALT (GPT) 81 U/L (10-53); TOTAL BILIRUBIN ADULT 0.3 MG/DL (0.2-1.0); TOTAL PROTEIN 7.2 GM/DL (6.4-8.2)
[2017-10-31 12:42] LABS: ALBUMIN 3.5 GM/DL (3.4-5.0); AST (GOT) 77 U/L (15-37); BICARBONATE 34.8 MEQ/L (21.0-32.0); BLOOD UREA NITROGEN 16 MG/DL (7-18); CALCIUM 8.8 MG/DL (8.5-10.1); CHLORIDE 101 MEQ/L (98-107); GLOMERULAR FILTRATION RATE 84 ML/MIN (>89); GLUCOSE,RANDOM 92 MG/DL (74-106); SODIUM (NA) 139 MEQ/L (136-145)
[2017-10-31] MEDS ORDERED: COZA25TA PO (14:09)
[2017-10-31] MEDS ORDERED: FURO40TA PO (14:09)
[2017-10-31] MEDS ORDERED: HYDR-755 PO (14:09)
[2017-10-31] MEDS ORDERED: SERT-129 PO (14:09)
[2017-10-31] MEDS ORDERED: DULO1CAP2 PO (14:09)
[2017-10-31] MEDS ORDERED: DICY20TA10 PO (14:09)
[2017-10-31] MEDS ORDERED: ABIL30TA5 PO (14:09)
[2017-10-31] MEDS ORDERED: LACT PO (14:09)
[2017-10-31] MEDS ORDERED: MONT10TA2 PO (14:09)
[2017-10-31] MEDS ORDERED: CARA1TAB6 PO (14:09)
[2017-10-31] MEDS ORDERED: PANT20 PO (14:09)
[2017-10-31] MEDS ORDERED: TOPA50TA7 PO (14:09)
[2017-10-31] MEDS ORDERED: BUPR150CR PO (14:09)
--- NOTE | 2017-10-31 14:11 | HHI.DS ---
Psychiatry Discharge Summary Inpatient Psychiatric care?: Yes Advance Directive: No Reason Not Provided: not interested Mental Health AdvanceDirective: No Health Care Proxy: No Admission Admission Date Oct 27, 2017 at 02:12 Admission Diagnosis: (1) Bipolar disorder, curr episode depressed, severe, w/psychotic features ICD Code: F31.5 - Bipolar disorder, current episode depressed, severe, with psychotic features Brief History Patient is a 32-year-old morbidly obese white female known to me from prior hospitalization in March 2017. Comes here today voluntarily with a history of chronic abdominal pain for 4+ years with multiple examinations and workups that have been negative. The patient appears to started after she had a gallbladder surgery. Urine toxicology negative. At the present time patient sitting quietly in her room nurse Joanna present throughout session. Patient alert origin calm cooperative did remember me from her prior contact. She states she lives with her mother father lala she's had a relationship with for 7 years and her younger sister. She states she has been depressed related to the chronicity of his pain and the inability to treated sufficiently for her purpose. She is also somewhat upset by the lack of care infection by her lala . She is had marked increased urges to cut herself related to some pressure in her head. In the hopes to relieve the abdominal pain. She is also considered cutting on her abdomen related to this. She denies suicidal ideation intent or plan though has some vague ideation. She is unemployed at the present time. The lithium that since being a pleasure are her 2 small dogs. She denies any physical or sexual abuse. Denies an significant mental health issues in the family. Patient does have various specialists in the community that she follows up with including Dr. Patel, she sees Dr. Romulo loyola been a psychiatrist for a number of years. Though she denies seeing a counselor. At the present time patient doesn't meet criteria for a brief inpatient psychiatric hospitalization. We did discuss medications. We will wean patient off of her Wellbutrin cutting the dose in half today and adding Cymbalta 30 mg in the afternoon. Hopeless to be fairly short stay patient to follow-up with Dr. loyola Tobacco Use In Past 30 Days: No Tobacco Past 30 Days Alcohol Use: Never Hospital Course Patient is a 32-year-old morbidly obese woman, engaged, unemployed, with past psychiatric history of bipolar disorder, previous psychiatric admissions, previous suicide attempt, history of self-injurious behavior via cutting okay voluntarily due to having suicidal ideations and thoughts of cutting in the context of chronic abdominal pain which he was transferred to the inpatient psychiatry unit for further evaluation and management. Patient was continued on bupropion 150 mg by mouth twice a day, hydroxyzine 10 mg by mouth daily, Abilify 30 mg by mouth daily, sertraline 200 mg by mouth at bedtime and continued on medication management for medical issues. Patient noted to tolerate medications well without adverse drug reactions noted. Patient continue with treatment and was noted to have improvement of mood, had cessation of any perceptual disturbances along with a thoughts of wanting to harm herself as well as improvement in sleep and mood. She was noted to be cooperative with staff as well as being future oriented and wanted to return back home. Patient was noted to have improvement of insight and judgment as well. Patient was adherent to medication regimen and recommendations as per primary medical team. Upon discharge patient stated feeling good, stated feeling okay with returning back to residential facility; noted to be calm and cooperative with staff. He agreed to continuing medical recommendations, treatment and attend outpatient follow up appointments for continuity of care. Patient; denies SI, HI, AVH or delusions. Supportive psychotherapy provided. Patient advised to call 911 or return back to the ED in case of any emergency. Patient agrees with plan. Results Blood Pressure 99 / 58 Vital Signs Date Time Temp Pulse Resp B/P (MAP) Pulse Ox O2 Delivery O2 Flow Rate FiO2 10/31/17 06:00 97.4 88 18 99/58 (72) 90 Laboratory Tests Test 10/29/17 13:45 10/30/17 06:24 10/30/17 14:22 10/31/17 10:07 Aspartate Amino Transf (AST/SGOT) 75 U/L (15-37) 71 U/L (15-37) 77 U/L (15-37) Alanine Aminotransferase (ALT/SGPT) 83 U/L (10-53) 81 U/L (10-53) 81 U/L (10-53) Anion Gap 4 MEQ/L (5-15) 3 MEQ/L (5-15) Eosinophils (%) (Auto) 6.3 % (0.0-4.0) Carbon Dioxide Level 32.8 MEQ/L (21.0-32.0) 34.8 MEQ/L (21.0-32.0) Thyroid Stimulating Hormone 3rd Gen 4.510 uIU/ML (0.358-3.740) Urine Turbidity HAZY (CLEAR) Urine Leukocyte Esterase MOD (NEG) Urine Bacteria RARE /hpf (NONE) Urine Mucus FEW /lpf (OCC) Estimat Glomerular Filtration Rate 84 ML/MIN (>89) Laboratory Results Test 10/30/17 06:24 Hemoglobin A1c 5.7 % (4.3-6.0) Summary of Procedures None Imaging Last Impressions Abdomen X-Ray 10/30/17 0000 Signed Impressions: Service Date/Time: Monday, October 30, 2017 15:00 - CONCLUSION: Prior cholecystectomy. Benign abdomen. Primo Burch MD Pending results at discharge: No Medications # of Antipsychotic meds at D/C: 1 Approp Antipsych med options 1 - Minimum of three failed multiple trials of monotherapy. 2 - Documented plan to taper to monotherapy due to previous use of multiple meds OR cross-taper in progress at D/C. 3 - Documentation of augmentation of Clozapine. 4 - Justification other than those listed in allowable values 1-3, document here : Discharge Discharge Date: Oct 31, 2017 Discharge Diagnosis: (1) Bipolar disorder, curr episode depressed, severe, w/psychotic features ICD Code: F31.5 - Bipolar disorder, current episode depressed, severe, with psychotic features Status: Chronic Pt Condition on Discharge: Stable Discharge Disposition: Discharge Home Discharge Instructions Diet Instructions: Heart Healthy Diet Activities you can perform: Regular-No Restrictions Scheduled Appointment: Dr Romulo Loyola Discharge Time > 30 minutes Mental Status Examination Appearance: Appropriate, Malodorous Consciousness: Alert Orientation: x4 Motor Activity: Normal gait Speech: Unremarkable Language: Adequate Fund of Knowledge: Adequate Attention and Concentration: Adequate Memory: Unremarkable Mood: Appropriate Affect: Appropriate Thought Process & Associations: Intact Thought Content: Appropriate Hallucination Type: None Delusion Type: None Suicidal Ideation: No Suicidal Plan: No Suicidal Intention: No Homicidal Ideation: No Homicidal Plan: No Homicidal Intention: No Insight: Fair Judgment: Impulsive Discharge/Advance Care Plan Health Problems: (1) Bipolar disorder, curr episode depressed, severe, w/psychotic features Goals to promote your health * To prevent worsening of your condition and complications * To maintain your health at the optimal level Directions to meet your goals Take your medications as prescribed Follow your dietary instruction Follow activity as directed Keep your appointments as scheduled Take your immunizations and boosters as scheduled If your symptoms worsen call your PCP, if no PCP go to Urgent Care Center or Emergency Room For 23/04 questions related to your inpatient stay or results of tests pending at discharge, please contact Dr. Cristobal Branham at Smoking is Dangerous to Your Health. Avoid second hand smoking Cristobal Branham MD Oct 31, 2017 14:11
== END 2017-10-31 15:45 | disposition home or self-care (01) | DRG 885 ==
LOC: NEPD 19:17 → NEDA 10-27 02:12 → H260 10-27 03:20
PROVIDERS: ADMIT Student in an Organized Health Care Education/Training Program; ATTEND Student in an Organized Health Care Education/Training Program
DX: F31.5 Bipolar disorder, current episode depressed, severe, with psychotic features (principal); D80.3 Selective deficiency of immunoglobulin G [IgG] subclasses; R45.851 Suicidal ideations; Z68.45 Body mass index [BMI] 70 or greater, adult; E66.01 Morbid (severe) obesity due to excess calories; R19.7 Diarrhea, unspecified; F90.9 Attention-deficit hyperactivity disorder, unspecified type; I10 Essential (primary) hypertension; E78.00 Pure hypercholesterolemia, unspecified; J44.9 Chronic obstructive pulmonary disease, unspecified; K21.9 Gastro-esophageal reflux disease without esophagitis; G47.30 Sleep apnea, unspecified; R74.0 Nonspecific elevation of levels of transaminase and lactic acid dehydrogenase [LDH]; G89.29 Other chronic pain; R10.30 Lower abdominal pain, unspecified; K29.50 Unspecified chronic gastritis without bleeding; Z62.810 Personal history of physical and sexual abuse in childhood; Z86.14 Personal history of Methicillin resistant Staphylococcus aureus infection; Z88.1 Allergy status to other antibiotic agents; Z91.013 Allergy to seafood; Z91.040 Latex allergy status; Z91.5 Personal history of self-harm; Z98.84 Bariatric surgery status
CPT/HCPCS: 74018; 80053; 80307; 81001; 83036; 83690; 83735; 84100; 84439; 84443; 84702; 85025; 94640; 94664; 99285; J7611

== ENCOUNTER 2018-02-08 15:43 | Emergency (ER) | payer MEDICARE, OTHER ==
[~2018-02-08] VITALS: Ht 162.6 cm; Wt 230.0 kg
[~2018-02-08 15:43] MED LIST changes: -ABIL20TA5 PO; +ABIL30TA5 PO; -BUPR100T4 PO; +CARA1TAB6 PO; +COZA25TA PO; +DICY20TA10 PO; +DULO1CAP2 PO; +FURO40TA PO; +HYDR-755 PO; +LACT PO; -LISI-515 PO; -OMEP20CA2 PO; +PANT20 PO; -RISP1TAB54 PO; -ZOLO100T PO
[2018-02-08 15:56] VITALS: BP 194/88; PULSE 117; RESP 22; TEMP 98.6; O2SAT 85
[2018-02-08] MEDS ORDERED: methylPREDNISolone SOD SUCC 125 MG/2 ML VIAL IV PUSH ONE (16:30)
[2018-02-08] MEDS ORDERED: SODIUM CHLORIDE 0.9% FLUSH 10 ML FLUSH IVF PRN (16:30)
[2018-02-08 16:42] LABS: AUTOMATED NEUTROPHIL # 4.1 TH/MM3 (1.8-7.7); BASOPHIL # 0.1 TH/MM3 (0-0.2); EOSINOPHIL # 0.4 TH/MM3 (0-0.4); EOSINOPHIL % 5.1 % (0.0-4.0); HEMATOCRIT 37.3 % (35.0-46.0); HEMOGLOBIN 12.4 GM/DL (11.6-15.3); LYMPH % 27.2 % (9.0-44.0); LYMPHOCYTE # 1.9 TH/MM3 (1.0-4.8); MEAN CORPUSCULAR HEMOGLOBIN 27.9 PG (27.0-34.0); MEAN CORPUSCULAR HGB CONC 33.2 % (32.0-36.0); MEAN PLATELET VOLUME 8.1 FL (7.0-11.0); MONO % 9.2 % (0.0-8.0); MONOCYTE # 0.7 TH/MM3 (0-0.9); NEUT % 57.5 % (16.0-70.0); PLATELET COUNT 240 TH/MM3 (150-450); RED BLOOD COUNT 4.44 MIL/MM3 (4.00-5.30); RED CELL DISTRIBUTION WIDTH 13.9 % (11.6-17.2); WHITE BLOOD COUNT 7.1 TH/MM3 (4.0-11.0)
[2018-02-08 16:51] LABS: PROTHROMBIN TIME - PATIENT 10.5 SEC (9.8-11.6)
--- NOTE | 2018-02-08 16:59 | RADRPT ---
EXAM DATE/TIME: 02/08/2018 16:34 [facility] COMPARISON: CHEST SINGLE AP, April 24, 2017, 11:25. INDICATIONS : Short of breath. MEDICAL HISTORY : Hypertension. Hypercholesterolemia. Chronic obstructive pulmonary disease. Asthma. Sleep apnea. GERD. Bipolar. ADHD. PTSD. SURGICAL HISTORY : Cholecystectomy. Right eye surgery. Adenoidectomy. Veritcal sleeve gastrectomy. ENCOUNTER: Initial ACUITY: 4 - 6 days PAIN SCORE: 7/10 LOCATION: Bilateral chest FINDINGS: A single view of the chest demonstrates the lungs to be symmetrically aerated without evidence of mas s, infiltrate or effusion. The cardiomediastinal contours are stable with borderline heart size. Os seous structures are intact. CONCLUSION: No acute disease Nain Fried MD on February 08, 2018 at 16:56 Board Certified Radiologist. This report was verified electronically.
[2018-02-08 17:04] VITALS: O2SAT 98
[2018-02-08] MEDS: RESP: ALBUTEROL 2.5 MG/IPRATROPIUM 0.5 MG NEB (SCH) INH (17:11)
--- NOTE | 2018-02-08 17:14 | PD ---
HPI Chief Complaint: Respiratory Symptoms Time Seen by Provider: 16:16 Travel History International Travel<30 days: No Contact w/Intl Traveler<30days: No Traveled to known affect area: No History of Present Illness HPI 33-year-old female with PMH of asthma, COPD, ACOSTA, bipolar, anxiety presents to the ED for evaluation of 3 day history of worsening shortness of breath. Patient complains of sinus congestion and runny nose with a nonproductive cough for 1 day. She endorses accompanying palpitations. She denies chest pain, nausea, vomiting, diaphoresis. She did receive this years flu vaccine. She wears a CPAP at night and uses O2 as needed during the day. She states that her O2 sats generally run around 90, maybe to "93 or 94 on a good day." She treated at home with duo nebs every 4 hours yesterday with no improvement of symptoms. She is followed by Dr. Coughlin, chaplain resident. PFSH Past Medical History Hx Anticoagulant Therapy: No ADD: Yes ADHD: Yes Arthritis: No Asthma: Yes Autoimmune Disease: Yes (IGG DEF) Blood Disorders: No Bipolar Disorder: Yes Anxiety: Yes Depression: Yes Heart Rhythm Problems: No High Cholesterol: Yes Chemotherapy: No Chest Pain: No Congestive Heart Failure: No COPD: Yes Cerebrovascular Accident: No Diabetes: No (per patient) Diminished Hearing: No Endocrine: No Gastrointestinal Disorders: Yes (GERD) GERD: Yes Glaucoma: No Genitourinary: No Headaches: No Hepatitis: No Hiatal Hernia: No Hypertension: Yes Immune Disorder: No Kidney Stones: No Musculoskeletal: No Neurologic: No Psychiatric: Yes (Bipolar disorder) Reproductive: No Respiratory: Yes (ASTHMA, ARDS) Integumentary: Yes (PSORIASIS) Immunizations Current: Yes Migraines: No Myocardial Infarction: No Radiation Therapy: No Renal Failure: No Sickle Cell Disease: No Sleep Apnea: Yes (BIPAP) Thyroid Disease: No Ulcer: No Tetanus Vaccination: < 5 Years Influenza Vaccination: Yes ?: Not LMP: IRREGULAR : 0 Ectopic : No Ovarian Cysts: No Tubal Ligation: No Past Surgical History Abdominal Surgery: Yes (VERTICAL SLEEVE GASTRECTOMY) AICD: No Arteriovenous Shunt: No Body Medical Devices: NONE Cardiac Surgery: No Cholecystectomy: Yes Ear Surgery: No Endocrine Surgery: No Eye Surgery: Yes (SURGERY ON RIGHT EYE) Genitourinary Surgery: No Gynecologic Surgery: No Hysterectomy: No Insulin Pump: No Joint Replacement: No Oral Surgery: Yes (ADENOIDECTOMY) Pacemaker: No Thoracic Surgery: No Tonsillectomy: Yes Other Surgery: Yes Social History Alcohol Use: No Tobacco Use: No Substance Use: No Allergies-Medications (Allergen,Severity, Reaction): Coded Allergies: adhesive (Unverified Allergy, Severe, RASH, 02/08/18) amoxicillin (Unverified Allergy, Severe, VOMITING, 02/08/18) baclofen (Unverified Allergy, Severe, NAUSEA AND VOMITING, 02/08/18) clarithromycin (Unverified Allergy, Severe, VOMITING, 02/08/18) clavulanic acid (Unverified Allergy, Severe, VOMITING, 02/08/18) latex (Unverified Allergy, Severe, RASH/ITCHING, 02/08/18) methocarbamol (Unverified Allergy, Severe, 02/08/18) shellfish derived (Unverified Allergy, Severe, Hives, 02/08/18) Reported Meds & Prescriptions Reported Meds & Active Scripts Active Doxycycline Hyclate 100 Mg Cap 100 Mg PO BID 5 Days Prednisone 20 Mg Tab 40 Mg PO DIRECTED 5 Days Acidophilus/l-Sporogenes (Lactobacillus Acidophilus) 35 Million Cell-25 Million Cell Tab 1 Tab PO TID 30 Days Protonix (Pantoprazole Sodium) 20 Mg Tab 20 Mg PO HS 30 Days Carafate (Sucralfate) 1 Gram Tab 1 Gm PO ACHS 30 Days Furosemide 40 Mg Tab 40 Mg PO BID@09,[address] (Duloxetine HCl) 30 Mg Capdr 30 Mg PO DAILY@1600 30 Days Wellbutrin SR 12 HR (Bupropion HCl) 150 Mg Tab 150 Mg PO DAILY 30 Days Cozaar (Losartan Potassium) 25 Mg Tab 25 Mg PO DAILY 30 Days Dicyclomine (Dicyclomine HCl) 20 Mg Tab 20 Mg PO QID PRN 30 Days Abilify (Aripiprazole) 30 Mg Tab 30 Mg PO DAILY 30 Days Hydroxyzine HCl 10 Mg Tab 10 Mg PO DAILY 30 Days Topamax (Topiramate) 50 Mg Tab 50 Mg PO BID 30 Days Sertraline (Sertraline HCl) 100 Mg Tab 200 Mg PO HS 30 Days Singulair (Montelukast Sodium) 10 Mg Tab 10 Mg PO HS 30 Days Reported Albuterol Neb (Albuterol Sulfate) 2.5 Mg/0.5 Ml Neb 2.5 Mg NEB Q6HR NEB PRN Note: The Albuterol Sulfate Inhalation Solution is concentrated and must be diluted. Read complete instructions carefully before using. Review of Systems Except as stated in HPI: all other systems reviewed are Neg Physical Exam Narrative GENERAL: Pleasant, morbidly obese, hirsute white female in no acute distress. SKIN: Focused skin assessment warm/dry. HEAD: Normocephalic. EYES: No scleral icterus. No injection or drainage. NECK: Supple, trachea midline. No JVD or lymphadenopathy. CARDIOVASCULAR: Regular rate and rhythm without murmurs, gallops, or rubs. RESPIRATORY: Breath sounds equal bilaterally. No rales. No crackles. Positive mild accessory muscle use. GASTROINTESTINAL: Abdomen soft, non-tender, nondistended. MUSCULOSKELETAL: No cyanosis, or edema. BACK: Nontender without obvious deformity. No CVA tenderness. Data Data Last Documented VS Vital Signs Date Time Temp Pulse Resp B/P (MAP) Pulse Ox O2 Delivery O2 Flow Rate FiO2 02/08/18 17:04 98 Nasal Cannula 02/08/18 17:04 3.00 02/08/18 16:08 96 24 02/08/18 15:56 98.6 194/88 (123) Orders Orders Complete Blood Count With Diff (02/08/18 16:) Comprehensive Metabolic Panel (02/08/18 16:23) Act Partial Throm Time (Ptt) (02/08/18 16:23) Prothrombin Time / Inr (Pt) (02/08/18 16:23) Magnesium (Mg) (02/08/18 16:23) Ckmb (Isoenzyme) Profile (02/08/18 16:23) Troponin I (02/08/18 16:23) Urinalysis - C+S If Indicated (02/08/18 16:23) Iv Access Insert/Monitor (02/08/18 16:23) Electrocardiogram (02/08/18 16:23) Ecg Monitoring (02/08/18 16:23) Oximetry (02/08/18 16:23) Oxygen Administration (02/08/18 16:23) Chest, Single Ap (02/08/18 16:23) Sodium Chloride 0.9% Flush (Ns Flush) (5/11/18 16:30) Methylprednisolone So Succ Inj (Solumedr (02/08/18 16:30) Albuterol-Ipratropium Neb (Duoneb Neb) (02/08/18 16:30) Calcium Carbonate Chew (Tums Chew) (02/08/18 18:15) Ed Discharge Order (02/08/18 20:19) Labs Laboratory Tests Test 02/08/18 16:20 02/08/18 19:30 White Blood Count 7.1 TH/MM3 Red Blood Count 4.44 MIL/MM3 Hemoglobin 12.4 GM/DL Hematocrit 37.3 % Mean Corpuscular Volume 84.0 FL Mean Corpuscular Hemoglobin 27.9 PG Mean Corpuscular Hemoglobin Concent 33.2 % Red Cell Distribution Width 13.9 % Platelet Count 240 TH/MM3 Mean Platelet Volume 8.1 FL Neutrophils (%) (Auto) 57.5 % Lymphocytes (%) (Auto) 27.2 % Monocytes (%) (Auto) 9.2 % Eosinophils (%) (Auto) 5.1 % Basophils (%) (Auto) 1.0 % Neutrophils # (Auto) 4.1 TH/MM3 Lymphocytes # (Auto) 1.9 TH/MM3 Monocytes # (Auto) 0.7 TH/MM3 Eosinophils # (Auto) 0.4 TH/MM3 Basophils # (Auto) 0.1 TH/MM3 CBC Comment DIFF FINAL Differential Comment Prothrombin Time 10.5 SEC Prothromb Time International Ratio 1.0 RATIO Activated Partial Thromboplast Time 27.2 SEC Blood Urea Nitrogen 13 MG/DL Creatinine 0.80 MG/DL Random Glucose 136 MG/DL Total Protein 7.3 GM/DL Albumin 3.2 GM/DL Calcium Level 8.2 MG/DL Magnesium Level 1.8 MG/DL Alkaline Phosphatase 127 U/L Aspartate Amino Transf (AST/SGOT) 98 U/L Alanine Aminotransferase (ALT/SGPT) 94 U/L Total Bilirubin 0.3 MG/DL Sodium Level 144 MEQ/L Potassium Level 3.5 MEQ/L Chloride Level 108 MEQ/L Carbon Dioxide Level 28.2 MEQ/L Anion Gap 8 MEQ/L Estimat Glomerular Filtration Rate 84 ML/MIN Total Creatine Kinase 94 U/L Troponin I LESS THAN 0.02 NG/ML Urine Color YELLOW Urine Turbidity HAZY Urine pH 6.0 Urine Specific [place] 1.024 Urine Protein TRACE mg/dL Urine Glucose (UA) NEG mg/dL Urine Ketones NEG mg/dL Urine Occult Blood TRACE Urine Nitrite NEG Urine Bilirubin NEG Urine Urobilinogen LESS THAN 2.0 MG/DL Urine Leukocyte Esterase SMALL Urine RBC LESS THAN 1 /hpf Urine WBC 1 /hpf Urine Squamous Epithelial Cells 8 /hpf Urine Mucus FEW /lpf Microscopic Urinalysis Comment CULT NOT INDICATED MDM Medical Decision Making Medical Screen Exam Complete: Yes Emergency Medical Condition: Yes Differential Diagnosis COPD exacerbation versus cough versus PNA versus bronchitis versus viral syndrome versus other Narrative Course 33-year-old female with PMH of asthma, COPD, ACOSTA, anxiety presents to the ED for evaluation of 3 day history of worsening shortness of breath. She wears a CPAP at night and uses O2 as needed during the day. She states that her O2 sats generally run around 90, maybe to "93 or 94 on a good day." She treated at home with duo nebs every 4 hours yesterday with no improvement of symptoms. She is followed by Dr. Coughlin, chaplain resident. Respiratory rate 22, O2 sats 85% on room air on presentation in triage. This improved to rate of 24 with O2 sats of 89% on room air in the exam room. On exam this is a morbidly obese, hirsute white female with no significant extra work of breathing. Lung sounds are clear. O2 sats 98% on 3 L by nasal cannula. IV was established. Patient was administered 125 mg methylprednisolone IV and duo nebs 3. EKG rate 77, sinus rhythm. TN interval 164, QRS 110, QTc 414. Normal axis. No acute ST changes. Reviewed by Dr. Krueger. CXR: No acute disease per radiology read. Cardiac enzymes: Negative 1. CBC: No leukocytosis or anemia. CMP: Mild deficit of calcium, elevated LFTs with normal bilirubin. Otherwise unremarkable. UA: No culture indicated. Her O2 sats are essentially at baseline. She reports that she did not have any improvement with the DuoNeb's. I suspect that her body habitus plays a role in her significant breathing difficulties. She is provided a short course of steroids, 5 days of doxycycline. She is instructed to follow-up with her chaplain resident this week, return for worsening symptoms. She indicated understanding the instructions. She stable and discharged home. Diagnosis Primary Impression: COPD exacerbation Referrals: Fitness Instructor Additional Instructions: Rest, hydrate. Resume normal, gentle activity as tolerated. Begin steroids and antibiotics tomorrow. Take them until each pill is gone. Utilize home O2 as needed as previously prescribed. Continue at home medications as previously prescribed. Follow-up with your chaplain resident next week. Return to the ED for worsening symptoms or any urgent or emergent medical condition. Med/Other Pt SpecificInfo: Prescription(s) given Scripts Doxycycline Hyclate (Doxycycline Hyclate) 100 Mg Cap 100 MG PO BID for Infection for 5 Days, #10 CAP 0 Refills Prov: Bipin Krueger MD 02/08/18 Prednisone (Prednisone) 20 Mg Tab 40 MG PO DIRECTED for 5 Days, TAB 0 Refills Prov: Bipin Krueger MD 02/08/18 Disposition: 01 DISCHARGE HOME Condition: Stable Tanesha Shah February 08, 2018 17:14
[2018-02-08 17:43] LABS: ALBUMIN 3.2 GM/DL (3.4-5.0); ALKALINE PHOSPHATASE 127 U/L (45-117); ALT (GPT) 94 U/L (10-53); AST (GOT) 98 U/L (15-37); BLOOD UREA NITROGEN 13 MG/DL (7-18); CALCIUM 8.2 MG/DL (8.5-10.1); GLOMERULAR FILTRATION RATE 84 ML/MIN (>89); GLUCOSE,RANDOM 136 MG/DL (74-106); MAGNESIUM 1.8 MG/DL (1.5-2.5); SODIUM (NA) 144 MEQ/L (136-145); TOTAL BILIRUBIN ADULT 0.3 MG/DL (0.2-1.0); TOTAL PROTEIN 7.3 GM/DL (6.4-8.2)
[2018-02-08 17:44] LABS: BICARBONATE 28.2 MEQ/L (21.0-32.0); CHLORIDE 108 MEQ/L (98-107); TROPONIN I LESS THAN 0.02 NG/ML (0.02-0.05)
[2018-02-08] MEDS ORDERED: CALCIUM CARBONATE 500 MG CHEWABLE TAB CHEW ONE (18:15)
--- NOTE | 2018-02-08 18:25 | PD ---
Data Data Last Documented VS Vital Signs Date Time Temp Pulse Resp B/P (MAP) Pulse Ox O2 Delivery O2 Flow Rate FiO2 02/08/18 17:04 98 Nasal Cannula 02/08/18 17:04 3.00 02/08/18 16:08 96 24 02/08/18 15:56 98.6 194/88 (123) Orders Orders Complete Blood Count With Diff (02/08/18 16:23) Comprehensive Metabolic Panel (02/08/18:) Act Partial Throm Time (Ptt) (02/08/18:) Prothrombin Time / Inr (Pt) (02/08/18:) Magnesium (Mg) (02/08/18 16:23) Ckmb (Isoenzyme) Profile (02/08/18) Troponin I (02/08/18) Urinalysis - C+S If Indicated (02/08/18:) Iv Access Insert/Monitor (02/08/18:23) Electrocardiogram (02/08/18:) Ecg Monitoring (02/08/18) Oximetry (02/08/18:) Oxygen Administration (02/08/18:) Chest, Single Ap (02/08/18 16:23) Sodium Chloride 0.9% Flush (Ns Flush) (02/08/18 16:30) Methylprednisolone So Succ Inj (Solumedr (02/08/18 16:30) Albuterol-Ipratropium Neb (Duoneb Neb) (02/08/18 16:30) Calcium Carbonate Chew (Tums Chew) (02/08/18 18:15) Labs Laboratory Tests Test 02/08/18 16:20 White Blood Count 7.1 TH/MM3 Red Blood Count 4.44 MIL/MM3 Hemoglobin 12.4 GM/DL Hematocrit 37.3 % Mean Corpuscular Volume 84.0 FL Mean Corpuscular Hemoglobin 27.9 PG Mean Corpuscular Hemoglobin Concent 33.2 % Red Cell Distribution Width 13.9 % Platelet Count 240 TH/MM3 Mean Platelet Volume 8.1 FL Neutrophils (%) (Auto) 57.5 % Lymphocytes (%) (Auto) 27.2 % Monocytes (%) (Auto) 9.2 % Eosinophils (%) (Auto) 5.1 % Basophils (%) (Auto) 1.0 % Neutrophils # (Auto) 4.1 TH/MM3 Lymphocytes # (Auto) 1.9 TH/MM3 Monocytes # (Auto) 0.7 TH/MM3 Eosinophils # (Auto) 0.4 TH/MM3 Basophils # (Auto) 0.1 TH/MM3 CBC Comment DIFF FINAL Differential Comment Prothrombin Time 10.5 SEC Prothromb Time International Ratio 1.0 RATIO Activated Partial Thromboplast Time 27.2 SEC Blood Urea Nitrogen 13 MG/DL Creatinine 0.80 MG/DL Random Glucose 136 MG/DL Total Protein 7.3 GM/DL Albumin 3.2 GM/DL Calcium Level 8.2 MG/DL Magnesium Level 1.8 MG/DL Alkaline Phosphatase 127 U/L Aspartate Amino Transf (AST/SGOT) 98 U/L Alanine Aminotransferase (ALT/SGPT) 94 U/L Total Bilirubin 0.3 MG/DL Sodium Level 144 MEQ/L Potassium Level 3.5 MEQ/L Chloride Level 108 MEQ/L Carbon Dioxide Level 28.2 MEQ/L Anion Gap 8 MEQ/L Estimat Glomerular Filtration Rate 84 ML/MIN Total Creatine Kinase 94 U/L Troponin I LESS THAN 0.02 NG/ML MDM Supervised Visit with EVELYN: Yes Narrative Course I, Dr. Krueger, have reviewed the advance practice practitioner's documentation and am in agreement, met with the patient face to face, made the diagnosis, and the medical decision making was done by me. *My assessment and Findings: Patient is a challenging one. She comes in with dyspnea which is not new for her. She is extremely morbidly obese at 506 pounds and I do not think she breathes well on a good day. She reports history of asthma. She uses oxygen and a BiPAP machine in the evenings. Part of this is likely due to body habitus. Her chest x-ray is negative. She had a series of nebulizers which have minimal effect. Saturation on nasal cannula is 98%. Labs are reviewed. I do not think she will need hospitalization at this point but we are still observing her and will reassess Bipin Krueger MD February 08, 2018 18:25
[2018-02-08] MEDS ORDERED: DOXY100C PO (18:41)
[2018-02-08] MEDS ORDERED: PRED20 PO (18:41)
[2018-02-08 20:00] LABS: BILIRUBIN, URINE NEG (NEG); BLOOD, URINE TRACE (NEG); GLUCOSE,URINE NEG (NEG); KETONE, URINE NEG (NEG); MUCUS URINE FEW /lpf (OCC); NITRITE,URINE NEG (NEG); SQUAMOUS EPITHELIAL CELL URINE 8 /hpf (0-5); URINE COLOR YELLOW (YELLW/STRAW); URINE LEUKOCYTE ESTERASE SMALL (NEG)
--- NOTE | 2018-02-09 18:32 | EKG ---
Date Performed: 02/08/2018 Time Performed: 16:53:56 PTAGE: 33 years EKG: Sinus rhythm NONSPECIFIC T-WAVE ABNORMALITY BORDERLINE ECG PREVIOUS TRACING : 10/06/2015 00.13 Since the previous tracing, no significant change noted DOCTOR: Tennille Durant Interpretating Date/Time 02/09/2018 18:30:05
== END 2018-02-08 20:51 | disposition home or self-care (01) ==
LOC: NEPC 15:43
DX: J44.1 Chronic obstructive pulmonary disease with (acute) exacerbation (principal); E66.01 Morbid (severe) obesity due to excess calories; K21.9 Gastro-esophageal reflux disease without esophagitis; F31.9 Bipolar disorder, unspecified; Z79.899 Other long term (current) drug therapy
CPT/HCPCS: 71045; 80053; 81001; 82550; 83735; 84484; 85025; 85610; 85730; 93005; 94640; 94664; 96374; 99285; J2930

== ENCOUNTER 2018-05-15 11:39 | Inpatient (IN) ==
[2018-05-15] MEDS ORDERED: Sod Chloride 0.9% Inj 1,000 ML IV.SIG ONE (14:03)
--- NOTE | 2018-05-15 14:31 | ED ---
HPI General Chief Complaint: Fever Stated Complaint: Fever/skin complaint Time Seen by Provider: 05/15/18 13:47 Source: patient Mode of arrival: ambulatory Limitations: no limitations History of Present Illness HPI Narrative: 33 YO F with PMH of asthma, bipolar presents to the ED for evaluation of 1 month history of right posterior upper thigh pain. Pain is throbbing, rated 8/10. The patient states that she had a pimple in the area, saw her PCP and took a course of Bactrim with no improvement. She states that she was then seen at [facility] and had a needle aspiration and another round of antibiotics with no improvement of symptoms. She states that she began to have chills over the last few days. She states that she measured a fever of 100.4 by oral thermometer last night. She denies period of immobility, OC use, history of DVT, SOB, palpitations. She denies numbness, tingling, weakness, limitations to ROM of the affected extremity. She has been taking acetaminophen , last dose around 5 am today. Related Data Home Medications Medication Instructions Recorded Confirmed aripiprazole [Abilify] 30 mg PO HS 05/15/18 05/15/18 bupropion HCl 150 mg PO QAM 05/15/18 05/15/18 duloxetine [Cymbalta] 30 mg PO DAILY 05/15/18 05/15/18 fluticasone [Flonase Allergy 1 spray INTRANASAL BID 05/15/18 05/15/18 Relief] fluticasone-salmeterol [Advair 1 inh INHALATION BID 05/15/18 05/15/18 Diskus] furosemide [Lasix] 40 mg PO DAILY 05/15/18 05/15/18 hydroxyzine HCl 25 mg PO HS 05/15/18 05/15/18 ipratropium bromide 0.5 mg INHALATION Q6H 05/15/18 05/15/18 ipratropium-albuterol [Combivent 1 puff INHALATION Q4-6H PRN 05/15/18 05/15/18 Respimat] losartan 100 mg PO DAILY 05/15/18 05/15/18 montelukast [Singulair] 10 mg PO QPM 05/15/18 05/15/18 omeprazole 20 mg PO DAILY 05/15/18 05/15/18 potassium chloride [Klor-Con M20] 20 meq PO DAILY 05/15/18 05/15/18 sertraline [Zoloft] 100 mg PO DAILY 05/15/18 05/15/18 sucralfate [Carafate] 1 g PO QID 05/15/18 05/15/18 topiramate [Topamax] 50 mg PO BID 05/15/18 05/15/18 Allergies Allergy/AdvReac Type Severity Reaction Status Date / Time adhesive Allergy Severe RASH Verified 05/15/18 13:46 amoxicillin Allergy Severe VOMITING Verified 05/15/18 13:46 baclofen Allergy Severe NAUSEA Verified 05/15/18 13:46 AND VOMITING clarithromycin Allergy Severe VOMITING Verified 05/15/18 13:46 clavulanic acid Allergy Severe VOMITING Verified 05/15/18 13:46 latex Allergy Severe RASH/ITCHIN Verified 05/15/18 13:46 G methocarbamol Allergy Severe Hives Verified 05/15/18 13:46 shellfish derived Allergy Severe Hives Verified 05/15/18 13:46 Review of Systems ROS: all other systems reviewed are negative [facility] Medical History Medical History Bipolar disorder (Acute) COPD (chronic obstructive pulmonary disease) (Acute) GERD (gastroesophageal reflux disease) (Acute) Hypertension (Acute) Morbid obesity with BMI of 70 and over, adult (Acute) ACOSTA (obstructive sleep apnea) (Acute) Surgical History Surgical History Hx of adenoidectomy (Acute) Hx of cholecystectomy (Acute) S/P T&A (status post tonsillectomy and adenoidectomy) (Acute) Family History Family History Mother CAD (coronary artery disease) Other Diabetes Social History Social History Recent Travel in [facility] within the Last 8 Weeks: No Recent Out of Country Travel within the Last 8 Weeks: No Exam Narrative Exam Narrative: GENERAL: Morbidly obese white female in [facility]. SKIN: Focused skin assessment warm/dry. There is a tender area on the upper posterior right thigh. The back of the leg is erythematous, warm. No fluctuance , induration noted. Exam limited secondary to body habitus HEAD: Atraumatic. Normocephalic. EYES: Pupils equal and round. No scleral icterus. No injection or drainage. ENT: No nasal bleeding or discharge. Mucous membranes pink and moist. NECK: Trachea midline. No JVD. CARDIOVASCULAR: Regular rate and rhythm. No murmur appreciated. RESPIRATORY: No accessory muscle use. Clear to auscultation. Breath sounds equal bilaterally. GASTROINTESTINAL: Abdomen soft, non-tender, nondistended. Hepatic and splenic margins not palpable. MUSCULOSKELETAL: No obvious deformities. No clubbing. No cyanosis. No edema. Vickey sign negative bilaterally. NEUROLOGICAL: Awake and alert. No obvious cranial nerve deficits. Motor grossly within normal limits. Normal speech. PSYCHIATRIC: Appropriate mood and affect; insight and judgment normal. Course Initial Documented Vital Signs Temperature 98.4 F 05/15/18 11:52 Pulse Rate 82 05/15/18 11:52 Respiratory Rate 22 05/15/18 11:52 Blood Pressure 213/94 H 05/15/18 11:52 Pulse Oximetry 95 05/15/18 11:52 Last Documented Vital Signs Temperature 98.4 F 05/15/18 11:52 Pulse Rate 81 05/15/18 12:02 Respiratory Rate 17 05/15/18 12:02 Blood Pressure 184/86 H 05/15/18 14:06 Pulse Oximetry 96 05/15/18 12:02 Medical Decision Making [facility] Narrative Medical decision making narrative: 33 YO F with PMH of asthma, bipolar presents to the ED for evaluation of 1 month history of right posterior upper thigh pain. The patient states that she had a pimple in the area, saw her PCP and took a course of Bactrim with no improvement. She states that she was then seen at [facility] and had a needle aspiration and another round of antibiotics with no improvement of symptoms. She endorses oral of 100.4 at home today. Afebrile on presentation. Vitals reviewed. Physical Exam reveals a morbidly obese white female in no acute distress. Cellulitic changes on the right posterior thigh without evidence of abscess. Ultrasound reveals no evidence of DVT or abscess. No leukocytosis on the CBC. Blood cultures pending. Vancomycin and doxycycline were initiated. Patient's agreeable with admission. I spoke with Dr. Maher who agrees to accept the patient. See medicine notes for disposition. Medical Screen Exam Complete: Yes Emergency Medical Condition: Yes Differential Diagnosis Differential Diagnosis: cellulitis versus abscess versus failed outpatient treatment versus DVT versus other Lab Data Result diagrams: 05/15/18 14:05 05/15/18 14:05 Lab Results 05/15/18 05/15/18 Range/Units 14:05 14:05 WBC 6.1 (4.0-11.0) th/mm3 RBC 4.51 (4.00-5.30) mil/mm3 Hgb 13.3 (11.6-15.3) gm/dL Hct 38.4 (35.0-46.0) % MCV 85.2 (80.0-100.0) fL MCH 29.6 (27.0-34.0) pg MCHC 34.7 (32.0-36.0) % RDW 13.8 (11.6-17.2) % Plt Count 257 (150-450) th/mm3 MPV 8.3 (7.0-11.0) fL Neut % (Auto) 44.5 (16.0-70.0) % Lymph % (Auto) 41.5 (9.0-44.0) % Jun[place] % (Auto) 7.6 (0.0-8.0) % Eos % (Auto) 5.3 H (0.0-4.0) % Baso % (Auto) 1.1 (0.0-2.0) % Neut # (Auto) 2.7 (1.8-7.7) th/mm3 Lymph # (Auto) 2.5 (1.0-4.8) th/mm3 Jun[place] # (Auto) 0.5 (0.0-0.9) th/mm3 Eos # (Auto) 0.3 (0.0-0.4) th/mm3 Baso # (Auto) 0.1 (0.0-0.2) th/mm3 WBC Differential . Differential Comment Auto diff final Sodium 143 (136-145) meq/L Potassium 3.8 (3.5-5.1) meq/L Chloride 108 H (98-107) meq/L Carbon Dioxide 26.9 (21.0-32.0) meq/L Anion Gap 8 (5-15) meq/L BUN 10 (7-18) mg/dL Creatinine 0.85 (0.50-1.00) mg/dL Estimated GFR 78 L (>89) mL/min Random Glucose 106 (74-106) mg/dL Calcium 8.6 (8.5-10.1) mg/dL Total Bilirubin 0.4 (0.2-1.0) mg/dL AST 124 H (15-37) U/L ALT 106 H (10-53) U/L Alkaline Phosphatase 136 H (45-117) U/L Total Protein 7.6 (6.4-8.2) g/dL Albumin 3.7 (3.4-5.0) g/dL Imaging Data Radiologist's impression: Lower Extremity Ultrasound 05/15/18 14:03 CONCLUSION: 1. Subcutaneous edema. Venous Doppler Study 05/15/18 14:33 CONCLUSION: Technically Limited exam grossly negative for right leg DVT Discharge Plan Discharge Disposition Patient Disposition: 32 Still Patient Discharge Details Diagnosis: Cellulitis of right lower extremity Physicians Team ED Provider: Bipin Krueger ED Midlevel Provider: Tanesha Shah Primary Care Provider: Zay Baeza Attending Provider: Ethan Maher Discharge Interventions Interventions: Vital Signs Last Done: 05/15/18 14:06 Status ED Status: Admitted Observation Patient
[2018-05-15] MEDS ORDERED: Ketorolac Inj 30 MG/ML (IVP) Vial IV.PUSH ONE (14:33)
[2018-05-15 14:54] LABS: Baso # (Auto) 0.1 th/mm3 (0.0-0.2); Baso % (Auto) 1.1 % (0.0-2.0); Eos # (Auto) 0.3 th/mm3 (0.0-0.4); Eos % (Auto) 5.3 % (0.0-4.0); Hematocrit 38.4 % (35.0-46.0); Hemoglobin 13.3 gm/dL (11.6-15.3); Lymph # (Auto) 2.5 th/mm3 (1.0-4.8); Lymph % (Auto) 41.5 % (9.0-44.0); Mean Corpuscular HGB Conc 34.7 % (32.0-36.0); Mean Corpuscular Hemoglobin 29.6 pg (27.0-34.0); Mean Corpuscular Volume 85.2 fL (80.0-100.0); Mean Platelet Volume 8.3 fL (7.0-11.0); Mono # (Auto) 0.5 th/mm3 (0.0-0.9); Mono % (Auto) 7.6 % (0.0-8.0); Neut # (Auto) 2.7 th/mm3 (1.8-7.7); Neut % (Auto) 44.5 % (16.0-70.0); Platelet Count 257 th/mm3 (150-450); Red Blood Count 4.51 mil/mm3 (4.00-5.30); Red Cell Distribution Width 13.8 % (11.6-17.2); White Blood Count 6.1 th/mm3 (4.0-11.0)
[2018-05-15 15:03] LABS: Alanine Aminotransferase 106 U/L (10-53); Albumin 3.7 g/dL (3.4-5.0); Anion Gap 8 meq/L (5-15); Aspartate Aminotransferase 124 U/L (15-37); Blood Urea Nitrogen 10 mg/dL (7-18); Calcium 8.6 mg/dL (8.5-10.1); Carbon Dioxide 26.9 meq/L (21.0-32.0); Chloride 108 meq/L (98-107); Glomerular Filtration Rate 78 mL/min (>89); Glucose,Random 106 mg/dL (74-106); Potassium 3.8 meq/L (3.5-5.1); Sodium 143 meq/L (136-145)
[2018-05-15 15:06] LABS: Alkaline Phosphatase 136 U/L (45-117); Total Protein 7.6 g/dL (6.4-8.2)
[2018-05-15] MEDS ORDERED: Vancomycin Inj 1 GM/200 ML PIGGYBACK IV.SIG ONE (15:07)
[2018-05-15] MEDS ORDERED: Vancomycin Inj 1,000 MG in Sodium Chlor 0.9% Inj 250 ML IV.SIG ONE (15:30)
--- NOTE | 2018-05-15 15:32 | US ---
EXAM DATE: 05/15/2018 3:26 PM EDT AGE/SEX: 33 years / Female INDICATIONS: Right leg pain swelling. CLINICAL DATA: This is the patient's initial encounter. Patient reports that signs and symptoms have been present for 1 month and indicates a pain score of 5/10. MEDICAL/SURGICAL HISTORY: Asthma. Bipolar disorder. Morbid obesity. None. COMPARISON: [facility] [place], [place] LEG SOFT TISSUE RIGHT, 05/15/2018. . TECHNIQUE: Venous ultrasound of both lower extremities was performed from the inguinal ligament to t he proximal calf. Real-time, color Doppler and spectral tracing, compression and augmentation techni ques were used. FINDINGS: Limited study secondary to poor visualization in portions of the leg secondary to body hab itus. Where visualized, the vessels demonstrate normal compression of the deep venous system from the inguinal region to the proximal calf. No echogenic clot is seen. CONCLUSION: Technically Limited exam grossly negative for right leg DVT Electronically signed by: Nain Fried MD 05/15/2018 3:31 PM EDT
--- NOTE | 2018-05-15 15:38 | US ---
EXAM DATE: 05/15/2018 3:33 PM EDT AGE/SEX: 33 years / Female INDICATIONS: Right leg pain, swelling and redness. CLINICAL DATA: This is the patient's initial encounter. Patient reports that signs and symptoms have been present for 1 month and indicates a pain score of 5/10. MEDICAL/SURGICAL HISTORY: Asthma. Bipolar disorder. Morbid obesity. None. COMPARISON: No prior exams available for comparison. FINDINGS: Sonographic evaluation of the soft tissues of the posterior thigh on the right performed. These show subcutaneous edema. No fluid collection observed. CONCLUSION: 1. Subcutaneous edema. Electronically signed by: Eloy Mccall MD 05/15/2018 3:37 PM EDT
--- NOTE | 2018-05-15 16:33 | P.HP ---
History of Present Illness Primary Care Physician: Zay Baeza Chief Complaint: Right tigh pain and fever History of Present Illness: This is a pleasant 33 y/o Female with COPD, Bipolar disorder, who came to ER with one month history of right posterior upper thigh pain, Sharp pain, 8/10 in intensity, The patient states that she had a pimple in the area, saw her PCP and took a course of Bactrim with no improvement. She states that she was then seen at [facility] and had a needle aspiration and another round of antibiotics with no improvement of symptoms. She states that she began to have chills over the last few days. She states that she measured a fever of 100.4 by oral thermometer last night. She denies numbness, tingling, weakness, limitations to ROM of the affected extremity. She has been taking acetaminophen, last dose around 5 am today. She has Hypertension, GERD, Morbid obesity, Seen in Emergency room confirm the story evaluated. Review of Systems All other systems reviewed negative except as stated in HPI PMFSH - History History Provided By: Patient - Medical History Medical History: Medical History (Last Updated 05/15/18 @ 16:47 by Etahn Maher MD) Bipolar disorder COPD (chronic obstructive pulmonary disease) GERD (gastroesophageal reflux disease) Hypertension Morbid obesity with BMI of 70 and over, adult ACOSTA (obstructive sleep apnea) - Surgical History Surgical History: Surgical History (Last Updated 05/15/18 @ 16:48 by Ethan Maher MD) Hx of adenoidectomy Hx of cholecystectomy S/P T&A (status post tonsillectomy and adenoidectomy) - Family History Family History: Family History (Last Updated 05/15/18 @ 16:50 by Ethan Maher MD) Mother CAD (coronary artery disease) Other Diabetes - Travel History Recent Travel in the [place] Within the Last 8 Weeks: No Recent Travel Out of the Country Within the Last 8 Weeks: No Medications and Allergies Active Medications: Active Medications Vancomycin HCl 1,000 mg/ (Sodium Chloride) 250 mls @ 200 mls/hr IV.SIG ONCE ONE Stop: 05/15/18 16:44 Last Admin: 05/15/18 15:42 Dose: Not Given Sodium Chloride (Ns Flush) 2 ml IV.FLUSH PRN PRN PRN Reason: FLUSH AFTER USING IV ACCESS Allergies Allergy/AdvReac Type Severity Reaction Status Date / Time adhesive Allergy Severe RASH Verified 05/15/18 13:46 amoxicillin Allergy Severe VOMITING Verified 05/15/18 13:46 baclofen Allergy Severe NAUSEA Verified 05/15/18 13:46 AND VOMITING clarithromycin Allergy Severe VOMITING Verified 05/15/18 13:46 clavulanic acid Allergy Severe VOMITING Verified 05/15/18 13:46 latex Allergy Severe RASH/ITCHIN Verified 05/15/18 13:46 G methocarbamol Allergy Severe Hives Verified 05/15/18 13:46 shellfish derived Allergy Severe Hives Verified 05/15/18 13:46 Home Medications Medication Instructions Recorded Confirmed Type aripiprazole [Abilify] 30 mg PO HS 05/15/18 05/15/18 History bupropion HCl 150 mg PO QAM 05/15/18 05/15/18 History duloxetine [Cymbalta] 30 mg PO DAILY 05/15/18 05/15/18 History fluticasone [Flonase Allergy 1 spray INTRANASAL BID 05/15/18 05/15/18 History Relief] fluticasone-salmeterol [Advair 1 inh INHALATION BID 05/15/18 05/15/18 History Diskus] furosemide [Lasix] 40 mg PO DAILY 05/15/18 05/15/18 History hydroxyzine HCl 25 mg PO HS 05/15/18 05/15/18 History ipratropium bromide 0.5 mg INHALATION Q6H 05/15/18 05/15/18 History ipratropium-albuterol [Combivent 1 puff INHALATION Q4-6H PRN 05/15/18 05/15/18 History Respimat] losartan 100 mg PO DAILY 05/15/18 05/15/18 History montelukast [Singulair] 10 mg PO QPM 05/15/18 05/15/18 History omeprazole 20 mg PO DAILY 05/15/18 05/15/18 History potassium chloride [Klor-Con M20] 20 meq PO DAILY 05/15/18 05/15/18 History sertraline [Zoloft] 100 mg PO DAILY 05/15/18 05/15/18 History sucralfate [Carafate] 1 g PO QID 05/15/18 05/15/18 History topiramate [Topamax] 50 mg PO BID 05/15/18 05/15/18 History Exam Vital signs: Vital Signs 05/15/18 11:52 05/15/18 12:02 05/15/18 14:06 Temperature 98.4 F Pulse Rate 82 81 Respiratory Rate 22 17 Blood Pressure 213/94 H 207/93 H 184/86 H Pulse Oximetry 95 96 Intake & Output 05/14/18 05/15/18 05/15/18 18:59 06:59 18:59 Intake Total 0 / 0 Balance 0 / 0 Weight 226.796 kg Intake: IV 0 / 0 Narrative: GENERAL: Morbidly obese white female in [place]. SKIN: Erythema and edema on the posterior area of the thigh. indurated. warm. No fluctuance. HEAD: Atraumatic. Normocephalic. EYES: Pupils equal and round. No scleral icterus. No injection or drainage. ENT: No nasal bleeding or discharge. Mucous membranes pink and moist. NECK: Trachea midline. No JVD. CARDIOVASCULAR: Regular rate and rhythm. No murmur appreciated. RESPIRATORY: No accessory muscle use. Clear to auscultation. Breath sounds equal bilaterally. GASTROINTESTINAL: Abdomen soft, non-tender, nondistended. Hepatic and splenic margins not palpable. MUSCULOSKELETAL: No obvious deformities. No clubbing. No cyanosis. No edema. Vickey sign negative bilaterally. NEUROLOGICAL: Awake and alert. No obvious cranial nerve deficits. Motor grossly within normal limits. Normal speech. PSYCHIATRIC: Appropriate mood and affect; insight and judgment normal. Results - Labs CBC & Chem 7: 05/15/18 14:05 05/15/18 14:05 Labs: Laboratory Results - last 24 hr 05/15/18 05/15/18 14:05 14:05 WBC 6.1 RBC 4.51 Hgb 13.3 Hct 38.4 MCV 85.2 MCH 29.6 MCHC 34.7 RDW 13.8 Plt Count 257 MPV 8.3 Neut % (Auto) 44.5 Lymph % (Auto) 41.5 Gregory % (Auto) 7.6 Eos % (Auto) 5.3 H Baso % (Auto) 1.1 Neut # (Auto) 2.7 Lymph # (Auto) 2.5 Gregory # (Auto) 0.5 Eos # (Auto) 0.3 Baso # (Auto) 0.1 WBC Differential . Differential Comment Auto diff final Sodium 143 Potassium 3.8 Chloride 108 H Carbon Dioxide 26.9 Anion Gap 8 BUN 10 Creatinine 0.85 Estimated GFR 78 L Random Glucose 106 Calcium 8.6 Total Bilirubin 0.4 AST 124 H ALT 106 H Alkaline Phosphatase 136 H Total Protein 7.6 Albumin 3.7 - Imaging Impressions Lower Extremity Ultrasound 05/15/18 14:03 CONCLUSION: 1. Subcutaneous edema. Venous Doppler Study 05/15/18 14:33 CONCLUSION: Technically Limited exam grossly negative for right leg DVT Caprini VTE Risk Assessment Caprini VTE Risk Assessment: Moderate/High Risk (score >= 2) Caprini Risk Assessment Model: Point Value = 1 Point Value = 2 Point Value = 3 Point Value = 5 Age 41-60 Minor surgery BMI > 25 kg/m2 Swollen legs Varicose veins or History of unexplained or recurrent spontaneous Oral contraceptives or hormone replacement Sepsis (< 1 month) Serious lung disease, including pneumonia (< 1 month) Abnormal pulmonary function Acute myocardial infarction Congestive heart failure (< 1 month) History of inflammatory bowel disease Medical patient at bed rest Age 61-74 Arthroscopic surgery Major open surgery (> 45 min) Laparoscopic surgery (> 45 min) Malignancy Confined to bed (> 72 hours) Immobilizing plaster cast Central venous access Age >= 75 History of VTE Family history of VTE Factor V Leiden Prothrombin [id number] Lupus anticoagulant Anticardiolipin antibodies Elevated serum homocysteine Heparin-induced thrombocytopenia Other congenital or acquired thrombophilia Stroke (< 1 month) Elective arthroplasty Hip, pelvis, or leg fracture Acute spinal cord injury (< 1 month) Prophylaxis Regimen: Total Risk Factor Score Risk Level Prophylaxis Regimen 0-1 Low Early ambulation 2 Moderate Order ONE of the following: *Sequential Compression Device (SCD) *Heparin 5000 units SQ BID 3-4 Higher Order ONE of the following medications: *Heparin 5000 units SQ TID *Enoxaparin/Lovenox 40 mg SQ daily (WT < 150 kg, CrCl > 30 mL/min) *Enoxaparin/Lovenox 30 mg SQ daily (WT < 150 kg, CrCl > 10-29 mL/min) *Enoxaparin/Lovenox 30 mg SQ BID (WT < 150 kg, CrCl > 30 mL/min) AND/OR *Sequential Compression Device (SCD) 5 or more Highest Order ONE of the following medications: *Heparin 5000 units SQ TID (Preferred with Epidurals) *Enoxaparin/Lovenox 40 mg SQ daily (WT < 150 kg, CrCl > 30 mL/min) *Enoxaparin/Lovenox 30 mg SQ daily (WT < 150 kg, CrCl > 10-29 mL/min) *Enoxaparin/Lovenox 30 mg SQ BID (WT < 150 kg, CrCl > 30 mL/min) AND *Sequential Compression Device (SCD) Assessment and Plan - Plan 1. Right Thigh Cellulitis, she is allergic to penicillin will continue Levofloxacin and try to switch to by mouth in the next 24 to 48 hours and discharge home. was ruled out DVT right venous doppler no pathology 2. Morbid obesity strongly recommended diet and exercise, weight loss warranted 3. Hypertension controlled continue home medicines 4. COPD non exacerbated continue Bronchodilator, Mucolytic and Incentive spirometry 5. Obstructive Sleep apnea on BiPAP asked for RT evaluation for BiPAP 6. GERD on gastric protection 7. Bipolar disorder continue Home medicines. 8. chronic respiratory failure the patient uses oxygen at home 3L/min when gets activity and at night. DVT prophylaxis with Lovenox. Code Status: Full Code Discussed Condition With: Patient and ER PA Discharge Planning: expected in one to two days.
[2018-05-15] MEDS ORDERED: Temazepam 15 MG Capsule PO PRN (17:00)
[2018-05-15] MEDS ORDERED: Acetaminophen 325 MG Tablet PO PRN (17:00)
[2018-05-15] MEDS ORDERED: Bisacodyl 10 MG Supp RECTAL PRN (17:00)
[2018-05-15] MEDS: Enoxaparin Inj 40 MG/0.4 ML Syringe SQ SCH ×2 (17:53→18:45)
[2018-05-15] MEDS: Sod Chloride 0.9% Inj 1,000 ML IV.CONT SCH (18:31)
[2018-05-15] MEDS: Sucralfate 1 GM Tablet PO SCH ×2 (18:38→21:25)
[2018-05-15 19:01] LABS: Bacteria,Urine Few /hpf; Bilirubin,Urine Negative (Negative); Clarity,Urine Hazy (Clear); Color,Urine Yellow (Yellw/Straw); Glucose,Urine (UA) Negative (Negative); Hyaline Casts,Urine 4 /lpf (0-3); Leukocyte Esterase,Urine Negative (Negative); Mucus,Urine Few /lpf (Occasional); Nitrite,Urine Negative (Negative); Specific Gravity,Urine 1.023 (1.002-1.035); Squamous Epithelial Cell,Urine 5 /hpf (0-5)
[2018-05-15] MEDS: Montelukast 10 MG Tablet PO SCH (21:25)
[2018-05-15] MEDS: Senna/Docusate Sodium 8.6/50 MG Tablet PO SCH (21:25)
[2018-05-15] MEDS: Topiramate 25 MG Tablet PO SCH (21:38)
[2018-05-15] MEDS: buPROPion 150 MG 12 HR Tablet PO SCH (21:38)
[2018-05-15] MEDS: Budesonide-Formoterol 160/4.5 MCG 6 GM Inhaler INH SCH (22:25)
[2018-05-16] MEDS: Sod Chloride 0.9% Inj 1,000 ML IV.CONT SCH ×2 (03:11→12:53)
[2018-05-16] MEDS: Pantoprazole Sodium 20 MG DR Tablet PO SCH (08:42)
[2018-05-16] MEDS: Sertraline 100 MG Tablet PO SCH (08:42)
[2018-05-16] MEDS: buPROPion 150 MG 12 HR Tablet PO SCH (08:42)
[2018-05-16] MEDS: Senna/Docusate Sodium 8.6/50 MG Tablet PO SCH ×2 (08:42→21:32)
[2018-05-16] MEDS: Furosemide 40 MG Tablet PO SCH (08:43)
[2018-05-16] MEDS: Sucralfate 1 GM Tablet PO SCH ×4 (08:43→21:32)
[2018-05-16] MEDS: Topiramate 25 MG Tablet PO SCH ×2 (08:43→21:33)
--- NOTE | 2018-05-16 08:57 | P.PN ---
Subjective Interval history: This is a pleasant 33 y/o Female with COPD, Bipolar disorder, who came to ER with one month history of right posterior upper thigh pain, Sharp pain, 8/10 in intensity, The patient states that she had a pimple in the area, saw her PCP and took a course of Bactrim with no improvement. She states that she was then seen at [facility] and had a needle aspiration and another round of antibiotics with no improvement of symptoms. She states that she began to have chills over the last few days. She states that she measured a fever of 100.4 by oral thermometer last night. She denies numbness, tingling, weakness, limitations to ROM of the affected extremity. She has been taking acetaminophen, last dose around 5 am today. She has Hypertension, GERD, Morbid obesity, Seen in Emergency room confirm the story evaluated. 05/16: Seen in her bedroom, improving cellulitis, but found blood culture positive for gram positive cocci added Vancomycin and consulted ID specialist, patient improving clinically, no nausea, vomit or diarrhea. Physical Exam Vital signs: Vital Signs 05/15/18 11:52 05/15/18 12:02 05/15/18 14:06 Temperature 98.4 F Pulse Rate 82 81 Respiratory Rate 22 17 Blood Pressure 213/94 H 207/93 H 184/86 H Pulse Oximetry 95 96 05/15/18 18:10 05/15/18 18:51 05/15/18 20:00 Temperature 97.9 F Pulse Rate 94 H 81 Respiratory Rate 20 Blood Pressure 137/67 Pulse Oximetry 94 L 94 L 94 L 05/15/18 20:54 05/15/18 22:20 05/16/18 00:42 Temperature 96.9 F L Pulse Rate 94 H 71 Respiratory Rate 20 20 Blood Pressure 176/104 H Pulse Oximetry 95 95 97 05/16/18 01:19 05/16/18 03:22 05/16/18 04:50 Temperature 97.4 F L Pulse Rate 70 67 Respiratory Rate 17 17 20 Blood Pressure 176/91 H Pulse Oximetry 97 05/16/18 08:00 05/16/18 08:16 05/16/18 08:17 Temperature 97.7 F Pulse Rate 64 68 Respiratory Rate 18 17 Blood Pressure 135/73 Pulse Oximetry 98 97 Intake & Output 05/15/18 05/16/18 05/16/18 18:59 06:59 18:59 Intake Total 240 / 240 2350 / 2350 Balance 240 / 240 2350 / 2350 Weight 226.796 kg 226.796 kg Intake: IV 0 / 0 2350 / 2350 NS Inj 1,000 ML @ 100 mls/hr IV 900 / 900 .CONT .Q10H DAVE Rx#:[id number] Doxy 100 Inj 100 MG In NS Inj 100 / 100 100 ML @ 100 mls/hr IV.SIG ONCE ONE Rx#:[id number] Levaquin 750 mg Premix Inj 150 150 / 150 ML @ 100 mls/hr IV.SIG Q24H DAVE Rx#:[id number] NS Inj 1,000 ML @ Wide Open IV. 1000 / 1000 SIG BOLUS ONE Rx#:[id number] Oral 240 / 240 Other: Weight On Admission 226.796 kg Narrative: GENERAL: Morbidly obese white female in NAD. SKIN: Improving erythema and edema on right posterior thigh area. HEAD: Atraumatic. Normocephalic. EYES: Pupils equal and round. No scleral icterus. No injection or drainage. ENT: No nasal bleeding or discharge. Mucous membranes pink and moist. NECK: Trachea midline. No JVD. CARDIOVASCULAR: Regular rate and rhythm. No murmur appreciated. RESPIRATORY: No accessory muscle use. Clear to auscultation. Breath sounds equal bilaterally. GASTROINTESTINAL: Abdomen soft, non-tender, nondistended. Hepatic and splenic margins not palpable. MUSCULOSKELETAL: No obvious deformities. No clubbing. No cyanosis. edema on Right posterior thigh area improving. NEUROLOGICAL: Awake and alert. No obvious cranial nerve deficits. Motor grossly within normal limits. Normal speech. PSYCHIATRIC: Appropriate mood and affect; insight and judgment normal. Results - Labs CBC & Chem 7: 05/15/18 14:05 05/15/18 14:05 Laboratory Results - last 24 hr 05/15/18 05/15/18 05/15/18 14:05 14:05 17:40 WBC 6.1 RBC 4.51 Hgb 13.3 Hct 38.4 MCV 85.2 MCH 29.6 MCHC 34.7 RDW 13.8 Plt Count 257 MPV 8.3 Neut % (Auto) 44.5 Lymph % (Auto) 41.5 [place] % (Auto) 7.6 Eos % (Auto) 5.3 H Baso % (Auto) 1.1 Neut # (Auto) 2.7 Lymph # (Auto) 2.5 [place] # (Auto) 0.5 Eos # (Auto) 0.3 Baso # (Auto) 0.1 WBC Differential . Differential Comment Auto diff final Sodium 143 Potassium 3.8 Chloride 108 H Carbon Dioxide 26.9 Anion Gap 8 BUN 10 Creatinine 0.85 Estimated GFR 78 L Random Glucose 106 Calcium 8.6 Total Bilirubin 0.4 AST 124 H ALT 106 H Alkaline Phosphatase 136 H Total Protein 7.6 Albumin 3.7 Urine Color Yellow Urine Clarity Hazy H Urine pH 5.0 Ur Specific [place] 1.023 Urine Protein Negative Urine Glucose (UA) Negative Urine Ketones Negative Urine Occult Blood Negative Urine Nitrate Negative Urine Bilirubin Negative Urine Urobilinogen Less than 2 Ur Leukocyte Esterase Negative Urine RBC Less than 1 Urine WBC 4 Ur Squamous Epith Cells 5 Urine Bacteria Few H Hyaline Casts 4 Urine Mucus Few H Micro UA Comment Culture not ind Urine Culture Comments Culture not ind Microbiology 05/15/18 14:20 Blood - Peripheral Anaerobic Blood Culture - Preliminary gram positive cocci 05/15/18 14:05 Blood - Peripheral Aerobic Blood Culture - Preliminary gram positive cocci - Imaging Impressions Lower Extremity Ultrasound 05/15/18 14:03 CONCLUSION: 1. Subcutaneous edema. Venous Doppler Study 05/15/18 14:33 CONCLUSION: Technically Limited exam grossly negative for right leg DVT Assessment and Plan - Plan 1. Right Thigh Cellulitis, she is allergic to penicillin will continue Levofloxacin IV was ruled out DVT right venous doppler no pathology, found bacteremia secondary to Gram positive cocci asked for ID specialist consult and added Vancomycin admitted to [facility]. 2. Morbid obesity strongly recommended diet and exercise, weight loss warranted 3. Hypertension controlled continue home medicines 4. COPD non exacerbated continue Bronchodilator, Mucolytic and Incentive spirometry 5. Obstructive Sleep apnea on BiPAP asked for RT evaluation for BiPAP 6. GERD on gastric protection 7. Bipolar disorder continue Home medicines. 8. chronic respiratory failure the patient uses oxygen at home 3L/min when gets activity and at night. DVT prophylaxis with Lovenox. Code Status: Full code. Discussed Condition With: Patient and nurse. Discharge Planning: expected in one to two days.
[2018-05-16] MEDS: Budesonide-Formoterol 160/4.5 MCG 6 GM Inhaler INH SCH ×2 (09:25→21:27)
[2018-05-16] MEDS ORDERED: Vancomycin Consult Pharmacy 1 EACH OTHER SCH (09:54)
[2018-05-16] MEDS ORDERED: Vancomycin Inj 2,000 MG in Sodium Chlor 0.9% Inj 500 ML IV.SIG ONE (15:00)
--- NOTE | 2018-05-16 17:41 | P.CONID ---
History of Present Illness Service: ID Consult date: 05/16/18 Requesting Physician: Ethan Maher Reason for Consult: bacteremia Primary Care Provider: Zay Baeza Chief Complaint: Right tigh pain and fever History of Present Illness: Morbidly obese 33 yofemale presented with few days of worsening R posterior thigh pain and fever, chills no fever WBC within normal No lactic acidosis Blood clx with strep 2/2 Started on abx , her symproms improved somewhat DUe to weight very limited radiological options, limited US showed no fluid collection Review of Systems All other systems reviewed negative except as stated in HPI PMFSH - History History Provided By: Patient - Medical History Medical History: Medical History (Last Reviewed 05/17/18 @ 06:19 by Chrisitne Johnson MD) Bipolar disorder COPD (chronic obstructive pulmonary disease) GERD (gastroesophageal reflux disease) Hypertension Morbid obesity with BMI of 70 and over, adult ACOSTA (obstructive sleep apnea) - Surgical History Surgical History: Surgical History (Last Reviewed 05/17/18 @ 06:20 by Christine Johnson MD) Hx of adenoidectomy Hx of cholecystectomy S/P T&A (status post tonsillectomy and adenoidectomy) - Family History Family History: Family History (Last Reviewed 05/17/18 @ 06:20 by Christine Johnson MD) Mother CAD (coronary artery disease) Other Diabetes - Social History I have reviewed the patient's Social History: Yes - Tobacco History Second Hand Smoke Exposure: No Smoking Status: Never smoker - Alcohol History How Often Do You Have a Drink Containing Alcohol: Never - Substance Use History Substance History: No History of Abuse - Travel History Recent Travel in the [place] Within the Last 8 Weeks: No Recent Travel Out of the Country Within the Last 8 Weeks: No - Immunization History Tetanus Immunization: Unable to Assess Hx Influenza Vaccine This Season: Unable to Assess Medications and Allergies Active Medications: Active Medications Acetaminophen (Tylenol) 650 mg PO Q4H PRN PRN Reason: Temp > 100.4 Al Hydroxide/Mg Hydroxide (Milk Of Magnesia Liq) 30 ml PO Q12H PRN PRN Reason: Mild Constipation Albuterol (Ventolin Hfa Inh) 1 puff INH Q6H PRN PRN Reason: SHORTNESS OF BREATH Aripiprazole (Abilify) 30 mg PO HS DAVE Last Admin: 05/15/18 21:59 Dose: 30 mg Bisacodyl (Dulcolax Supp) 10 mg RECTAL DAILY PRN PRN Reason: SEVERE CONSITIPATION Budesonide/Formoterol Fumarate (Symbicort 160/4.5 Mcg Inh) 2 puff INH BID [facility] Last Admin: 05/16/18 09:25 Dose: 2 puff Bupropion HCl (Wellbutrin Sr) 150 mg PO DAILY [facility] Last Admin: 05/16/18 08:42 Dose: 150 mg Duloxetine HCl (Cymbalta) 30 mg PO DAILY [facility] Last Admin: 05/16/18 08:43 Dose: 30 mg Enoxaparin Sodium (Lovenox Inj) 40 mg SQ Q24H [facility] Last Admin: 05/15/18 18:45 Dose: Not Given Fluticasone Propionate (Flonase Nasal [place]) 1 spray EACH NARE BID [facility] Last Admin: 05/16/18 08:44 Dose: 1 spray Furosemide (Lasix) 40 mg PO DAILY [facility] Last Admin: 05/16/18 08:43 Dose: 40 mg Hydroxyzine HCl (Atarax) 25 mg PO HS [facility] Last Admin: 05/15/18 21:37 Dose: 25 mg Sodium Chloride (Ns Inj) 1,000 mls @ 100 mls/hr IV.CONT .Q10H [facility] Last Admin: 05/16/18 12:53 Dose: 100 mls/hr Levofloxacin/Dextrose (Levaquin 750 Mg Premix Inj) 150 mls @ 100 mls/hr IV.SIG Q24H [facility] Last Infusion: 05/15/18 20:16 Dose: Infused Pharmacy Profile Note (Vancomycin Consult Pharmacy) 0 mls @ 0 mls/hr [facility] Vancomycin HCl 1,500 mg/ (Sodium Chloride) 515 mls @ 250 mls/hr IV.SIG Q12H ONE Stop: 05/17/18 05:03 Ipratropium Marcus (Atrovent Neb) 0.5 mg NEB Q6HR NEB [facility] Last Admin: 05/16/18 15:05 Dose: 0.5 mg Lactulose (Lactulose Liq) 30 ml PO DAILY PRN PRN Reason: SEVERE CONSITIPATION Losartan Potassium (Cozaar) 100 mg PO DAILY [facility] Last Admin: 05/16/18 08:43 Dose: 100 mg Miscellaneous Information ([facility] Ordered Lab Info) 0 each OTHER ONCE ONE Stop: 05/18/18 02:46 Montelukast Sodium (Singulair) 10 mg PO HS [facility] Last Admin: 05/15/18 21:25 Dose: 10 mg Ondansetron HCl (Zofran Inj) 4 mg IV.PUSH Q6H PRN PRN Reason: NAUSEA OR VOMITING Last Admin: 05/16/18 16:28 Dose: 4 mg Oxycodone HCl (Roxicodone) 10 mg PO Q4H PRN PRN Reason: PAIN SCALE 6 TO 10 Last Admin: 05/16/18 12:52 Dose: 10 mg Pantoprazole Sodium (Protonix) 20 mg PO DAILY [facility] Last Admin: 05/16/18 08:42 Dose: 20 mg Potassium Chloride (K-Dur) 20 meq PO DAILY [facility] Last Admin: 05/16/18 08:42 Dose: 20 meq Senna/Docusate Sodium (Marielos-Colace) 1 tab PO BID [facility] Last Admin: 05/16/18 08:42 Dose: 1 tab Sennosides (Senokot) 17.2 mg PO Q12H PRN PRN Reason: Moderate Constipation Sertraline HCl (Zoloft) 100 mg PO DAILY [facility] Last Admin: 05/16/18 08:42 Dose: 100 mg Sodium Chloride (Ns Flush) 2 ml IV.FLUSH PRN PRN PRN Reason: FLUSH AFTER USING IV ACCESS Last Admin: 05/16/18 16:28 Dose: 2 ml Sucralfate (Carafate) 1 gm PO QID [facility] Last Admin: 05/16/18 12:52 Dose: 1 gm Temazepam (Restoril) 15 mg PO HS PRN PRN Reason: INSOMNIA Topiramate (Topamax) 50 mg PO BID [facility] Last Admin: 05/16/18 08:43 Dose: 50 mg Allergies Allergy/AdvReac Type Severity Reaction Status Date / Time adhesive Allergy Severe RASH Verified 06/19/18 20:36 amoxicillin Allergy Severe VOMITING Verified 06/19/18 20:36 baclofen Allergy Severe NAUSEA Verified 06/19/18 20:36 AND VOMITING clarithromycin Allergy Severe VOMITING Verified 06/19/18 20:36 clavulanic acid Allergy Severe VOMITING Verified 06/19/18 20:36 latex Allergy Severe RASH/ITCHIN Verified 06/19/18 20:36 G methocarbamol Allergy Severe Hives Verified 06/19/18 20:36 shellfish derived Allergy Severe Hives Verified 06/19/18 20:36 Home Medications Medication Instructions Recorded Confirmed Type aripiprazole [Abilify] 30 mg PO HS 05/15/18 06/19/18 History bupropion HCl 150 mg PO QAM 05/15/18 06/19/18 History duloxetine [Cymbalta] 30 mg PO DAILY 05/15/18 06/19/18 History fluticasone [Flonase Allergy 1 spray INTRANASAL BID 05/15/18 06/19/18 History Relief] fluticasone-salmeterol [Advair 1 inh INHALATION BID 05/15/18 06/19/18 History Diskus] furosemide [Lasix] 40 mg PO DAILY 05/15/18 06/19/18 History hydroxyzine HCl 25 mg PO HS 05/15/18 06/19/18 History ipratropium bromide 0.5 mg INHALATION Q6H 05/15/18 06/19/18 History ipratropium-albuterol [Combivent 1 puff INHALATION Q4-6H PRN 05/15/18 06/19/18 History Respimat] losartan 100 mg PO DAILY 05/15/18 06/19/18 History montelukast [Singulair] 10 mg PO QPM 05/15/18 06/19/18 History omeprazole 20 mg PO DAILY 05/15/18 06/19/18 History potassium chloride [Klor-Con M20] 20 meq PO DAILY 05/15/18 06/19/18 History sertraline [Zoloft] 100 mg PO DAILY 05/15/18 06/19/18 History sucralfate [Carafate] 1 g PO QID 05/15/18 06/19/18 History topiramate [Topamax] 50 mg PO BID 05/15/18 06/19/18 History Exam Vital signs: Vital Signs 05/15/18 18:10 05/15/18 18:51 05/15/18 20:00 Temperature 97.9 F Pulse Rate 94 H 81 Respiratory Rate 20 Blood Pressure 137/67 Pulse Oximetry 94 L 94 L 94 L 05/15/18 20:54 05/15/18 22:20 05/16/18 00:42 Temperature 96.9 F L Pulse Rate 94 H 71 Respiratory Rate 20 20 Blood Pressure 176/104 H Pulse Oximetry 95 95 97 05/16/18 01:19 05/16/18 03:22 05/16/18 04:50 Temperature 97.4 F L Pulse Rate 70 67 Respiratory Rate 17 17 20 Blood Pressure 176/91 H Pulse Oximetry 97 05/16/18 08:00 05/16/18 08:09 05/16/18 08:16 Temperature 97.7 F Pulse Rate 64 67 68 Respiratory Rate 18 17 Blood Pressure 135/73 Pulse Oximetry 98 05/16/18 08:17 05/16/18 12:00 05/16/18 12:19 Temperature 97.5 F L Pulse Rate 82 76 Respiratory Rate 14 Blood Pressure 144/77 H Pulse Oximetry 97 89 L 05/16/18 16:03 Temperature Pulse Rate 75 Respiratory Rate Blood Pressure Pulse Oximetry Intake & Output 05/15/18 05/16/18 05/16/18 18:59 06:59 18:59 Intake Total 240 / 240 2350 / 2350 1000 / 1000 Balance 240 / 240 2350 / 2350 1000 / 1000 Weight 226.796 kg 226.796 kg Intake: IV 0 / 0 2350 / 2350 1000 / 1000 NS Inj 1,000 ML @ 100 mls/hr IV 900 / 900 1000 / 1000 .CONT .Q10H [facility] Rx#:[id number] Doxy 100 Inj 100 MG In NS Inj 100 / 100 100 ML @ 100 mls/hr IV.SIG ONCE ONE Rx#:[id number] Levaquin 750 mg Premix Inj 150 150 / 150 ML @ 100 mls/hr IV.SIG Q24H [facility]AVE Rx#:[id number] NS Inj 1,000 ML @ Wide Open IV. 1000 / 1000 SIG BOLUS ONE Rx#:[id number] Oral 240 / 240 Other: # Voids 1 # Bowel Movements 1 Weight On Admission 226.796 kg - Constitutional no acute distress, morbidly obese - Routine HEENT Exam Head: Present: normocephalic, atraumatic Eye: Present: EOMI, PERRL ENT: Present: mucous membranes moist, oropharynx clear Comments: edentulous - Routine Neck Exam Present: supple, full ROM - Routine Respiratory Exam Present: decreased breath sounds, CTA bilaterally - Routine Cardiovascular Exam Present: RRR, S1, S2 Comments: no murmurs - Routine Abdominal Exam Present: soft, normoactive bowel sounds Comments: due to extreme obesity palpation of internal organs is limited Abdomen is not tender - Routine Skin Exam Present: intact, dry, warm Comments: mild area of erytheam, induration but no open or fluctuant lesions on posterior R thigh It is quite tender to palpation - Routine Neurological Exam Present: alert, oriented X3, CN II-XII intact, moving all extremities, vision grossly intact, hearing grossly intact, normal speech - Routine Psychiatric Exam Present: normal affect, normal thought process, cooperative Results - Labs CBC & Chem 7: 05/19/18 06:44 05/19/18 06:44 Labs: Laboratory Results - last 24 hr 05/15/18 17:40 Urine Color Yellow Urine Clarity Hazy H Urine pH 5.0 Ur Specific [place] 1.023 Urine Protein Negative Urine Glucose (UA) Negative Urine Ketones Negative Urine Occult Blood Negative Urine Nitrate Negative Urine Bilirubin Negative Urine Urobilinogen Less than 2 Ur Leukocyte Esterase Negative Urine RBC Less than 1 Urine WBC 4 Ur Squamous Epith Cells 5 Urine Bacteria Few H Hyaline Casts 4 Urine Mucus Few H Micro UA Comment Culture not ind Urine Culture Comments Culture not ind - Imaging Lower Extremity Ultrasound 05/15/18 14:03 CONCLUSION: 1. Subcutaneous edema. Venous Doppler Study 05/15/18 14:33 CONCLUSION: Technically Limited exam grossly negative for right leg DVT Assessment and Plan - Plan Morbid obesity R posterior thigh cellulitis Can not exclude deeper infection Strep bacteremia - ? significance will need to follow D on both isolates Multiple abx allergies severely limit choices Cont vancomycin, keep trough 10-15 dc levaquin Further rec's to follow
[2018-05-16] MEDS: Enoxaparin Inj 40 MG/0.4 ML Syringe SQ SCH (18:33)
[2018-05-16] MEDS: Montelukast 10 MG Tablet PO SCH (21:32)
[2018-05-17] MEDS ORDERED: Vancomycin Inj 1,500 MG in Sodium Chlor 0.9% Inj 500 ML IV.SIG ONE (03:00)
[2018-05-17] MEDS: Sod Chloride 0.9% Inj 1,000 ML IV.CONT SCH ×3 (03:10→18:11)
[2018-05-17] MEDS: Furosemide 40 MG Tablet PO SCH (08:23)
[2018-05-17] MEDS: Sucralfate 1 GM Tablet PO SCH ×4 (08:24→22:46)
[2018-05-17] MEDS: Pantoprazole Sodium 20 MG DR Tablet PO SCH (08:24)
[2018-05-17] MEDS: Topiramate 25 MG Tablet PO SCH ×2 (08:24→22:46)
[2018-05-17] MEDS: Senna/Docusate Sodium 8.6/50 MG Tablet PO SCH ×2 (08:25→22:46)
[2018-05-17] MEDS: buPROPion 150 MG 12 HR Tablet PO SCH (08:25)
[2018-05-17] MEDS: Sertraline 100 MG Tablet PO SCH (08:25)
[2018-05-17] MEDS: Budesonide-Formoterol 160/4.5 MCG 6 GM Inhaler INH SCH ×2 (08:26→23:36)
[2018-05-17 13:00] LABS: Calcium 8.3 mg/dL (8.5-10.1); Carbon Dioxide 31.9 meq/L (21.0-32.0); Potassium 3.8 meq/L (3.5-5.1)
[2018-05-17 13:32] LABS: Baso % (Auto) 0.9 % (0.0-2.0); Eos # (Auto) 0.3 th/mm3 (0.0-0.4); Eos % (Auto) 6.5 % (0.0-4.0); Lymph # (Auto) 1.6 th/mm3 (1.0-4.8); Lymph % (Auto) 30.9 % (9.0-44.0); Mean Corpuscular HGB Conc 32.5 % (32.0-36.0); Mean Corpuscular Hemoglobin 28.4 pg (27.0-34.0); Mean Corpuscular Volume 87.3 fL (80.0-100.0); Mean Platelet Volume 8.1 fL (7.0-11.0); Mono # (Auto) 0.5 th/mm3 (0.0-0.9); Mono % (Auto) 9.2 % (0.0-8.0); Neut # (Auto) 2.7 th/mm3 (1.8-7.7); Neut % (Auto) 52.5 % (16.0-70.0); Platelet Count 245 th/mm3 (150-450); Red Blood Count 4.58 mil/mm3 (4.00-5.30); White Blood Count 5.2 th/mm3 (4.0-11.0)
--- NOTE | 2018-05-17 14:02 | P.PNID ---
Subjective Remarks: pt is growing viridans strep in 2/2 cultures C/o R thigh pain, s not improving 05/10 afebrile Antibiotics: vancomycin Allergies/Adverse Reactions: Allergies adhesive Allergy (Severe, Verified 05/15/18 13:46) RASH amoxicillin Allergy (Severe, Verified 05/15/18 13:46) VOMITING baclofen Allergy (Severe, Verified 05/15/18 13:46) NAUSEA AND VOMITING clarithromycin Allergy (Severe, Verified 05/15/18 13:46) VOMITING clavulanic acid Allergy (Severe, Verified 05/15/18 13:46) VOMITING latex Allergy (Severe, Verified 05/15/18 13:46) RASH/ITCHING methocarbamol Allergy (Severe, Verified 05/15/18 13:46) Hives shellfish derived Allergy (Severe, Verified 05/15/18 13:46) Hives Objective Vital Signs 05/16/18 16:00 05/16/18 16:03 05/16/18 19:34 Temperature 97.6 F Pulse Rate 69 75 84 Respiratory Rate 12 16 Blood Pressure 157/86 H Pulse Oximetry 95 96 05/16/18 20:00 05/16/18 23:55 05/17/18 00:00 Temperature 98 F 97.7 F Pulse Rate 69 67 69 Respiratory Rate 20 18 Blood Pressure 150/72 H 145/88 H Pulse Oximetry 97 96 05/17/18 01:47 05/17/18 04:00 05/17/18 08:00 Temperature 98.3 F 98.0 F Pulse Rate 77 69 74 Respiratory Rate 24 20 20 Blood Pressure 145/80 H 168/79 H Pulse Oximetry 97 98 05/17/18 08:24 05/17/18 11:46 05/17/18 11:51 Temperature 98.2 F Pulse Rate 86 77 79 Respiratory Rate 20 Blood Pressure 160/81 H Pulse Oximetry 97 Intake & Output 05/16/18 05/17/18 05/17/18 18:59 06:59 18:59 Intake Total 1520 / 1520 1665 / 1665 Balance 1520 / 1520 1665 / 1665 Intake: IV 1520 / 1520 1665 / 1665 NS Inj 1,000 ML @ 100 mls/hr IV 1000 / 1000 1000 / 1000 .CONT .Q10H [facility] Rx#:[id number] Levaquin 750 mg Premix Inj 150 150 / 150 ML @ 100 mls/hr IV.SIG Q24H [facility] Rx#:[id number] Vancomycin Inj 1,500 MG In NS 520 / 520 515 / 515 Inj 500 ML @ 250 mls/hr IV.SIG Q12H ONE Rx#:[id number] Other: # Voids 1 Date of Last Bowel Movement 05/15/18 # Bowel Movements 1 05/15/18 14:20 Blood - Peripheral Aerobic Blood Culture - Preliminary No growth in 2 days 05/15/18 14:20 Blood - Peripheral Anaerobic Blood Culture - Preliminary Viridans streptococcus [facility] [place] 05/15/18 14:05 Blood - Peripheral Aerobic Blood Culture - Preliminary Viridans streptococcus [facility] [place] 05/15/18 14:05 Blood - Peripheral Anaerobic Blood Culture - Preliminary No growth in 2 days Lab - Hematology Results 05/15/18 05/17/18 14:05 13:00 WBC 6.1 5.2 RBC 4.51 4.58 Hgb 13.3 13.0 Hct 38.4 40.0 MCV 85.2 87.3 MCH 29.6 28.4 MCHC 34.7 32.5 RDW 13.8 14.0 Plt Count 257 245 MPV 8.3 8.1 Neut % (Auto) 44.5 52.5 Lymph % (Auto) 41.5 30.9 [place] % (Auto) 7.6 9.2 H Eos % (Auto) 5.3 H 6.5 H Baso % (Auto) 1.1 0.9 Neut # (Auto) 2.7 2.7 Lymph # (Auto) 2.5 1.6 [place] # (Auto) 0.5 0.5 Eos # (Auto) 0.3 0.3 Baso # (Auto) 0.1 0.0 WBC Differential . . Differential Comment Auto diff final Auto diff final Lab - Chemistry Results 05/15/18 05/17/18 14:05 11:56 Sodium 143 142 Potassium 3.8 3.8 Chloride 108 H 106 Carbon Dioxide 26.9 31.9 Anion Gap 8 4 L BUN 10 9 Creatinine 0.85 0.80 Estimated GFR 78 L 84 L Random Glucose 106 121 H Calcium 8.6 8.3 L Total Bilirubin 0.4 AST 124 H ALT 106 H Alkaline Phosphatase 136 H Total Protein 7.6 Albumin 3.7 Imaging: ITS Impressions Lower Extremity Ultrasound 05/15/18 14:03 CONCLUSION: 1. Subcutaneous edema. Venous Doppler Study 05/15/18 14:33 CONCLUSION: Technically Limited exam grossly negative for right leg DVT Physical Exam: GENERAL: NAD morbidly obese SKIN: Warm and dry. HEAD: Atraumatic. Normocephalic. EYES: Pupils equal and round. No scleral icterus. No injection or drainage. ENT: No nasal bleeding or discharge. Mucous membranes pink and moist. NECK: Trachea midline. No JVD. CARDIOVASCULAR: Regular rate and rhythm. RESPIRATORY: No accessory muscle use. Clear to auscultation. Breath sounds equal decreased bilaterally. GASTROINTESTINAL: Abdomen soft, non-tender, nondistended. MUSCULOSKELETAL: Extremities without clubbing, cyanosis, Erythema edema and tenderness to palpation of R posterior thigh No fluctuance NEUROLOGICAL: Awake and alert. No obvious cranial nerve deficits. Motor grossly within normal limits. Five out of 5 muscle strength in the arms and legs. Normal speech. PSYCHIATRIC: Appropriate mood and affect; insight and judgment normal. Assessment and Plan - Plan R posterior thigh cellulitis Can not exclude deeper infection Strep bacteremia strep viridance 2/2 will need to follow D on both isolates Multiple abx allergies severely limit choices Cont vancomycin, keep trough 10-15 If cont to have persistent/worsenig pain will try CT R femur if feasible (pt weight is right around the CT scanner limitations)
--- NOTE | 2018-05-17 15:50 | P.PN ---
Subjective Interval history: Patient is seen sitting up in chair. Nurses present. Patient tells me that she continues to have a lot of pain in her right leg. She feels that she is quite weak and tells me that she fell at home on 05/14 prior to coming to the emergency room. She denies any chest pain or shortness of breath. No dizziness or syncope. No nausea vomiting or diarrhea. She is tolerating her meals well. Physical Exam Vital signs: Vital Signs 05/16/18 16:00 05/16/18 16:03 05/16/18 19:34 Temperature 97.6 F Pulse Rate 69 75 84 Respiratory Rate 12 16 Blood Pressure 157/86 H Pulse Oximetry 95 96 05/16/18 20:00 05/16/18 23:55 05/17/18 00:00 Temperature 98 F 97.7 F Pulse Rate 69 67 69 Respiratory Rate 20 18 Blood Pressure 150/72 H 145/88 H Pulse Oximetry 97 96 05/17/18 01:47 05/17/18 04:00 05/17/18 08:00 Temperature 98.3 F 98.0 F Pulse Rate 77 69 74 Respiratory Rate 24 20 20 Blood Pressure 145/80 H 168/79 H Pulse Oximetry 97 98 05/17/18 08:24 05/17/18 10:10 05/17/18 11:46 Temperature 98.2 F Pulse Rate 86 80 77 Respiratory Rate 20 20 Blood Pressure 160/81 H Pulse Oximetry 97 05/17/18 11:51 Temperature Pulse Rate 79 Respiratory Rate Blood Pressure Pulse Oximetry Intake & Output 05/16/18 05/17/18 05/17/18 18:59 06:59 18:59 Intake Total 1520 / 1520 1665 / 1665 Balance 1520 / 1520 1665 / 1665 Intake: IV 1520 / 1520 1665 / 1665 NS Inj 1,000 ML @ 100 mls/hr IV 1000 / 1000 1000 / 1000 .CONT .Q10H [facility] Rx#:[id number] Levaquin 750 mg Premix Inj 150 150 / 150 ML @ 100 mls/hr IV.SIG Q24H [facility] Rx#:[id number] Vancomycin Inj 1,500 MG In NS 520 / 520 515 / 515 Inj 500 ML @ 250 mls/hr IV.SIG Q12H [facility] Rx#:[id number] Other: # Voids 1 Date of Last Bowel Movement 05/15/18 # Bowel Movements 1 Narrative: GENERAL: Morbidly obese white female in NAD. SKIN: Erythema and edema on right posterior thigh area. HEAD: Atraumatic. Normocephalic. CARDIOVASCULAR: Regular rate and rhythm. No murmur appreciated. RESPIRATORY: No accessory muscle use. Clear to auscultation. Breath sounds equal bilaterally. GASTROINTESTINAL: Abdomen soft, non-tender, nondistended. MUSCULOSKELETAL: No obvious deformities. No clubbing. No cyanosis. NEUROLOGICAL: Awake and alert. No obvious cranial nerve deficits. Motor grossly within normal limits. Normal speech. PSYCHIATRIC: Appropriate mood and affect; insight and judgment normal. Results - Labs CBC & Chem 7: 05/17/18 13:00 05/17/18 11:56 Laboratory Results - last 24 hr 05/17/18 05/17/18 11:56 13:00 WBC 5.2 RBC 4.58 Hgb 13.0 Hct 40.0 MCV 87.3 MCH 28.4 MCHC 32.5 RDW 14.0 Plt Count 245 MPV 8.1 Neut % (Auto) 52.5 Lymph % (Auto) 30.9 [place] % (Auto) 9.2 H Eos % (Auto) 6.5 H Baso % (Auto) 0.9 Neut # (Auto) 2.7 Lymph # (Auto) 1.6 [place] # (Auto) 0.5 Eos # (Auto) 0.3 Baso # (Auto) 0.0 WBC Differential . Differential Comment Auto diff final Sodium 142 Potassium 3.8 Chloride 106 Carbon Dioxide 31.9 Anion Gap 4 L BUN 9 Creatinine 0.80 Estimated GFR 84 L Random Glucose 121 H Calcium 8.3 L Microbiology 05/15/18 14:20 Blood - Peripheral Aerobic Blood Culture - Preliminary No growth in 2 days 05/15/18 14:20 Blood - Peripheral Anaerobic Blood Culture - Preliminary Viridans streptococcus [facility] 05/15/18 14:05 Blood - Peripheral Aerobic Blood Culture - Preliminary Viridans streptococcus [facility] 05/15/18 14:05 Blood - Peripheral Anaerobic Blood Culture - Preliminary No growth in 2 days Assessment and Plan - Plan Patient is a 33-year-old white female with a past medical history of COPD, hypertension, GERD and bipolar disorder who presented to the ER after a failed outpatient treatment with Bactrim for right upper thigh cellulitis. Right Thigh Cellulitis -ruled out DVT right venous doppler -Cultures-strep viridans -managed by ID -currently getting vancomycin. Weakness and falls -PT evaluate ordered; recommending discharge with home health Hypertension; controlled -continue home medicines COPD non exacerbated -continue Bronchodilator, Mucolytic and Incentive spirometry -patient uses oxygen at home 3L/min PRN/nights Obstructive Sleep apnea on BiPAP -asked for RT evaluation for BiPAP GERD -continue PPI Bipolar disorder -continue Home medicines. DVT prophylaxis with Lovenox.
[2018-05-17] MEDS: Enoxaparin Inj 40 MG/0.4 ML Syringe SQ SCH (17:39)
[2018-05-17] MEDS: Montelukast 10 MG Tablet PO SCH (22:46)
[2018-05-18] MEDS ORDERED: Pharmacy Ordered Lab Info OTHER ONE (02:45)
[2018-05-18] MEDS: Sod Chloride 0.9% Inj 1,000 ML IV.CONT SCH ×2 (05:24→19:56)
[2018-05-18] MEDS: Topiramate 25 MG Tablet PO SCH ×2 (09:32→22:53)
[2018-05-18] MEDS: Pantoprazole Sodium 20 MG DR Tablet PO SCH (09:35)
[2018-05-18] MEDS: Sucralfate 1 GM Tablet PO SCH ×4 (09:35→22:55)
[2018-05-18] MEDS: Sertraline 100 MG Tablet PO SCH (09:35)
[2018-05-18] MEDS: Furosemide 40 MG Tablet PO SCH (09:35)
[2018-05-18] MEDS: buPROPion 150 MG 12 HR Tablet PO SCH (09:35)
[2018-05-18] MEDS: Senna/Docusate Sodium 8.6/50 MG Tablet PO SCH ×2 (09:36→22:54)
[2018-05-18] MEDS: Budesonide-Formoterol 160/4.5 MCG 6 GM Inhaler INH SCH ×2 (09:36→23:03)
--- NOTE | 2018-05-18 12:21 | US ---
EXAM DATE: 05/18/2018 12:18 PM EDT AGE/SEX: 33 years / Female INDICATIONS: Cellulitis. CLINICAL DATA: This is the patient's subsequent encounter. Patient reports that signs and symptoms h ave been present for 1 month and indicates a pain score of 9/10. MEDICAL/SURGICAL HISTORY: . Bipolar disorder. Chronic obstructive pulmonary disease. Gastroes ophageal reflux disease. Hypertension. Obstructive sleep apnea. Morbid obesity with BMI of 70 and over, adult. . Tonsillectomy. Adenoidectomy. Cholecystectomy. [place] [facility] [place], 05/15/2018. . FINDINGS: Focused ultrasound examination does not demonstrate a focal drainable fluid collection corresponding to region of cellulitis. CONCLUSION: 1. No sonographic evidence for focal drainable fluid collection. Electronically signed by: Sandro Jeong MD 05/18/2018 12:20 PM EDT
[2018-05-18] MEDS: Vancomycin Inj 1,500 MG in Sodium Chlor 0.9% Inj 500 ML IV.SIG SCH (14:08)
--- NOTE | 2018-05-18 15:50 | P.PN ---
Subjective Interval history: Patient is seen ambulating in room. She reports that her leg continues to bother her. Denies any shortness of breath or chest pain. Denies any nausea vomiting or diarrhea. Is tolerating her meals well. Physical Exam Vital signs: Vital Signs 05/17/18 15:47 05/17/18 16:07 05/17/18 17:00 Temperature 97.8 F Pulse Rate 74 74 77 Respiratory Rate 20 20 Blood Pressure 163/72 H Pulse Oximetry 95 05/17/18 20:00 05/17/18 21:07 05/18/18 00:00 Temperature 98.7 F 99.2 F Pulse Rate 88 88 84 Respiratory Rate 21 21 21 Blood Pressure 126/61 129/84 Pulse Oximetry 93 L 93 L 05/18/18 03:11 05/18/18 03:53 05/18/18 04:00 Temperature 98.1 F Pulse Rate 74 76 Respiratory Rate 16 16 21 Blood Pressure 130/62 Pulse Oximetry 95 94 L 05/18/18 08:00 05/18/18 08:06 05/18/18 08:49 Temperature 98.2 F Pulse Rate 72 92 H 82 Respiratory Rate 20 20 Blood Pressure 128/60 Pulse Oximetry 96 05/18/18 08:50 05/18/18 12:00 05/18/18 14:52 Temperature 97.9 F Pulse Rate 70 90 Respiratory Rate 20 18 Blood Pressure 128/40 L Pulse Oximetry 96 96 05/18/18 15:18 Temperature Pulse Rate 85 Respiratory Rate Blood Pressure Pulse Oximetry Intake & Output 05/17/18 05/18/18 05/18/18 18:59 06:59 18:59 Intake Total 1000 / 1000 1000 / 1000 Balance 1000 / 1000 1000 / 1000 Intake: IV 1000 / 1000 1000 / 1000 NS Inj 1,000 ML @ 100 mls/hr IV 1000 / 1000 1000 / 1000 .CONT .Q10H [facility] Rx#:[id number] Other: # Voids 1 Date of Last Bowel Movement 05/15/18 05/15/18 Narrative: GENERAL: Morbidly obese white female in NAD. SKIN: Erythema and edema on right posterior thigh area. HEAD: Atraumatic. Normocephalic. CARDIOVASCULAR: Regular rate and rhythm. No murmur appreciated. RESPIRATORY: No accessory muscle use. Clear to auscultation. Breath sounds equal bilaterally. GASTROINTESTINAL: Abdomen soft, non-tender, nondistended. MUSCULOSKELETAL: No obvious deformities. No clubbing. No cyanosis. NEUROLOGICAL: Awake and alert. No obvious cranial nerve deficits. Motor grossly within normal limits. Normal speech. PSYCHIATRIC: Appropriate mood and affect; insight and judgment normal. Results - Labs CBC & Chem 7: 05/17/18 13:00 05/17/18 11:56 Laboratory Results - last 24 hr 05/18/18 02:45 Vancomycin Trough 3.9 L Microbiology 05/15/18 14:20 Blood - Peripheral Aerobic Blood Culture - Preliminary No growth in 3 days 05/15/18 14:20 Blood - Peripheral Anaerobic Blood Culture - Final 05/15/18 14:05 Blood - Peripheral Aerobic Blood Culture - Final 05/15/18 14:05 Blood - Peripheral Anaerobic Blood Culture - Preliminary No growth in 3 days - Imaging Impressions Lower Extremity Ultrasound 05/18/18 00:00 CONCLUSION: 1. No sonographic evidence for focal drainable fluid collection. Assessment and Plan - Plan Patient is a 33-year-old white female with a past medical history of COPD, hypertension, GERD and bipolar disorder who presented to the ER after a failed outpatient treatment with Bactrim for right upper thigh cellulitis. Right Thigh Cellulitis -ruled out DVT right venous doppler -Cultures-strep viridans -managed by ID -currently getting vancomycin. ID requesting CT of right femur however patient is unable to be accommodated by machine due to body habitus. US done 05/18 indicated no drainable fluid. Weakness and falls -PT evaluate ordered; recommending discharge with home health Hypertension; controlled -continue home medicines COPD non exacerbated -continue Bronchodilator, Mucolytic and Incentive spirometry -patient uses oxygen at home 3L/min PRN/nights Obstructive Sleep apnea on BiPAP -asked for RT evaluation for BiPAP GERD -continue PPI Bipolar disorder -continue Home medicines. DVT prophylaxis with Lovenox. Discharge planning: Patient will be discharged with home health once cleared by ID.
[2018-05-18 18:24] LABS: Baso # (Auto) 0.1 th/mm3 (0.0-0.2); Baso % (Auto) 1.2 % (0.0-2.0); Eos # (Auto) 0.3 th/mm3 (0.0-0.4); Hematocrit 35.6 % (35.0-46.0); Hemoglobin 11.7 gm/dL (11.6-15.3); Lymph # (Auto) 1.6 th/mm3 (1.0-4.8); Lymph % (Auto) 28.5 % (9.0-44.0); Mean Corpuscular HGB Conc 32.8 % (32.0-36.0); Mean Corpuscular Hemoglobin 28.4 pg (27.0-34.0); Mean Corpuscular Volume 86.7 fL (80.0-100.0); Mean Platelet Volume 8.3 fL (7.0-11.0); Mono # (Auto) 0.6 th/mm3 (0.0-0.9); Mono % (Auto) 10.1 % (0.0-8.0); Neut # (Auto) 3.1 th/mm3 (1.8-7.7); Neut % (Auto) 55.2 % (16.0-70.0); Platelet Count 244 th/mm3 (150-450); Red Blood Count 4.11 mil/mm3 (4.00-5.30); Red Cell Distribution Width 13.8 % (11.6-17.2); White Blood Count 5.6 th/mm3 (4.0-11.0)
[2018-05-18] MEDS: Enoxaparin Inj 40 MG/0.4 ML Syringe SQ SCH (19:56)
[2018-05-18] MEDS: Montelukast 10 MG Tablet PO SCH (22:55)
[2018-05-19] MEDS: Vancomycin Inj 1,500 MG in Sodium Chlor 0.9% Inj 500 ML IV.SIG SCH ×2 (01:28→12:47)
[2018-05-19] MEDS: Sod Chloride 0.9% Inj 1,000 ML IV.CONT SCH ×3 (03:10→20:21)
[2018-05-19 08:11] LABS: Anion Gap 7 meq/L (5-15); Blood Urea Nitrogen 9 mg/dL (7-18); Calcium 8.2 mg/dL (8.5-10.1); Chloride 105 meq/L (98-107); Glomerular Filtration Rate Greater Than 89 mL/min (>89); Glucose,Random 83 mg/dL (74-106); Sodium 142 meq/L (136-145)
[2018-05-19 08:12] LABS: Potassium 3.8 meq/L (3.5-5.1)
[2018-05-19 08:23] LABS: Baso # (Auto) 0.1 th/mm3 (0.0-0.2); Baso % (Auto) 1.1 % (0.0-2.0); Eos # (Auto) 0.4 th/mm3 (0.0-0.4); Eos % (Auto) 6.3 % (0.0-4.0); Hematocrit 35.9 % (35.0-46.0); Hemoglobin 11.9 gm/dL (11.6-15.3); Lymph # (Auto) 2.2 th/mm3 (1.0-4.8); Lymph % (Auto) 35.8 % (9.0-44.0); Mean Corpuscular HGB Conc 33.1 % (32.0-36.0); Mean Corpuscular Hemoglobin 29.1 pg (27.0-34.0); Mean Corpuscular Volume 87.8 fL (80.0-100.0); Mean Platelet Volume 8.7 fL (7.0-11.0); Mono # (Auto) 0.6 th/mm3 (0.0-0.9); Mono % (Auto) 10.6 % (0.0-8.0); Neut # (Auto) 2.8 th/mm3 (1.8-7.7); Neut % (Auto) 46.2 % (16.0-70.0); Platelet Count 230 th/mm3 (150-450); Red Blood Count 4.09 mil/mm3 (4.00-5.30); Red Cell Distribution Width 13.9 % (11.6-17.2); White Blood Count 6.1 th/mm3 (4.0-11.0)
--- NOTE | 2018-05-19 08:53 | P.PN ---
Subjective Interval history: This is a pleasant 33 y/o Female with COPD, Bipolar disorder, who came to ER with one month history of right posterior upper thigh pain, Sharp pain, 8/10 in intensity, The patient states that she had a pimple in the area, saw her PCP and took a course of Bactrim with no improvement. She states that she was then seen at [facility] and had a needle aspiration and another round of antibiotics with no improvement of symptoms. She states that she began to have chills over the last few days. She states that she measured a fever of 100.4 by oral thermometer last night. She denies numbness, tingling, weakness, limitations to ROM of the affected extremity. She has been taking acetaminophen, last dose around 5 am today. She has Hypertension, GERD, Morbid obesity, Seen in Emergency room confirm the story evaluated. 05/19: Stable in her bedroom, complaint of pain on her right foreleg no other complaint, no nausea, vomit or diarrhea discussed with nurse Miss Imelda Nails no new issues. Physical Exam Vital signs: Vital Signs 05/18/18 12:00 05/18/18 14:52 05/18/18 15:18 Temperature 97.9 F Pulse Rate 70 90 85 Respiratory Rate 20 18 Blood Pressure 128/40 L Pulse Oximetry 96 05/18/18 16:00 05/18/18 16:17 05/18/18 20:00 Temperature 98.9 F 98.9 F Pulse Rate 88 68 87 Respiratory Rate 20 20 Blood Pressure 169/72 H 158/76 H Pulse Oximetry 98 97 05/18/18 20:24 05/18/18 20:25 05/19/18 00:33 Temperature 98.5 F Pulse Rate 84 89 Respiratory Rate 17 21 Blood Pressure 139/65 Pulse Oximetry 99 94 L 05/19/18 04:34 Temperature 98.2 F Pulse Rate 69 Respiratory Rate 18 Blood Pressure 143/70 H Pulse Oximetry 99 Intake & Output 05/18/18 05/19/18 05/19/18 18:59 06:59 18:59 Intake Total 1515 / 1515 1895 / 1895 Balance 1515 / 1515 1895 / 1895 Weight 216 kg Intake: IV 1515 / 1515 1515 / 1515 NS Inj 1,000 ML @ 100 mls/hr IV 1000 / 1000 1000 / 1000 .CONT .Q10H [facility] Rx#:[id number] Vancomycin Inj 1,500 MG In NS 515 / 515 515 / 515 Inj 500 ML @ 250 mls/hr IV.SIG Q12H [facility] Rx#:[id number] Oral 380 / 380 Other: # Voids 1 Date of Last Bowel Movement 05/15/18 05/15/18 Narrative: GENERAL: Morbidly obese white female in NAD. SKIN: Erythema and edema on right posterior thigh area. HEAD: Atraumatic. Normocephalic. CARDIOVASCULAR: Regular rate and rhythm. No murmur appreciated. RESPIRATORY: No accessory muscle use. Clear to auscultation. Breath sounds equal bilaterally. GASTROINTESTINAL: Abdomen soft, non-tender, nondistended. MUSCULOSKELETAL: No obvious deformities. No clubbing. No cyanosis. NEUROLOGICAL: Awake and alert. No obvious cranial nerve deficits. Motor grossly within normal limits. Normal speech. PSYCHIATRIC: Appropriate mood and affect; insight and judgment normal. Results - Labs CBC & Chem 7: 05/19/18 06:44 05/19/18 06:44 Laboratory Results - last 24 hr 05/18/18 05/19/18 05/19/18 17:21 06:44 06:44 WBC 5.6 6.1 RBC 4.11 4.09 Hgb 11.7 11.9 Hct 35.6 35.9 MCV 86.7 87.8 MCH 28.4 29.1 MCHC 32.8 33.1 RDW 13.8 13.9 Plt Count 244 230 MPV 8.3 8.7 Prelim Diff (Auto) Slide review pending Neut % (Auto) 55.2 46.2 Lymph % (Auto) 28.5 35.8 [place] % (Auto) 10.1 H 10.6 H Eos % (Auto) 5.0 H 6.3 H Baso % (Auto) 1.2 1.1 Neut # (Auto) 3.1 2.8 Lymph # (Auto) 1.6 2.2 [place]a # (Auto) 0.6 0.6 Eos # (Auto) 0.3 0.4 Baso # (Auto) 0.1 0.1 WBC Differential . Differential Comment Auto diff final . Sodium 142 Potassium 3.8 Chloride 105 Carbon Dioxide 30.0 Anion Gap 7 BUN 9 Creatinine 0.66 Estimated GFR Greater than 89 Random Glucose 83 Calcium 8.2 L Microbiology 05/18/18 14:17 Sputum - Expectorated Sputum Gram Stain - Final 05/15/18 14:20 Blood - Peripheral Aerobic Blood Culture - Preliminary No growth in 3 days 05/15/18 14:20 Blood - Peripheral Anaerobic Blood Culture - Final 05/15/18 14:05 Blood - Peripheral Aerobic Blood Culture - Final 05/15/18 14:05 Blood - Peripheral Anaerobic Blood Culture - Preliminary No growth in 3 days - Imaging Impressions Lower Extremity Ultrasound 05/18/18 00:00 CONCLUSION: 1. No sonographic evidence for focal drainable fluid collection. Assessment and Plan - Plan Patient is a 33-year-old white female with a past medical history of COPD, hypertension, GERD and bipolar disorder who presented to the ER after a failed outpatient treatment with Bactrim for right upper thigh cellulitis. Right Thigh Cellulitis -ruled out DVT right venous doppler -Cultures-strep viridans -managed by ID -currently getting vancomycin. ID requesting CT of right femur however patient is unable to be accommodated by machine due to body habitus. US done 05/18 indicated no drainable fluid. Weakness and falls -PT evaluate ordered; recommending discharge with home health Hypertension; controlled -continue home medicines COPD non exacerbated/chronic respiratory failure the patient uses oxygen at home 3L/min when gets activity and at night. -continue Bronchodilator, Mucolytic and Incentive spirometry -patient uses oxygen at home 3L/min PRN/nights Obstructive Sleep apnea on BiPAP -asked for RT evaluation for BiPAP GERD -continue PPI Bipolar disorder -continue Home medicines. Morbid Obesity strongly recommended diet and exercise, weight loss warranted. A[place]STA on BiPAP. DVT prophylaxis with Lovenox. DVT prophylaxis with Lovenox. Code Status: Full Code. Discussed Condition With: Patient and Nurse. Discharge Planning: expected in one to two days.
[2018-05-19] MEDS: Senna/Docusate Sodium 8.6/50 MG Tablet PO SCH ×2 (09:01→20:06)
[2018-05-19] MEDS: Topiramate 25 MG Tablet PO SCH ×2 (09:01→20:06)
[2018-05-19] MEDS: Pantoprazole Sodium 20 MG DR Tablet PO SCH (09:02)
[2018-05-19] MEDS: buPROPion 150 MG 12 HR Tablet PO SCH (09:02)
[2018-05-19] MEDS: Sertraline 100 MG Tablet PO SCH (09:02)
[2018-05-19] MEDS: Sucralfate 1 GM Tablet PO SCH ×4 (09:02→20:06)
[2018-05-19] MEDS: Furosemide 40 MG Tablet PO SCH (09:02)
[2018-05-19 10:44] LABS: Eosinophils 7 % (0-4); Lymphocytes 29 % (9-44); Monocytes 13 % (0-8); Myelocytes 1 % (0-0); Platelet Estimate Normal (Normal); Platelet Morphology Normal (Normal); Tallied Nucleated RBC 1 (0-0)
[2018-05-19 10:45] LABS: Basophilic Stippling Moderate
[2018-05-19] MEDS: Budesonide-Formoterol 160/4.5 MCG 6 GM Inhaler INH SCH ×2 (12:46→20:07)
[2018-05-19] MEDS: Enoxaparin Inj 40 MG/0.4 ML Syringe SQ SCH (17:21)
[2018-05-19] MEDS: Montelukast 10 MG Tablet PO SCH (20:06)
[2018-05-20] MEDS ORDERED: Pharmacy Ordered Lab Info OTHER ONE (00:45)
[2018-05-20] MEDS: Sod Chloride 0.9% Inj 1,000 ML IV.CONT SCH ×2 (00:57→19:12)
[2018-05-20] MEDS: Vancomycin Inj 1,500 MG in Sodium Chlor 0.9% Inj 500 ML IV.SIG SCH ×2 (02:43→14:14)
--- NOTE | 2018-05-20 08:27 | P.PN ---
Subjective Interval history: This is a pleasant 33 y/o Female with COPD, Bipolar disorder, who came to ER with one month history of right posterior upper thigh pain, Sharp pain, 8/10 in intensity, The patient states that she had a pimple in the area, saw her PCP and took a course of Bactrim with no improvement. She states that she was then seen at [facility] and had a needle aspiration and another round of antibiotics with no improvement of symptoms. She states that she began to have chills over the last few days. She states that she measured a fever of 100.4 by oral thermometer last night. She denies numbness, tingling, weakness, limitations to ROM of the affected extremity. She has been taking acetaminophen, last dose around 5 am today. She has Hypertension, GERD, Morbid obesity, Seen in Emergency room confirm the story evaluated. 05/20: seen in her bedroom, on CPAP, no complaint, awaiting for ID specialist for discharge, no nausea, vomit or diarrhea. Physical Exam Vital signs: Vital Signs 05/19/18 10:19 05/19/18 12:00 05/19/18 16:00 Temperature 98.0 F 97.6 F Pulse Rate 91 H 90 109 H Respiratory Rate 22 17 18 Blood Pressure 175/72 H 124/69 Pulse Oximetry 97 93 L 93 L 05/19/18 16:02 05/19/18 20:00 05/19/18 20:07 Temperature 98.5 F Pulse Rate 84 76 70 Respiratory Rate 22 20 16 Blood Pressure 137/69 Pulse Oximetry 96 97 05/20/18 00:28 05/20/18 03:50 05/20/18 04:48 Temperature 97.6 F 98.9 F Pulse Rate 84 78 77 Respiratory Rate 21 19 21 Blood Pressure 149/82 H 133/62 Pulse Oximetry 94 L 96 Intake & Output 05/19/18 05/20/18 05/20/18 18:59 06:59 18:59 Intake Total 675 / 675 2610 / 2610 Balance 675 / 675 2610 / 2610 Weight 216 kg Intake: IV 2029 NS Inj 1,000 ML @ 100 mls/hr IV 1000 / 1000 .CONT .Q10H [facility] Rx#:[id number] Vancomycin Inj 1,500 MG In NS 1030 / 1030 Inj 500 ML @ 250 mls/hr IV.SIG Q12H [facility] Rx#:[id number] Oral 675 / 675 580 / 580 Other: # Voids 3 3 Date of Last Bowel Movement 05/20/18 # Bowel Movements 0 Narrative: GENERAL: Morbidly obese white female in NAD. SKIN: Erythema and edema on right posterior thigh area. HEAD: Atraumatic. Normocephalic. CARDIOVASCULAR: Regular rate and rhythm. No murmur appreciated. RESPIRATORY: No accessory muscle use. Clear to auscultation. Breath sounds equal bilaterally. GASTROINTESTINAL: Abdomen soft, non-tender, nondistended. MUSCULOSKELETAL: No obvious deformities. No clubbing. No cyanosis. NEUROLOGICAL: Awake and alert. No obvious cranial nerve deficits. Motor grossly within normal limits. Normal speech. PSYCHIATRIC: Appropriate mood and affect; insight and judgment normal. Results - Labs CBC & Chem 7: 05/19/18 06:44 05/19/18 06:44 Laboratory Results - last 24 hr 05/19/18 05/20/18 06:44 01:29 WBC 6.1 RBC 4.09 Hgb 11.9 Hct 35.9 MCV 87.8 MCH 29.1 MCHC 33.1 RDW 13.9 Plt Count 230 MPV 8.7 Prelim Diff (Auto) Slide review pending Neut % (Auto) 46.2 Lymph % (Auto) 35.8 [place] % (Auto) 10.6 H Eos % (Auto) 6.3 H Baso % (Auto) 1.1 Neut # (Auto) 2.8 Lymph # (Auto) 2.2 [place] # (Auto) 0.6 Eos # (Auto) 0.4 Baso # (Auto) 0.1 WBC Differential Manual diff final Seg Neuts % (Manual) 48 Band Neuts % (Manual) 1 Lymphocytes % (Manual) 29 Monocytes % (Manual) 13 H Eosinophils % (Manual) 7 H Basophils % (Manual) 1 Myelocytes % (Man) 1 H Abs Neuts (Manual) 3.1 Nucleated RBCs/100 WBC 1 H Differential Comment . Platelet Estimate Normal Platelet Morphology Normal Basophilic Stippling Moderate H Vancomycin Trough 10.7 H Microbiology 05/18/18 14:17 Sputum - Expectorated Sputum Gram Stain - Final 05/18/18 14:17 Sputum - Expectorated Sputum Sputum Culture - Preliminary Heavy growth normal respiratory mikey at 24 hours 05/15/18 14:20 Blood - Peripheral Aerobic Blood Culture - Preliminary No growth in 4 days 05/15/18 14:20 Blood - Peripheral Anaerobic Blood Culture - Final 05/15/18 14:05 Blood - Peripheral Aerobic Blood Culture - Final 05/15/18 14:05 Blood - Peripheral Anaerobic Blood Culture - Preliminary No growth in 4 days Assessment and Plan - Plan Patient is a 33-year-old white female with a past medical history of COPD, hypertension, GERD and bipolar disorder who presented to the ER after a failed outpatient treatment with Bactrim for right upper thigh cellulitis. Right Thigh Cellulitis -ruled out DVT right venous doppler -Cultures-strep viridans -managed by ID -currently getting vancomycin. ID requesting CT of right femur however patient is unable to be accommodated by machine due to body habitus. US done 05/18 indicated no drainable fluid. Weakness and falls -PT evaluate ordered; recommending discharge with home health Hypertension; controlled -continue home medicines COPD non exacerbated/chronic respiratory failure the patient uses oxygen at home 3L/min when gets activity and at night. -continue Bronchodilator, Mucolytic and Incentive spirometry -patient uses oxygen at home 3L/min PRN/nights Obstructive Sleep apnea on CPAP -asked for RT evaluation for CPAP GERD -continue PPI Bipolar disorder -continue Home medicines. Morbid Obesity strongly recommended diet and exercise, weight loss warranted. DVT prophylaxis with Lovenox. Code Status: Full code. Discussed Condition With: patient and nurse. Discharge Planning: expected in one to two days.
[2018-05-20] MEDS: Topiramate 25 MG Tablet PO SCH ×2 (09:26→21:05)
[2018-05-20] MEDS: Pantoprazole Sodium 20 MG DR Tablet PO SCH (09:27)
[2018-05-20] MEDS: buPROPion 150 MG 12 HR Tablet PO SCH (09:27)
[2018-05-20] MEDS: Sucralfate 1 GM Tablet PO SCH ×4 (09:27→21:05)
[2018-05-20] MEDS: Senna/Docusate Sodium 8.6/50 MG Tablet PO SCH ×2 (09:27→21:05)
[2018-05-20] MEDS: Furosemide 40 MG Tablet PO SCH (09:28)
[2018-05-20] MEDS: Sertraline 100 MG Tablet PO SCH (09:28)
[2018-05-20] MEDS: Budesonide-Formoterol 160/4.5 MCG 6 GM Inhaler INH SCH ×2 (09:34→21:05)
--- NOTE | 2018-05-20 18:14 | P.PNID ---
Subjective Remarks: pt is growing viridans strep in 2/2 cultures C/o R thigh pain, repeat US negative for fluid collection afebrile co productive cough with yellow sputum Antibiotics: vancomycin Allergies/Adverse Reactions: Allergies adhesive Allergy (Severe, Verified 05/15/18 13:46) RASH amoxicillin Allergy (Severe, Verified 05/15/18 13:46) VOMITING baclofen Allergy (Severe, Verified 05/15/18 13:46) NAUSEA AND VOMITING clarithromycin Allergy (Severe, Verified 05/15/18 13:46) VOMITING clavulanic acid Allergy (Severe, Verified 05/15/18 13:46) VOMITING latex Allergy (Severe, Verified 05/15/18 13:46) RASH/ITCHING methocarbamol Allergy (Severe, Verified 05/15/18 13:46) Hives shellfish derived Allergy (Severe, Verified 05/15/18 13:46) Hives Objective Vital Signs 05/19/18 20:00 05/19/18 20:07 05/20/18 00:28 Temperature 98.5 F 97.6 F Pulse Rate 76 70 84 Respiratory Rate 20 16 21 Blood Pressure 137/69 149/82 H Pulse Oximetry 96 97 94 L 05/20/18 03:50 05/20/18 04:48 05/20/18 08:00 Temperature 98.9 F 97.8 F Pulse Rate 78 77 85 Respiratory Rate 19 21 16 Blood Pressure 133/62 143/62 H Pulse Oximetry 96 92 L 05/20/18 10:07 05/20/18 10:08 05/20/18 12:00 Temperature 97.2 F L Pulse Rate 82 78 Respiratory Rate 12 17 Blood Pressure 153/67 H Pulse Oximetry 95 94 L 05/20/18 15:26 05/20/18 16:00 Temperature 97.8 F Pulse Rate 89 109 H Respiratory Rate 16 17 Blood Pressure 128/72 Pulse Oximetry 92 L Intake & Output 05/19/18 05/20/18 05/20/18 18:59 06:59 18:59 Intake Total 675 / 675 2610 / 2610 Balance 675 / 675 2610 / 2610 Weight 216 kg Intake: IV 2029 NS Inj 1,000 ML @ 100 mls/hr IV 1000 / 1000 .CONT .Q10H [facility] Rx#:[id number] Vancomycin Inj 1,500 MG In NS 1030 / 1030 Inj 500 ML @ 250 mls/hr IV.SIG Q12H [facility] Rx#:[id number] Oral 675 / 675 580 / 580 Other: # Voids 3 3 Date of Last Bowel Movement 05/20/18 # Bowel Movements 0 05/18/18 14:17 Sputum - Expectorated Sputum Gram Stain - Final 05/18/18 14:17 Sputum - Expectorated Sputum Sputum Culture - Final Heavy growth normal respiratory mikey 05/15/18 14:20 Blood - Peripheral Aerobic Blood Culture - Final No growth in 5 days 05/15/18 14:20 Blood - Peripheral Anaerobic Blood Culture - Final 05/15/18 14:05 Blood - Peripheral Aerobic Blood Culture - Final 05/15/18 14:05 Blood - Peripheral Anaerobic Blood Culture - Final No growth in 5 days Lab - Hematology Results 05/18/18 05/19/18 17:21 06:44 WBC 5.6 6.1 RBC 4.11 4.09 Hgb 11.7 11.9 Hct 35.6 35.9 MCV 86.7 87.8 MCH 28.4 29.1 MCHC 32.8 33.1 RDW 13.8 13.9 Plt Count 244 230 MPV 8.3 8.7 Prelim Diff (Auto) Slide review pending Neut % (Auto) 55.2 46.2 Lymph % (Auto) 28.5 35.8 Brooke % (Auto) 10.1 H 10.6 H Eos % (Auto) 5.0 H 6.3 H Baso % (Auto) 1.2 1.1 Neut # (Auto) 3.1 2.8 Lymph # (Auto) 1.6 2.2 Brooke # (Auto) 0.6 0.6 Eos # (Auto) 0.3 0.4 Baso # (Auto) 0.1 0.1 WBC Differential . Manual diff final Seg Neuts % (Manual) 48 Band Neuts % (Manual) 1 Lymphocytes % (Manual) 29 Monocytes % (Manual) 13 H Eosinophils % (Manual) 7 H Basophils % (Manual) 1 Myelocytes % (Man) 1 H Abs Neuts (Manual) 3.1 Nucleated RBCs/100 WBC 1 H Differential Comment Auto diff final . Platelet Estimate Normal Platelet Morphology Normal Basophilic Stippling Moderate H Lab - Chemistry Results 05/19/18 06:44 Sodium 142 Potassium 3.8 Chloride 105 Carbon Dioxide 30.0 Anion Gap 7 BUN 9 Creatinine 0.66 Estimated GFR Greater than 89 Random Glucose 83 Calcium 8.2 L Imaging: ITS Impressions Venous Doppler Study 05/15/18 14:33 CONCLUSION: Technically Limited exam grossly negative for right leg DVT Lower Extremity Ultrasound 05/18/18 00:00 CONCLUSION: 1. No sonographic evidence for focal drainable fluid collection. Physical Exam: GENERAL: NAD morbidly obese SKIN: Warm and dry. HEAD: Atraumatic. Normocephalic. EYES: Pupils equal and round. No scleral icterus. No injection or drainage. ENT: No nasal bleeding or discharge. Mucous membranes pink and moist. NECK: Trachea midline. No JVD. CARDIOVASCULAR: Regular rate and rhythm. RESPIRATORY: No accessory muscle use. Clear to auscultation. Breath sounds equal decreased bilaterally. GASTROINTESTINAL: Abdomen soft, non-tender, nondistended. MUSCULOSKELETAL: Extremities without clubbing, cyanosis, Erythema edema and tenderness to palpation of R posterior thigh - appears better, less red and less tender No fluctuance NEUROLOGICAL: Awake and alert. No obvious cranial nerve deficits. Motor grossly within normal limits. Five out of 5 muscle strength in the arms and legs. Normal speech. PSYCHIATRIC: Appropriate mood and affect; insight and judgment normal. Assessment and Plan - Plan R posterior thigh cellulitis Can not exclude deeper infection Strep bacteremia strep viridance 2/2 will need to follow D on both isolates Multiple abx allergies severely limit choices Productive cough Cont vancomycin, keep trough 10-15 Consider to dc if improving on clindamycin 300 qid to complete 14 days of abx CXR
[2018-05-20] MEDS: Enoxaparin Inj 40 MG/0.4 ML Syringe SQ SCH (18:16)
--- NOTE | 2018-05-20 20:01 | XR ---
EXAM DATE: 05/20/2018 7:54 PM EDT AGE/SEX: 33 years / Female INDICATIONS: Cough CLINICAL DATA: This is the patient's subsequent encounter. Patient reports that signs and symptoms h ave been present for 4 - 6 days and indicates a pain score of 0/10. MEDICAL/SURGICAL HISTORY: . Bipolar disorder. Chronic obstructive pulmonary disease. Gastroesop hageal reflux disease. Hypertension. Obstructive sleep apnea. Morbid obesity with BMI of 70 and over, adult. . . Tonsillectomy. Adenoidectomy. Cholecystectomy COMPARISON: [facility], CHEST SINGLE AP, 02/08/2018. [facility], CHEST SINGLE AP, 04/24/2017. [facility], XR CHEST PA AND LAT, 10/26/2015. [facility] [place], CHEST PA & LAT, 10/11/2015. . FINDINGS: Large body habitus which creates significant scatter and poor delineation of the lung ji. The hea rt is enlarged. Portions of both hemidiaphragms well delineated. No definite infiltrates seen in the lungs. CONCLUSION: Cardiomegaly. No definite infiltrates seen on this examination which is limited in quality by patient body habitus. Electronically signed by: Eloy Marr MD 05/20/2018 8:00 PM EDT
[2018-05-20] MEDS: Montelukast 10 MG Tablet PO SCH (21:05)
[2018-05-21] MEDS: Vancomycin Inj 1,500 MG in Sodium Chlor 0.9% Inj 500 ML IV.SIG SCH (02:00)
[2018-05-21] MEDS: buPROPion 150 MG 12 HR Tablet PO SCH (08:27)
[2018-05-21] MEDS: Furosemide 40 MG Tablet PO SCH (08:28)
[2018-05-21] MEDS: Topiramate 25 MG Tablet PO SCH (08:28)
[2018-05-21] MEDS: Sertraline 100 MG Tablet PO SCH (08:29)
[2018-05-21] MEDS: Senna/Docusate Sodium 8.6/50 MG Tablet PO SCH (08:29)
[2018-05-21] MEDS: Pantoprazole Sodium 20 MG DR Tablet PO SCH (08:30)
[2018-05-21] MEDS: Budesonide-Formoterol 160/4.5 MCG 6 GM Inhaler INH SCH (08:31)
[2018-05-21] MEDS: Sucralfate 1 GM Tablet PO SCH (08:36)
--- NOTE | 2018-05-21 10:19 | P.PN ---
Subjective Interval history: This is a pleasant 33 y/o Female with COPD, Bipolar disorder, who came to ER with one month history of right posterior upper thigh pain, Sharp pain, 8/10 in intensity, The patient states that she had a pimple in the area, saw her PCP and took a course of Bactrim with no improvement. She states that she was then seen at [facility] and had a needle aspiration and another round of antibiotics with no improvement of symptoms. She states that she began to have chills over the last few days. She states that she measured a fever of 100.4 by oral thermometer last night. She denies numbness, tingling, weakness, limitations to ROM of the affected extremity. She has been taking acetaminophen, last dose around 5 am today. She has Hypertension, GERD, Morbid obesity, Seen in Emergency room confirm the story evaluated. 05/21: Seen in her bedroom stable no new issues, asking for Tessalon pearls on going home, already recommended for Clindamycin by mouth by ID specialist on discharge for 14 days, 300 mg QID, No nausea, vomit or diarrhea. Physical Exam Vital signs: Vital Signs 05/20/18 12:00 05/20/18 15:26 05/20/18 16:00 Temperature 97.2 F L 97.8 F Pulse Rate 78 89 109 H Respiratory Rate 17 16 17 Blood Pressure 153/67 H 128/72 Pulse Oximetry 94 L 92 L 05/20/18 20:00 05/20/18 21:49 05/21/18 00:00 Temperature 97.9 F 98.1 F Pulse Rate 73 82 73 Respiratory Rate 22 21 22 Blood Pressure 123/65 125/62 Pulse Oximetry 92 L 97 92 L 05/21/18 04:00 05/21/18 04:07 05/21/18 08:00 Temperature 97.8 F 97.9 F Pulse Rate 83 68 71 Respiratory Rate 22 18 20 Blood Pressure 170/69 H 132/63 Pulse Oximetry 96 05/21/18 09:10 Temperature Pulse Rate 80 Respiratory Rate 17 Blood Pressure Pulse Oximetry 97 Intake & Output 05/20/18 05/21/18 05/21/18 18:59 06:59 18:59 Intake Total 600 / 600 1270 / 1270 Balance 600 / 600 1270 / 1270 Intake: IV 600 / 600 1030 / 1030 NS Inj 1,000 ML @ 100 mls/hr IV 600 / 600 0 / 0 .CONT .Q10H [facility] Rx#:[id number] Vancomycin Inj 1,500 MG In NS 1030 / 1030 Inj 500 ML @ 250 mls/hr IV.SIG Q12H [facility] Rx#:[id number] Oral 240 / 240 Other: # Voids 3 Narrative: GENERAL: Morbidly obese white female in NAD. SKIN: Erythema and edema on right posterior thigh area. HEAD: Atraumatic. Normocephalic. CARDIOVASCULAR: Regular rate and rhythm. No murmur appreciated. RESPIRATORY: No accessory muscle use. Clear to auscultation. Breath sounds equal bilaterally. GASTROINTESTINAL: Abdomen soft, non-tender, nondistended. MUSCULOSKELETAL: No obvious deformities. No clubbing. No cyanosis. NEUROLOGICAL: Awake and alert. No obvious cranial nerve deficits. Motor grossly within normal limits. Normal speech. PSYCHIATRIC: Appropriate mood and affect; insight and judgment normal. Results - Labs CBC & Chem 7: 05/19/18 06:44 05/19/18 06:44 Microbiology 05/18/18 14:17 Sputum - Expectorated Sputum Gram Stain - Final 05/18/18 14:17 Sputum - Expectorated Sputum Sputum Culture - Final Heavy growth normal respiratory mikey 05/15/18 14:20 Blood - Peripheral Aerobic Blood Culture - Final No growth in 5 days 05/15/18 14:20 Blood - Peripheral Anaerobic Blood Culture - Final 05/15/18 14:05 Blood - Peripheral Aerobic Blood Culture - Final 05/15/18 14:05 Blood - Peripheral Anaerobic Blood Culture - Final No growth in 5 days - Imaging Impressions Chest X-Ray 05/20/18 18:14 CONCLUSION: Cardiomegaly. No definite infiltrates seen on this examination which is limited in quality by patient body habitus. Assessment and Plan - Plan Patient is a 33-year-old white female with a past medical history of COPD, hypertension, GERD and bipolar disorder who presented to the ER after a failed outpatient treatment with Bactrim for right upper thigh cellulitis. Right Thigh Cellulitis -ruled out DVT right venous doppler -Strep Bacteremia with Strep viridans, managed by ID specialist requested CT of right femur however patient is unable to be accommodated by machine due to body habitus. US done 05/18 indicated no drainable fluid. as per ID will need to follow D on both isolates. has productive cough with new CXR no infiltrates seen Recommended to continue Vancomycin and if improving on Clindamycin 300 mg QID to complete 14 days of antibiotics. Weakness and falls -PT evaluate ordered; recommending discharge with home health Hypertension; controlled -continue home medicines COPD non exacerbated/chronic respiratory failure the patient uses oxygen at home 3L/min when gets activity and at night. -continue Bronchodilator, Mucolytic and Incentive spirometry -patient uses oxygen at home 3L/min PRN/nights Obstructive Sleep apnea on CPAP -asked for RT evaluation for CPAP GERD -continue PPI Bipolar disorder -continue Home medicines. Morbid Obesity strongly recommended diet and exercise, weight loss warranted. discharge Home on [facility] for skilled nurse and PT DVT prophylaxis with Lovenox. Code Status: Full code. Discussed Condition With: Patient and Nurse Miss Goldman. Discharge Planning: Discharge Home on [facility] for PT and Skilled nurse.
--- NOTE | 2018-05-21 10:32 | P.DCO ---
- Physical Therapy Order: Evaluate and treat, Improve ambulation, Strength and gait training - Home Health Nursing Order: Medical education, Signs/symptoms of disease process, Medication education-adverse effect, Nursing assessment with vital signs - Certification I have seen patient Andree Flynn on 05/21/18. My clinical findings support the need for the requested home health care services because: Limited mobility due to disease progression I certify that my clinical findings support that this patient is homebound because: Unsafe to leave home unassisted
--- NOTE | 2018-05-21 10:34 | P.DS ---
Date of admission: 05/16/18 10:16 Primary care physician: Zay Baeza Attending physician on discharge: Ethna Maher Anticipated date of discharge: 05/21/18 Brief History from admission: This is a pleasant 33 y/o Female with COPD, Bipolar disorder, who came to ER with one month history of right posterior upper thigh pain, Sharp pain, 8/10 in intensity, The patient states that she had a pimple in the area, saw her PCP and took a course of Bactrim with no improvement. She states that she was then seen at [facility] and had a needle aspiration and another round of antibiotics with no improvement of symptoms. She states that she began to have chills over the last few days. She states that she measured a fever of 100.4 by oral thermometer last night. She denies numbness, tingling, weakness, limitations to ROM of the affected extremity. She has been taking acetaminophen, last dose around 5 am today. She has Hypertension, GERD, Morbid obesity, Seen in Emergency room confirm the story evaluated. DS: Diagnosis - Discharge Diagnosis (1) Morbid obesity with BMI of 70 and over, adult Status: Acute (2) Bacteremia due to Gram-positive bacteria Status: Acute (3) Cellulitis of leg, left Status: Acute DS: Summary Hospital Course: This is a pleasant 33 y/o Female with COPD, Bipolar disorder, who came to ER with one month history of right posterior upper thigh pain, Sharp pain, 8/10 in intensity, The patient states that she had a pimple in the area, saw her PCP and took a course of Bactrim with no improvement. She states that she was then seen at [facility] and had a needle aspiration and another round of antibiotics with no improvement of symptoms. She states that she began to have chills over the last few days. She states that she measured a fever of 100.4 by oral thermometer last night. She denies numbness, tingling, weakness, limitations to ROM of the affected extremity. She has been taking acetaminophen, last dose around 5 am today. She has Hypertension, GERD, Morbid obesity, Seen in Emergency room confirm the story evaluated. 05/21: Seen in her bedroom stable no new issues, asking for Tessalon pearls on going home, already recommended for Clindamycin by mouth by ID specialist on discharge for 14 days, 300 mg QID, No nausea, vomit or diarrhea. Results - Labs CBC & Chem 7: 05/19/18 06:44 05/19/18 06:44 Microbiology 05/18/18 14:17 Sputum - Expectorated Sputum Gram Stain - Final 05/18/18 14:17 Sputum - Expectorated Sputum Sputum Culture - Final Heavy growth normal respiratory mikey 05/15/18 14:20 Blood - Peripheral Aerobic Blood Culture - Final No growth in 5 days 05/15/18 14:20 Blood - Peripheral Anaerobic Blood Culture - Final 05/15/18 14:05 Blood - Peripheral Aerobic Blood Culture - Final 05/15/18 14:05 Blood - Peripheral Anaerobic Blood Culture - Final No growth in 5 days - Imaging Impressions Chest X-Ray 05/20/18 18:14 CONCLUSION: Cardiomegaly. No definite infiltrates seen on this examination which is limited in quality by patient body habitus. Assessment and Plan - Plan Patient is a 33-year-old white female with a past medical history of COPD, hypertension, GERD and bipolar disorder who presented to the ER after a failed outpatient treatment with Bactrim for right upper thigh cellulitis. Right Thigh Cellulitis -ruled out DVT right venous doppler -Strep Bacteremia with Strep viridans, managed by ID specialist requested CT of right femur however patient is unable to be accommodated by machine due to body habitus. US done 05/18 indicated no drainable fluid. as per ID will need to follow D on both isolates. has productive cough with new CXR no infiltrates seen Recommended to continue Vancomycin and if improving on Clindamycin 300 mg QID to complete 14 days of antibiotics. Weakness and falls -PT evaluate ordered; recommending discharge with home health Hypertension; controlled -continue home medicines COPD non exacerbated/chronic respiratory failure the patient uses oxygen at home 3L/min when gets activity and at night. -continue Bronchodilator, Mucolytic and Incentive spirometry -patient uses oxygen at home 3L/min PRN/nights Obstructive Sleep apnea on CPAP -asked for RT evaluation for CPAP GERD -continue PPI Bipolar disorder -continue Home medicines. Morbid Obesity strongly recommended diet and exercise, weight loss warranted. discharge Home on [facility] for skilled nurse and PT DVT prophylaxis with Lovenox. Code Status: Full code. Discussed Condition With: Patient and Nurse Miss Goldman. Discharge Planning: Discharge Home on [facility] for PT and Skilled nurse. - Time Spent with Patient Total time spent providing and/or coordinating discharge services: Greater than 30 minutes - Quality: VTE Deep Vein Thrombosis/Pulmonary Embolism Present on Admission: No Exam Vital signs: Vital Signs 05/20/18 12:00 05/20/18 15:26 05/20/18 16:00 Temperature 97.2 F L 97.8 F Pulse Rate 78 89 109 H Respiratory Rate 17 16 17 Blood Pressure 153/67 H 128/72 Pulse Oximetry 94 L 92 L 05/20/18 20:00 05/20/18 21:49 05/21/18 00:00 Temperature 97.9 F 98.1 F Pulse Rate 73 82 73 Respiratory Rate 22 21 22 Blood Pressure 123/65 125/62 Pulse Oximetry 92 L 97 92 L 05/21/18 04:00 05/21/18 04:07 05/21/18 08:00 Temperature 97.8 F 97.9 F Pulse Rate 83 68 71 Respiratory Rate 22 18 20 Blood Pressure 170/69 H 132/63 Pulse Oximetry 96 05/21/18 09:10 Temperature Pulse Rate 80 Respiratory Rate 17 Blood Pressure Pulse Oximetry 97 Intake & Output 05/20/18 05/21/18 05/21/18 18:59 06:59 18:59 Intake Total 600 / 600 1270 / 1270 Balance 600 / 600 1270 / 1270 Intake: IV 600 / 600 1030 / 1030 NS Inj 1,000 ML @ 100 mls/hr IV 600 / 600 0 / 0 .CONT .Q10H [facility] Rx#:[id number] Vancomycin Inj 1,500 MG In NS 1030 / 1030 Inj 500 ML @ 250 mls/hr IV.SIG Q12H [facility] Rx#:[id number] Oral 240 / 240 Other: # Voids 3 Narrative: GENERAL: Morbidly obese white female in NAD. SKIN: Erythema and edema on right posterior thigh area. Improving. HEAD: Atraumatic. Normocephalic. CARDIOVASCULAR: Regular rate and rhythm. No murmur appreciated. RESPIRATORY: No accessory muscle use. Clear to auscultation. Breath sounds equal bilaterally. GASTROINTESTINAL: Abdomen soft, non-tender, nondistended. MUSCULOSKELETAL: No obvious deformities. No clubbing. No cyanosis. NEUROLOGICAL: Awake and alert. No obvious cranial nerve deficits. Motor grossly within normal limits. Normal speech. PSYCHIATRIC: Appropriate mood and affect; insight and judgment normal. Results Procedures completed during hospitalization: None - Impressions ITS Impressions Venous Doppler Study 05/15/18 14:33 CONCLUSION: Technically Limited exam grossly negative for right leg DVT Lower Extremity Ultrasound 05/18/18 00:00 CONCLUSION: 1. No sonographic evidence for focal drainable fluid collection. Chest X-Ray 05/20/18 18:14 CONCLUSION: Cardiomegaly. No definite infiltrates seen on this examination which is limited in quality by patient body habitus. Discharge Plan - Discharge Disposition Patient Disposition: /Home Health Service - Discharge Condition Condition: Stable - Discharge Order Discharge Orders: Discharge Order (Routine); Ordered 05/21/18 Ordered By: Ethan Maher - Discharge Details Anticipated Discharge Date: 05/21/18 Discharge Comment: Needs strict follow up with PCP in three days. - Physicians Team Primary Care Provider: Zay Baeza Attending Provider: Ethan Maher Other Providers: Christine Johnson MD ; [facility],Ag[facility]
== END 2018-05-21 11:24 | disposition home health service (06) ==
LOC: NEDA 11:39 → NEPE 11:39 → NEPFCDU 18:21 → N07 05-19 00:08
PROVIDERS: ADMIT Internal Medicine; ATTEND Internal Medicine